=== PATIENT | female | born 1945 | race Hispanic/Latino ===

== ENCOUNTER 2021-11-11 07:27 | Inpatient (IN) | payer MEDICARE ==
[2021-11-11] MEDS ORDERED: SODIUM CHLORIDE 0.9% 1000 ML 1,000 ML IV ONE (07:59)
[2021-11-11] MEDS ORDERED: PANTOPRAZOLE 40 MG INJ IV ONE (07:59)
[2021-11-11] MEDS ORDERED: ONDANSETRON 4 MG/2 ML INJ IV ONE (07:59)
[2021-11-11] MEDS ORDERED: FAMOTIDINE 20 MG/2 ML INJ IV ONE (08:00)
[2021-11-11] MEDS ORDERED: LACTATED RINGERS 1,000 ML IV ONE (08:37)
--- NOTE | 2021-11-11 08:38 | XRay Report ---
XR chest 1V ap INDICATION / CLINICAL INFORMATION: weakness, vomiting. COMPARISON: None available. FINDINGS: SUPPORT DEVICES: None. HEART /PULMONARY VASCULATURE: No significant abnormality. LUNGS / PLEURA: There is patchy airspace consolidation of the right mid and lower lung. Mild patchy o pacities in the left lung base. No sizable pleural effusion. No pneumothorax. ADDITIONAL FINDINGS: No significant additional findings. IMPRESSION: Findings indicative of bibasilar pneumonia, right greater than left. Signer Name: Brian Hanson MD Signed: 11/11/2021 8:34 AM Workstation Name: [id number]
--- NOTE | 2021-11-11 08:44 | Emergency Department Report ---
ED Abdominal Pain HPI - General Chief Complaint: GI Bleed Stated Complaint: GI BLEED Time Seen by Provider: 11/11/21 07:58 Source: EMS Mode of arrival: Stretcher Limitations: Altered Mental Status, Physical Limitation - History of Present Illness Initial Comments: 76-year-old female with unknown past medical history brought in by EMS from personal skilled nursing for vomiting blood. Patient is altered here with respect to her mental status and no family members or close friends are present to provide additional HPI. Report provided to me by the emergency department nurse,Britany. Per EMSs report, patient lives at a personal care facility and has not been visited by a nurse for 2 days. The patient was in her usual state of health last night. She is found by a roommate to be confused and covered in coffee- ground emesis. No further information provided Patient denies any pain at this time but states "I feel confused." She cannot tell this provider when she started vomiting coffee-ground emesis. She denies any chest pain shortness of breath or difficulty breathing. She cannot provide information concerning what medications she currently takes MD Complaint: other (unknown exact time of onset of symptoms) -: unknown Location: diffuse Radiation: none Migration to: no migration Severity: Unable to Determine Severity scale (0 -10): 6 Quality: other (Patient unable to determine at this time) Improves With: other (Patient unable to determine at this time) Worsens With: other (Patient unable to determine at this time) Context: other (Patient unable to determine at this time) Associated Symptoms: nausea, vomiting, other Treatments Prior to Arrival: other (Patient unable to determine at this time) - Related Data LMP (females 10-50): other (Not applicable) Allergies Allergy/AdvReac Type Severity Reaction Status Date / Time tetracycline Allergy Unknown Verified 11/11/21 07:36 ED Review of Systems ROS: Stated complaint: GI BLEED Other details as noted in HPI Comment: Unobtainable due to pts medical conditions ED Past Medical Hx - Past Medical History Previous Medical History?: Yes Hx Hypertension: Yes Hx GERD: Yes Hx Asthma: Yes Hx COPD: Yes - Surgical History Additional Surgical History: unknown; pt unable to provide information - Family History Family history: no significant - Social History Smoking Status: Former Smoker ED Physical Exam - General Limitations: No Limitations, Physical Limitation General appearance: lethargic, other (pale, ashen appearing) - Head Head exam: Present: atraumatic, normocephalic - Eye Eye exam: Present: normal appearance, PERRL, EOMI, other (conjunctival pallor) - ENT ENT exam: Present: normal exam, mucous membranes dry, other (dry coffee ground emesis on pt's tongue; no visualized foreign bodies on the patient's oropharynx) - Neck Neck exam: Present: normal inspection, full ROM. Absent: tenderness, meningismus, lymphadenopathy, thyromegaly, other - Respiratory Respiratory exam: Present: normal lung sounds bilaterally, respiratory distress. Absent: wheezes, rales, rhonchi, chest wall tenderness, accessory muscle use, decreased breath sounds - Cardiovascular Cardiovascular Exam: Present: regular rate, normal rhythm, normal heart sounds. Absent: bradycardia, tachycardia, irregular rhythm, systolic murmur, diastolic murmur, rubs, gallop, clicks, JVD, S3, S4, other - GI/Abdominal GI/Abdominal exam: Present: soft, diminished bowel sounds. Absent: tenderness, guarding, rebound, rigid, normal bowel sounds, hyperactive bowel sounds, hypoactive bowel sounds, organomegaly, mass, bruit, pulsatile mass - Rectal Rectal exam: Present: black stool - External exam: Present: normal external exam - Extremities Exam Extremities exam: Present: normal inspection, full ROM, normal capillary refill. Absent: tenderness, joint swelling, calf tenderness, other - Back Exam Back exam: Present: normal inspection, full ROM. Absent: CVA tenderness (R), CVA tenderness (L), muscle spasm, paraspinal tenderness, vertebral tenderness - Neurological Exam Neurological exam: Present: altered, CN II-XII intact, motor sensory deficit, reflexes normal, other (unable to test gait secondary to pt's mental status ) - Psychiatric Psychiatric exam: Present: normal affect, normal mood - Skin Skin exam: Present: warm, dry, intact, pallor. Absent: normal color, rash, cyanosis, diaphoretic, erythema, urticaria, vesicles, abrasion, ecchymosis ED Course Vital Signs 11/11/21 11/11/21 07:30 08:14 Temperature 97.9 F 98.1 F Pulse Rate 92 H 95 H Respiratory 16 14 Rate Blood Pressure 104/53 Blood Pressure 132/76 104/53 [Left] O2 Sat by Pulse 97 97 Oximetry - Reevaluation(s) Reevaluation #1: 06/24/22 10:50 Patient has stable vitals. She remains ill-appearing although her pallor has improved. Her speech is clear. She denies any pain. ED Medical Decision Making - Lab Data Result diagrams: 11/11/21 08:18 11/11/21 08:18 - EKG Data -: EKG Interpreted by Me EKG shows normal: sinus rhythm Rate: normal - EKG Data When compared to previous EKG there are: previous EKG unavailable Interpretation: no acute changes 11/11/21 11:50 Sinus rhythm. Ventricular rate 96 bpm. P waves are present and proceed every QRS complex. Intervals normal. No ST segment depressions or elevations. No T wave flattening or inversions. No ectopy. No arrhythmia. Normal axis. Sinus rhythm. - Radiology Data Radiology results: report reviewed - Medical Decision Making 76-year-old female with multiple medical comorbidities brought in by EMS for weakness and coffee-ground emesis, weakness, altered mental status., With timing of onset of symptoms unknown. Patient found to have multiple electrolyte derangements on work-up and significant leukocytosis. Chest x-ray reviewed. CT head and abdomen pelvis results reviewed. Patient given multiple liters of normal saline, Zofran, Pepcid, she was started on a Protonix drip, she was given ceftriaxone and azithromycin for broad-spectrum antibiotic coverage. Case reviewed with admitting hospitalist, Dr. Villasenor. I believe the pt will require admission to the MICU. Pt's care transferred to him for the pt's inpatient admission. Critical Care Time: Yes Critical care time in (mins) excluding proc time.: 30 Critical care attestation.: If time is entered above; I have spent that time in minutes in the direct care of this critically ill patient, excluding procedure time. ED Disposition Clinical Impression: Upper GI bleed, Sepsis, Community acquired pneumonia Disposition: ADMITTED INPATIENT Is pt being admited?: Yes Does the pt Need Aspirin: No Condition: Serious Instructions: Bacterial Pneumonia (ED) Forms: Accompanied Note
[2021-11-11] MEDS ORDERED: cefTRIAXone/NS 1 GM/50 ML 1 GM/50 ML BAG IV ONE (09:12)
[2021-11-11] MEDS ORDERED: AZITHROMYCIN/NS 500 MG/250 ML 500 MG/250 ML BAG IV ONE (09:13)
[2021-11-11 09:15] LABS: Hematocrit 35.7 % (30.3-42.9); Hemoglobin 11.1 gm/dl (10.1-14.3); Mean Corpuscular HGB Conc 31 % (30-34); Mean Corpuscular Volume 89 fl (79-97); Platelet Count 314 K/mm3 (140-440); Red Blood Count 4.01 M/mm3 (3.65-5.03); Red Cell Distribution Width 17.3 % (13.2-15.2)
[2021-11-11 09:39] LABS: INR 1.13 (0.87-1.13)
[2021-11-11 09:42] LABS: Partial Thromboplastin Time 32.4 Sec. (24.2-36.6)
--- NOTE | 2021-11-11 09:47 | Cat Scan Report ---
CT BRAIN: 11/11/2021 INDICATION / CLINICAL INFORMATION: altered mental status. COMPARISON: None available. FINDINGS: BRAIN/INTRACRANIAL STRUCTURES: Unenhanced CT images of the brain demonstrate no evidence of acute abn ormality. Ventricles and sulci are prominent in size, consistent with diffuse cerebral atrophy. Chronic white matter hypoattenuation is present throughout the cerebral hemispheric white matter, con sistent with chronic small vessel ischemic change. There is no CT evidence of acute ischemic injury, hemorrhage, or mass. There are no abnormal extra-ax ial fluid collections. EXTRACRANIAL STRUCTURES: Unremarkable. IMPRESSION: No acute abnormality. All CT scans at this location are performed using dose reduction to ALARA by means of automated expos ure control. Signer Name: Leland Elliott MD Signed: 11/11/2021 9:43 AM Workstation Name: [id number] [id number]
--- NOTE | 2021-11-11 09:58 | Cat Scan Report ---
CT ABDOMEN AND PELVIS WITHOUT CONTRAST INDICATION / CLINICAL INFORMATION: altered mental status, coffee ground emesis, hypot. TECHNIQUE: Axial CT images were obtained through the abdomen and pelvis without IV contrast. All CT scans at [facility] location are performed using CT dose reduction for ALARA by means of automated exposure control. COMPARISON: None available. FINDINGS: LOWER CHEST: Probable multifocal pneumonia is seen throughout the included portions of the right lung . Mild atelectasis is seen along the left lung base. There is severe calcification of the mitral valv e with moderate coronary atherosclerosis. No other significant abnormality. LIVER: No significant abnormality. GALLBLADDER: Surgically absent. BILE DUCTS: No significant abnormality. PANCREAS: No significant abnormality. SPLEEN: No significant abnormality. ADRENALS: No significant abnormality. RIGHT KIDNEY/URETER: No significant abnormality. LEFT KIDNEY/URETER: No significant abnormality. STOMACH/SMALL BOWEL: No significant abnormality. COLON: No significant abnormality. APPENDIX: No significant abnormality. PERITONEUM: No free fluid. No free air. No fluid collection. LYMPH NODES: No significant adenopathy. VASCULATURE: There is mild atherosclerosis. No other significant abnormality. URINARY BLADDER: Drained by a Stanford catheter. REPRODUCTIVE ORGANS: Prior hysterectomy. No significant abnormality. ADDITIONAL FINDINGS: None. BONES: No acute findings. There is moderate spondylosis with mild lumbar dextroscoliosis. IMPRESSION: 1. Suspected multifocal right pneumonia. 2. No acute findings in the abdomen or pelvis by noncontrast imaging to account for the patient's cof fee ground emesis. 3. Additional findings as above. Signer Name: Srinivasa Bell MD Signed: 11/11/2021 9:54 AM Workstation Name: [employer]
[2021-11-11 10:33] LABS: Band Neutrophils # (Manual) 1.1 K/mm3; Basophils % (Manual) 0 % (0.0-1.8); Eosinophils % (Manual) 0 % (0.0-4.3); Total Cells Counted 200
[2021-11-11 10:37] LABS: Large Platelets Rare; Ovalocytes Rare; Platelet Estimate Consistent w Auto; Poikilocytosis Few
[2021-11-11 10:45] LABS: Albumin 3.5 g/dL (3.9-5); Calcium 8.5 mg/dL (8.4-10.2)
[2021-11-11 11:13] LABS: Bilirubin,Urine Negative (Negative); Blood,Urine Negative (Negative); Color,Urine Yellow (Yellow); Hyaline Casts,Urine 2 /LPF; Mucus,Urine FEW /HPF; Urobilinogen,Urine < 2.0 mg/dL (<2.0)
--- NOTE | 2021-11-11 11:14 | History and Physical Report ---
History of Present Illness Chief complaint: She is confused and was coughing up blood History of present illness: 76 YO Female Personal Long-Term Resident with Vascular Dementia, Cerebral Atherosclerosis, HTN, GERD, Obesity, COPD, Asthma presents ED for evaluation. Patient is confused and lethargic with diminished cognition at the time my evaluation and is unable to provide history. Patient history provided by EMS staff, ED staff, as well as personal halfway staff. As per staff the patient was in her usual state of health overnight and was found by a roommate today to be confused and coughing up blood. EMS was notified and upon arrival the patient was found to be in distress and subsequently transported to [facility] for further care and evaluation of the aforementioned symptoms. The patient was seen and evaluated in the emergency department. All lab and imaging studies reviewed. Patient found to have pneumonia complicated by sepsis, toxic metabolic encephalopathy, lactic acidosis, hyponatremia, acute kidney injury, as well as elevated liver function test. Patient also found to have evidence of upper GI bleed. GI team consulted in ED. Patient admitted to IMCU due to risk of worsening symptoms and for medical stabilization. Patient initiated on sepsis protocol as well as pneumonia protocol. No prior admission for review. No medication listed at time of admission for reconciliation. Advanced care planning conducted in ED. Patient remains confused and lethargic but has a positive gag reflex and is able to protect her airway without difficulty at this time. Past History Past Medical History: COPD, GERD, hypertension, other (See HPI) Past Surgical History: Other (Unable to obtain) Social history: . denies: smoking, alcohol abuse, prescription drug abuse Family history: hypertension Medications and Allergies Allergies Allergy/AdvReac Type Severity Reaction Status Date / Time tetracycline Allergy Unknown Verified 11/11/21 07:36 Active Meds: Active Medications Pantoprazole Sodium 80 mg/ (Sodium Chloride) 100 mls @ 10 mls/hr IV DIRECT LORNE Review of Systems ROS unobtainable: due to mental status Exam - Constitutional Vitals: Temp Pulse Resp BP Pulse Ox 98.1 F 95 H 14 104/53 97 11/11/21 08:14 11/11/21 08:14 11/11/21 08:14 11/11/21 08:14 11/11/21 08:14 General appearance: Present: mild distress, obese - EENT Eyes: Present: PERRL ENT: hearing intact, clear oral mucosa, other (Dried blood on the patient's lips and in the oropharynx) - Neck Neck: Present: supple - Respiratory Respiratory effort: labored Respiratory: bilateral: diminished - Cardiovascular Rhythm: regular - Extremities Extremities: pulses symmetrical, No edema Peripheral Pulses: abnormal (Capillary refill greater than 3.5 seconds) - Abdominal General gastrointestinal: Present: soft, non-tender, non-distended - Integumentary Integumentary: Present: dry, clammy, decreased turgor - Musculoskeletal Musculoskeletal: generalized weakness - Psychiatric Psychiatric: no appropriate mood/affect, no intact judgment & insight, no memory intact Results - Labs CBC & Chem 7: 11/11/21 08:18 11/11/21 08:18 Labs: Abnormal lab results 11/11/21 11/11/21 11/11/21 Range/Units 08:18 08:18 08:18 WBC 31.8 H (4.5-11.0) K/mm3 RDW 17.3 H (13.2-15.2) % Seg Neuts % (Manual) 91.0 H (40.0-70.0) % Lymphocytes % (Manual) 3.5 L (13.4-35.0) % Seg Neutrophils # Man 28.9 H (1.8-7.7) K/mm3 Lymphocytes # (Manual) 1.1 L (1.2-5.4) K/mm3 PT 15.8 H (12.2-14.9) Sec. Sodium 131 L (137-145) mmol/L Chloride 93.2 L (98-107) mmol/L Carbon Dioxide 18 L (22-30) mmol/L BUN 27 H (7-17) mg/dL Creatinine 2.4 H (0.6-1.2) mg/dL Glucose 136 H (65-100) mg/dL Lactic Acid (0.7-2.0) mmol/L AST 182 H (5-40) units/L ALT 101 H (7-56) units/L Albumin 3.5 L (3.9-5) g/dL 11/11/21 11/11/21 Range/Units 08:18 09:50 WBC (4.5-11.0) K/mm3 RDW (13.2-15.2) % Seg Neuts % (Manual) (40.0-70.0) % Lymphocytes % (Manual) (13.4-35.0) % Seg Neutrophils # Man (1.8-7.7) K/mm3 Lymphocytes # (Manual) (1.2-5.4) K/mm3 PT (12.2-14.9) Sec. Sodium (137-145) mmol/L Chloride (98-107) mmol/L Carbon Dioxide (22-30) mmol/L BUN (7-17) mg/dL Creatinine (0.6-1.2) mg/dL Glucose (65-100) mg/dL Lactic Acid 5.70 H* 6.10 H* (0.7-2.0) mmol/L AST (5-40) units/L ALT (7-56) units/L Albumin (3.9-5) g/dL Assessment and Plan - Patient Problems (1) Sepsis Status: Acute Qualifiers: Acute renal failure type: with acute tubular necrosis Plan to address problem: Sepsis protocol: Chest x-ray, CBC, BMP, urinalysis, IV fluid resuscitation therapy, IV antibiotic therapy, maintain mean arterial pressure greater than equal to 65, blood culture, monitor fluid balance, monitor urine output every shift (2) Gastrointestinal hemorrhage Status: Acute Plan to address problem: CT scan abdomen pelvis, stool for occult blood, GI team consulted. Patient hemoglobin stable at this time. Will consider packed red blood cell transfusion if patient drops hemoglobin greater than 2 g during 24-hour period. (3) Pneumonia Status: Acute Plan to address problem: Pneumonia protocol: Chest x-ray, CBC, CMP, IV antibiotic therapy, supplemental oxygen, pulse oximetry. (4) AUNG (acute kidney injury) Status: Acute Plan to address problem: IV fluid resuscitation therapy, BMP, repeat BMP in a.m. to monitor serum creatinine as well as GFR, monitor fluid balance, (5) Obesity Status: Acute Plan to address problem: Balanced diet, increase physical activity discharge. Outpatient pulmonary follow-up for sleep study. (6) Toxic metabolic encephalopathy Status: Acute Plan to address problem: CT scan head, neuro check, seizure precautions, aspiration precautions, fall precautions, treat sepsis. (7) Hyponatremia syndrome Status: Acute Plan to address problem: BMP, IV fluid resuscitation therapy, repeat BMP in a.m. to monitor serum sodium. (8) DVT prophylaxis Status: Acute Plan to address problem: SCD to bilateral lower extremities while in bed, prophylactic anticoagulation (9) Advance care planning Status: Acute Plan to address problem: Disease education data, care plan discussed, diagnoses discussed, prognosis discussed, patient is full code, +30 minutes. (10) Preventative health care Status: Acute Plan to address problem: Staff counseled regarding home safety precautions, outpatient follow-up with primary care physician for all age and risk factor appropriate screening test. +30 minutes.
[2021-11-11] MEDS ORDERED: LORazepam 2 MG/ML VIAL ONE (11:34)
[2021-11-11] MEDS ORDERED: ONDANSETRON 4 MG/2 ML INJ IV PRN (12:07)
[2021-11-11] MEDS ORDERED: oxyCODONE /ACETAMINOPHEN 5-325MG TAB PO PRN (12:07)
[2021-11-11] MEDS ORDERED: SODIUM CHLORIDE 0.9% 1000 ML IV SOLN IV ONE (12:07)
[2021-11-11] MEDS ORDERED: ACETAMINOPHEN 650 MG RECT SUPP PR PRN (12:07)
[2021-11-11] MEDS ORDERED: HYDROmorphone 0.5 MG/0.5 ML INJ IV PRN ×2 (12:07)
--- NOTE | 2021-11-11 12:19 | Procedure Note ---
Date of procedure: 11/11/21 Pre-op diagnosis: Sepsis Post-op diagnosis: same Procedure: Right femoral vein central line catheter placement under ultrasound guidance The patient was prepped and draped in the usual sterile fashion. A timeout was taken with the patient's nurse at bedside to verify the correct patient, the correct procedure, and the correct operative site. Local anesthesia obtained with 1% lidocaine. Ultrasound was utilized to localize the right femoral vein without difficulty. The Seldinger technique was utilized with a seeker needle to access the right femoral vein under ultrasound guidance without difficulty. A guidewire was then advanced via the seeker needle into the right femoral vein and the seeker needle subsequently removed over the guidewire. A scalpel was used to incise the skin at the insertion site. A dilator was then passed over the guidewire into the right femoral vein without difficulty and subsequently removed. A preflush triple-lumen catheter was then advanced into the right femoral vein and the guidewire subsequently removed. All 3 ports flush and drawl with ease. 3-0 silk suture was utilized to suture the line in place. A Biopatch was placed at the insertion site. A sterile dressing was utilized to cover the right femoral vein central line catheter. Estimated blood loss minimal. Specimens none complications none. Anesthesia: local Surgeon: MARK MALIK Estimated blood loss: minimal Pathology: none Condition: other ([facility])
--- NOTE | 2021-11-11 13:54 | Electrocardiograph Report ---
[facility] Test Date: 2021-11-11 Test Time: 11:22:19 Pat Name: SHIVA DENG Department: Room: [facility] Gender: F Blade Aligner: CALLIE : 1945 Requested By: CANDY GUILLEN Order Number: [id number] Reading MD: Hanane Bustos Measurements Intervals [place] Rate: 96 P: 22 UT: 144 QRS: -2 QRSD: 96 T: 79 QT: 353 QTc: 445 Interpretive Statements Sinus rhythm No previous ECG available for comparison Electronically Signed On 11-11-2021 13:54:13 EDT by Hanane Bustos
[2021-11-11] MEDS ORDERED: SODIUM CHLORIDE 0.9% 1000 ML 1,000 ML ONE (14:21)
[2021-11-11] MEDS: HEPARIN 5,000 UNIT/1 ML VIAL SUB-Q SCH ×2 (16:21→21:52)
[2021-11-11] MEDS: cefTRIAXone/NS 2 GM/100 ML 2 GM/100 ML BAG IV SCH (18:16)
[2021-11-11] MEDS: AZITHROMYCIN/NS 500 MG/250 ML 500 MG/250 ML BAG IV SCH (18:18)
[2021-11-11] MEDS ORDERED: PANTOPRAZOLE 40 MG INJ IV SCH (22:00)
--- NOTE | 2021-11-12 00:34 | Consultation ---
DATE OF CONSULTATION: 11/11/2021 REFERRING PHYSICIAN: Dr. Tomi Eugene. INDICATION: GI bleed. HISTORY OF PRESENT ILLNESS: The patient is a 76-year-old female with history of dementia, hypertension, reflux, obesity, COPD and asthma. The patient was found confused and lethargic and was brought to the Emergency Room. There is report of patient may have some coffee emesis. The patient subsequently was diagnosed with sepsis and pneumonia and admitted. The patient without any noted melena or hematemesis since coming to the Emergency Room. No other specific complaints. The patient remains confused and lethargic. All the history per chart. No other specific complaints. PAST MEDICAL HISTORY: 1. Reflux. 2. Hypertension. 3. Chronic obstructive pulmonary disease. MEDICATIONS: Reviewed, updated in chart. ALLERGIES: TETRACYCLINE. SOCIAL HISTORY: No alcohol, tobacco or drug abuse. FAMILY HISTORY: Colon cancer. REVIEW OF SYSTEMS: GENERAL: Some weakness. HEENT: No visual complaints or tinnitus. PULMONARY: No shortness of breath, chest pain. GASTROINTESTINAL: Reports hematemesis. All points of 13-point review of system otherwise negative. PHYSICAL EXAMINATION: VITAL SIGNS: Temperature 98.8, pulse 97, respirations 20, blood pressure 100/50. GENERAL: Obese female, in no acute distress. HEENT: Pupils round and reactive. PULMONARY: Rhonchi. CARDIOVASCULAR: Regular rate and rhythm. Normal S1, S2. ABDOMEN: Positive bowel sounds, soft. SKIN: No obvious rashes. LABORATORY DATA: Pertinent for white count 32, hemoglobin and hematocrit 11.1 and 35.7, platelet count of 314. Coags within normal limits. Chem-7: Sodium of 131, potassium 4.8, chloride 93, CO2 of 18, BUN and creatinine of 27 and 2.4. ASSESSMENT: A 76-year-old male with multiple medical problems as above, being seen now for altered mental status with reported some coffee emesis. The patient now diagnosed with pneumonia and sepsis. The patient is showing no further signs of bleeding since being admitted. His hemoglobin and hematocrit are stable. Management as noted below. PLAN: 1. Follow hematocrit and transfuse as needed. 2. PPI IV b.i.d. 3. Pneumonia and other issues per primary team. 4. No plans for EGD or other GI intervention at this time. 5. We will follow further recommendation based on progress. TID: [id number] RECEIPT: [id number] CAB/GOLDIE
[2021-11-12] MEDS: PANTOPRAZOLE 80 MG in SODIUM CHLORIDE 0.9% 100 ML IV SCH ×2 (02:19→13:48)
[2021-11-12 05:10] LABS: Hematocrit 26.9 % (30.3-42.9); Hemoglobin 8.4 gm/dl (10.1-14.3); Mean Corpuscular HGB Conc 31 % (30-34); Mean Corpuscular Volume 89 fl (79-97); Platelet Count 221 K/mm3 (140-440); Red Blood Count 3.03 M/mm3 (3.65-5.03); Red Cell Distribution Width 17.3 % (13.2-15.2)
[2021-11-12 05:35] LABS: Albumin 3.5 g/dL (3.9-5); Calcium 7.6 mg/dL (8.4-10.2)
[2021-11-12 06:30] LABS: Basophils % (Manual) 0 % (0.0-1.8); Eosinophils % (Manual) 0 % (0.0-4.3); Monocytes % (Manual) 0 % (0.0-7.3); Total Cells Counted 100
[2021-11-12 06:31] LABS: Ovalocytes Few
[2021-11-12 06:32] LABS: Platelet Estimate Consistent w Auto
--- NOTE | 2021-11-12 11:20 | Progress Note ---
Assessment and Plan Assessment and plan: 76 YO Female Personal Nursing Home Resident with Vascular Dementia, Cerebral Atherosclerosis, HTN, GERD, Obesity, COPD, Asthma presents ED for evaluation. Patient is confused and lethargic with diminished cognition at the time my evaluation and is unable to provide history. Patient history provided by EMS staff, ED staff, as well as personal longterm staff. As per staff the patient was in her usual state of health overnight and was found by a roommate today to be confused and coughing up blood. EMS was notified and upon arrival the patient was found to be in distress and subsequently transported to [facility] for further care and evaluation of the aforementioned symptoms. The patient was seen and evaluated in the emergency department. All lab and imaging studies reviewed. Patient found to have pneumonia complicated by sepsis, toxic metabolic encephalopathy, lactic acidosis, hyponatremia, acute kidney injury, as well as elevated liver function test. Patient also found to have evidence of upper GI bleed. GI team consulted in ED. Patient admitted to IMCU due to risk of worsening symptoms and for medical stabilization. Patient initiated on sepsis protocol as well as pneumonia protocol. No prior admission for review. No medication listed at time of admission for reconciliation. Advanced care planning conducted in ED. Patient remains confused and lethargic but has a positive gag reflex and is able to protect her airway without difficulty at this time. 11/12: Patient seen and evaluated. No abdominal pain noted no further hematemesis appreciated. CT abdomen pelvis concerning for suspected multifocal right pneumonia. Considering sepsis picture initially on admission will also rule out COVID. ID consulted. I will repeat H&H this generalized decrease and CBC numbers noted this could be due to dilution from fluid administered. Unfortunately I do not know what her baseline is. She does have what appears to be elevated liver enzymes. We will obtain an ultrasound of the abdomen when able probably in AM. Will await GI evaluation I will also check hepatitis profile. I have requested records from the facility where she came from and plan discussed with the patient and also with nursing staff. CT abdomen and pelvis (1) Sepsis Status: Acute Qualifiers: Acute renal failure type: with acute tubular necrosis Plan to address problem: Sepsis protocol: Chest x-ray, CBC, BMP, urinalysis, IV fluid resuscitation therapy, IV antibiotic therapy, maintain mean arterial pressure greater than equal to 65, blood culture, monitor fluid balance, monitor urine output every shift (2) Gastrointestinal hemorrhage Status: Acute Plan to address problem: CT scan abdomen pelvis, stool for occult blood, GI team consulted. Patient hemoglobin stable at this time. Will consider packed red blood cell transfusion if patient drops hemoglobin greater than 2 g during 24-hour period. (3) Pneumonia Status: Acute Plan to address problem: Pneumonia protocol: Chest x-ray, CBC, CMP, IV antibiotic therapy, supplemental oxygen, pulse oximetry. (4) AUNG (acute kidney injury) with vasomotor nephropathy Status: Acute Plan to address problem: IV fluid resuscitation therapy, BMP, repeat BMP in a.m. to monitor serum creatinine as well as GFR, monitor fluid balance, (5) Obesity Status: Acute Plan to address problem: Balanced diet, increase physical activity discharge. Outpatient pulmonary follow-up for sleep study. (6) Toxic metabolic encephalopathy Status: Acute Plan to address problem: CT scan head, neuro check, seizure precautions, aspiration precautions, fall precautions, treat sepsis. (7) Hyponatremia syndrome Status: Acute Plan to address problem: BMP, IV fluid resuscitation therapy, repeat BMP in a.m. to monitor serum sodium. (8) elevated liver enzymes possible hepatitis (9) DVT prophylaxis Status: Acute Plan to address problem: SCD to bilateral lower extremities while in bed, prophylactic anticoagulation (10) Advance care planning Status: Acute Plan to address problem: Disease education data, care plan discussed, diagnoses discussed, prognosis discussed, patient is full code, +30 minutes. (11) Preventative health care Status: Acute Plan to address problem: Staff counseled regarding home safety precautions, outpatient follow-up with primary care physician for all age and risk factor appropriate screening test. +30 minutes. History Interval history: Patient seen and examined no further vomiting noted no abdominal pain or elevated blood pressure. She is angry and upset and wants to eat. Hospitalist Physical - Physical exam Narrative exam: VITAL SIGNS: Reviewed. GENERAL: The patient appears normally developed, obese vital signs as documented. HEAD: No signs of head trauma. EYES: Pupils are equal. Extraocular motions intact. EARS: Hearing grossly intact. MOUTH: Oropharynx is normal. NECK: No adenopathy, no JVD. CHEST: Chest with clear breath sounds bilaterally. No wheezes, rales, or rhonchi. CARDIAC: Regular rate and rhythm. S1 and S2, without murmurs, gallops, or rubs. VASCULAR: No Edema. Peripheral pulses normal and equal in all extremities. ABDOMEN: Soft, non tender and non distended. No rebound or guarding, and no masses palpated. Bowel Sounds normal. MUSCULOSKELETAL: Good range of motion of all major joints. Extremities without clubbing, cyanosis or edema. NEUROLOGIC EXAM: Alert and oriented x 3 No focal sensory or strength deficits. Speech normal. Follows commands. PSYCHIATRIC: Mood normal. SKIN: detail exam as documented in skin assessment - Constitutional Vitals: Temp Pulse Resp BP Pulse Ox 98.9 F 103 H 25 H 124/86 89 11/12/21 04:00 11/12/21 06:01 11/12/21 06:01 11/12/21 06:01 11/12/21 05:31 General appearance: Present: mild distress, obese Results - Labs CBC & Chem 7: 11/12/21 04:54 11/12/21 04:54 Labs: Laboratory Last Values WBC 20.7 K/mm3 (4.5-11.0) H 11/12/21 04:54 RBC 3.03 M/mm3 (3.65-5.03) L 11/12/21 04:54 Hgb 8.4 gm/dl (10.1-14.3) L 11/12/21 04:54 Hct 26.9 % (30.3-42.9) L D 11/12/21 04:54 MCV 89 fl (79-97) 11/12/21 04:54 MCH 28 pg (28-32) 11/12/21 04:54 MCHC 31 % (30-34) 11/12/21 04:54 RDW 17.3 % (13.2-15.2) H 11/12/21 04:54 Plt Count 221 K/mm3 (140-440) 11/12/21 04:54 Add Manual Diff Complete 11/12/21 04:54 Total Counted 100 11/12/21 04:54 Seg Neutrophils % Catering Manager 11/12/21 04:54 Seg Neuts % (Manual) 93.0 % (40.0-70.0) H 11/12/21 04:54 Band Neutrophils % 0 % 11/12/21 04:54 Lymphocytes % (Manual) 7.0 % (13.4-35.0) L 11/12/21 04:54 Reactive Lymphs % (Man) 0 % 11/12/21 04:54 Monocytes % (Manual) 0 % (0.0-7.3) 11/12/21 04:54 Eosinophils % (Manual) 0 % (0.0-4.3) 11/12/21 04:54 Basophils % (Manual) 0 % (0.0-1.8) 11/12/21 04:54 Metamyelocytes % 0 % 11/12/21 04:54 Myelocytes % 0 % 11/12/21 04:54 Promyelocytes % 0 % 11/12/21 04:54 Blast Cells % 0 % 11/12/21 04:54 Nucleated RBC % Not Reportable 11/12/21 04:54 Seg Neutrophils # Man 19.3 K/mm3 (1.8-7.7) H 11/12/21 04:54 Band Neutrophils # 0.0 K/mm3 11/12/21 04:54 Lymphocytes # (Manual) 1.4 K/mm3 (1.2-5.4) 11/12/21 04:54 Abs React Lymphs (Man) 0.0 K/mm3 11/12/21 04:54 Monocytes # (Manual) 0.0 K/mm3 (0.0-0.8) 11/12/21 04:54 Eosinophils # (Manual) 0.0 K/mm3 (0.0-0.4) 11/12/21 04:54 Basophils # (Manual) 0.0 K/mm3 (0.0-0.1) 11/12/21 04:54 Metamyelocytes # 0.0 K/mm3 11/12/21 04:54 Myelocytes # 0.0 K/mm3 11/12/21 04:54 Promyelocytes # 0.0 K/mm3 11/12/21 04:54 Blast Cells # 0.0 K/mm3 11/12/21 04:54 WBC Morphology Not Reportable 11/12/21 04:54 Hypersegmented Neuts Not Reportable 11/12/21 04:54 Hyposegmented Neuts 1+ 11/12/21 04:54 Hypogranular Neuts Not Reportable 11/12/21 04:54 Smudge Cells Not Reportable 11/12/21 04:54 Toxic Granulation Not Reportable 11/12/21 04:54 Toxic Vacuolation Not Reportable 11/12/21 04:54 Dohle Bodies Not Reportable 11/12/21 04:54 Pelger-Huet Anomaly Not Reportable 11/12/21 04:54 Nela Rods Not Reportable 11/12/21 04:54 Platelet Estimate Consistent w auto 11/12/21 04:54 Clumped Platelets Not Reportable 11/12/21 04:54 Plt Clumps, EDTA Not Reportable 11/12/21 04:54 Large Platelets Not Reportable 11/12/21 04:54 Giant Platelets Not Reportable 11/12/21 04:54 Platelet Satelliting Not Reportable 11/12/21 04:54 Plt Morphology Comment Not Reportable 11/12/21 04:54 RBC Morphology Not Reportable 11/12/21 04:54 Dimorphic RBCs Not Reportable 11/12/21 04:54 Polychromasia Not Reportable 11/12/21 04:54 Hypochromasia Not Reportable 11/12/21 04:54 Poikilocytosis Not Reportable 11/12/21 04:54 Anisocytosis Not Reportable 11/12/21 04:54 Microcytosis Not Reportable 11/12/21 04:54 Macrocytosis Not Reportable 11/12/21 04:54 Spherocytes Not Reportable 11/12/21 04:54 Pappenheimer Bodies Not Reportable 11/12/21 04:54 Sickle Cells Not Reportable 11/12/21 04:54 Target Cells Not Reportable 11/12/21 04:54 Tear Drop Cells Not Reportable 11/12/21 04:54 Ovalocytes Few 11/12/21 04:54 Helmet Cells Not Reportable 11/12/21 04:54 Meyer-[place] Bodies Not Reportable 11/12/21 04:54 [place] Rings Not Reportable 11/12/21 04:54 Suni Cells Not Reportable 11/12/21 04:54 Bite Cells Not Reportable 11/12/21 04:54 Crenated Cell Not Reportable 11/12/21 04:54 Elliptocytes Few 11/12/21 04:54 Acanthocytes (Spur) Not Reportable 11/12/21 04:54 Rouleaux Not Reportable 11/12/21 04:54 Hemoglobin C Crystals Not Reportable 11/12/21 04:54 Schistocytes Not Reportable 11/12/21 04:54 Malaria parasites Not Reportable 11/12/21 04:54 Al Bodies Not Reportable 11/12/21 04:54 Hem Pathologist Commnt No 11/12/21 04:54 PT 15.8 Sec. (12.2-14.9) H 11/11/21 08:18 INR 1.13 (0.87-1.13) 11/11/21 08:18 APTT 32.4 Sec. (24.2-36.6) 11/11/21 08:18 Sodium 136 mmol/L (137-145) L 11/12/21 04:54 Potassium 4.7 mmol/L (3.6-5.0) 11/12/21 04:54 Chloride 101.2 mmol/L (98-107) 11/12/21 04:54 Carbon Dioxide 24 mmol/L (22-30) 11/12/21 04:54 Anion Gap 16 mmol/L 11/12/21 04:54 BUN 35 mg/dL (7-17) H 11/12/21 04:54 Creatinine 1.5 mg/dL (0.6-1.2) H 11/12/21 04:54 Estimated GFR 34 ml/min 11/12/21 04:54 BUN/Creatinine Ratio 23 % 11/12/21 04:54 Glucose 85 mg/dL (65-100) 11/12/21 04:54 Lactic Acid 0.70 mmol/L (0.7-2.0) 11/12/21 00:12 Calcium 7.6 mg/dL (8.4-10.2) L 11/12/21 04:54 Total Bilirubin 0.30 mg/dL (0.1-1.2) 11/12/21 04:54 AST 291 units/L (5-40) H 11/12/21 04:54 ALT 161 units/L (7-56) H 11/12/21 04:54 Alkaline Phosphatase 71 units/L (35-129) 11/12/21 04:54 Total Protein 5.5 g/dL (6.3-8.2) L D 11/12/21 04:54 Albumin 3.5 g/dL (3.9-5) L 11/12/21 04:54 Albumin/Globulin Ratio 1.8 % 11/12/21 04:54 Urine Color Yellow (Yellow) 11/11/21 Unknown Urine Turbidity Clear (Clear) 11/11/21 Unknown Urine pH 5.0 (5.0-7.0) 11/11/21 Unknown Ur Specific [place] 1.020 (1.003-1.030) 11/11/21 Unknown Urine Protein 30 mg/dl mg/dL (Negative) 11/11/21 Unknown Urine Glucose (UA) Negative mg/dL (Negative) 11/11/21 Unknown Urine Ketones Negative mg/dL (Negative) 11/11/21 Unknown Urine Blood Negative (Negative) 11/11/21 Unknown Urine Nitrite Negative (Negative) 11/11/21 Unknown Ur Reducing Substances Not Reportable 11/11/21 Unknown Urine Bilirubin Negative (Negative) 11/11/21 Unknown Urine Ictotest Not Reportable 11/11/21 Unknown Urine Urobilinogen < 2.0 mg/dL (<2.0) 11/11/21 Unknown Ur Leukocyte Esterase Negative (Negative) 11/11/21 Unknown Urine WBC (Auto) 1.0 /HPF (0.0-6.0) 11/11/21 Unknown Urine RBC (Auto) 2.0 /HPF (0.0-6.0) 11/11/21 Unknown U Epithel Cells (Auto) 3.0 /HPF (0-13.0) 11/11/21 Unknown Hyaline Casts 2 /LPF 11/11/21 Unknown Urine Mucus Few /HPF 11/11/21 Unknown SARS-CoV-2 (PCR) Negative (Negative) 11/11/21 11:02 Blood Type O POSITIVE 11/11/21 12:18 Antibody Screen TNR 11/11/21 12:18 NIKI Antibody Screen Negative 11/11/21 12:18 Microbiology: Microbiology 11/11/21 09:50 Peripheral/Venous Blood Culture - Preliminary NO GROWTH AFTER 24 HOURS [place]/IV: Voiding Method Urinal Active Medications - Current Medications Current Medications: Generic Name Dose Route Start Last Admin Trade Name Freq PRN Reason Stop Dose Admin Acetaminophen 650 mg 11/11/21 12:07 Acetaminophen 325 Mg Tab PO Q6H PRN Pain, Mild (1-3) Acetaminophen 650 mg 11/11/21 12:07 Acetaminophen 650 Mg Rect Supp DE Q6H PRN Pain MILD(1-3)/Fever >100.5/MAYA Albuterol 2.5 mg 11/11/21 12:07 Albuterol 2.5 Mg/3 Ml Nebu IH Q3HRT PRN Shortness Of Breath Heparin Sodium (Porcine) 5,000 unit 11/13/21 14:00 Heparin 5,000 Unit/1 Ml Vial SUB-Q Q12HR LORNE Hydromorphone HCl 0.25 mg 11/11/21 12:07 Hydromorphone 0.5 Mg/0.5 Ml Inj IV Q4H PRN Pain, Moderate (4-6) Hydromorphone HCl 0.5 mg 11/11/21 12:07 11/11/21 21:47 Hydromorphone 0.5 Mg/0.5 Ml Inj IV 0.5 mg Q23H PRN Administration Pain , Severe (7-10) Pantoprazole Sodium 80 mg/ 100 mls @ 10 mls/hr 11/11/21 10:00 11/12/21 02:19 Sodium Chloride IV 8 mg/hr DIRECT LORNE 10 mls/hr Administration 8 MG/HR Ceftriaxone Sodium 2 gm in 100 mls @ 200 mls/hr 11/11/21 13:00 11/11/21 18:16 Rocephin/Ns 2 Gm/100 Ml IV Not Given Q24H [facility] Protocol Azithromycin 500 mg in 250 mls @ 250 mls/hr 11/11/21 13:00 11/11/21 18:18 Zithromax/Ns IV Not Given Q24H [facility] Protocol Ondansetron HCl 4 mg 11/11/21 12:07 Ondansetron 4 Mg/2 Ml Inj IV Q8H PRN Nausea And Vomiting Oxycodone/Acetaminophen 1 tab 11/11/21 12:07 Oxycodone /Acetaminophen 5-325mg Tab PO Q16H PRN Pain, Moderate (4-6) Pantoprazole Sodium 40 mg 11/11/21 22:00 Pantoprazole 40 Mg Inj IV BID LORNE Sodium Chloride 10 ml 11/11/21 22:00 11/11/21 21:53 Sodium Chloride 0.9% 10 Ml Flush Syringe IV 10 ml BID LORNE Administration Sodium Chloride 10 ml 11/11/21 12:07 Sodium Chloride 0.9% 10 Ml Flush Syringe IV PRN PRN LINE FLUSH
[2021-11-12] MEDS: cefTRIAXone/NS 2 GM/100 ML 2 GM/100 ML BAG IV SCH (13:48)
[2021-11-12] MEDS: AZITHROMYCIN/NS 500 MG/250 ML 500 MG/250 ML BAG IV SCH (13:49)
[2021-11-12 16:11] LABS: Hematocrit 25.4 % (30.3-42.9); Hemoglobin 8.1 gm/dl (10.1-14.3)
--- NOTE | 2021-11-12 17:02 | Progress Note ---
Assessment and Plan 1. Anemiapatient did drop hemoglobin from 11.1 yesterday to 8.4 today with IV hydration. However, there is no evidence of vianey GI bleeding as rectal exam today showed light brown stool. Baseline hemoglobin is unknown. -May stop IV PPI drip and keep on daily PPI Monitor hemoglobin and transfuse as needed We will try and find what baseline labs are. Patient was apparently at [facility] a week ago, though the details of that admission are unknown to me. Subjective Date of service: 11/12/21 Interval history: Please see consult note and report section from yesterday. Patient confused, and rambling. No specific complaints. No vianey GI bleeding. Objective - Constitutional Vitals: Vital Signs - 12hr 11/12/21 11/12/21 11/12/21 05:31 06:01 06:31 Temperature Pulse Rate 101 H 103 H 103 H Respiratory 17 25 H 21 Rate Blood Pressure 124/86 124/86 132/66 O2 Sat by Pulse 89 94 Oximetry 11/12/21 11/12/21 11/12/21 07:00 07:31 08:00 Temperature 99.6 F Pulse Rate 106 H 104 H 105 H Respiratory 17 Rate Blood Pressure 154/74 154/74 154/74 O2 Sat by Pulse 72 L 75 L 95 Oximetry 11/12/21 11/12/21 11/12/21 08:31 09:00 09:31 Temperature Pulse Rate 107 H 111 H 115 H Respiratory 29 H 30 H 29 H Rate Blood Pressure 154/74 154/74 153/113 O2 Sat by Pulse 82 L 86 Oximetry 11/12/21 11/12/21 11/12/21 10:00 10:01 10:31 Temperature Pulse Rate 85 103 H 104 H Respiratory 23 24 Rate Blood Pressure 152/69 152/69 O2 Sat by Pulse 93 93 Oximetry 11/12/21 11/12/21 11/12/21 11:01 11:31 12:01 Temperature Pulse Rate 102 H 103 H 106 H Respiratory 26 H 14 15 Rate Blood Pressure 154/73 154/73 154/73 O2 Sat by Pulse 94 92 81 L Oximetry 11/12/21 11/12/21 11/12/21 12:31 13:01 13:03 Temperature 99.0 F Pulse Rate 102 H 101 H Respiratory 24 28 H Rate Blood Pressure 154/73 154/73 O2 Sat by Pulse 94 92 Oximetry 11/12/21 11/12/21 11/12/21 13:31 14:00 14:31 Temperature Pulse Rate 103 H 98 H 97 H Respiratory 26 H 22 22 Rate Blood Pressure 154/73 121/51 121/51 O2 Sat by Pulse 95 94 Oximetry 11/12/21 15:01 Temperature Pulse Rate 107 H Respiratory 16 Rate Blood Pressure 121/51 O2 Sat by Pulse Oximetry General appearance: Present: no acute distress - EENT Eyes: PERRL, EOM intact ENT: hearing intact - Respiratory Respiratory effort: normal - Gastrointestinal General gastrointestinal: Present: soft, non-tender Rectal Exam: stool brown - Labs CBC & Chem 7: 11/12/21 15:42 11/12/21 04:54 Labs: Abnormal lab results 11/12/21 11/12/21 11/12/21 Range/Units 04:54 04:54 15:42 WBC 20.7 H (4.5-11.0) K/mm3 RBC 3.03 L (3.65-5.03) M/mm3 Hgb 8.4 L 8.1 L (10.1-14.3) gm/dl Hct 26.9 L D 25.4 L (30.3-42.9) % RDW 17.3 H (13.2-15.2) % Seg Neuts % (Manual) 93.0 H (40.0-70.0) % Lymphocytes % (Manual) 7.0 L (13.4-35.0) % Seg Neutrophils # Man 19.3 H (1.8-7.7) K/mm3 Sodium 136 L (137-145) mmol/L BUN 35 H (7-17) mg/dL Creatinine 1.5 H (0.6-1.2) mg/dL Calcium 7.6 L (8.4-10.2) mg/dL AST 291 H (5-40) units/L ALT 161 H (7-56) units/L Total Protein 5.5 L D (6.3-8.2) g/dL Albumin 3.5 L (3.9-5) g/dL Medications & Allergies - Medications Allergies/Adverse Reactions: Allergies tetracycline Allergy (Verified 11/11/21 07:36) Unknown Active Medications: Generic Name Dose Route Start Last Admin Trade Name Freq PRN Reason Stop Dose Admin Acetaminophen 650 mg 11/11/21 12:07 Acetaminophen 325 Mg Tab PO Q6H PRN Pain, Mild (1-3) Acetaminophen 650 mg 11/11/21 12:07 Acetaminophen 650 Mg Rect Supp AL Q6H PRN Pain MILD(1-3)/Fever >100.5/MAYA Albuterol 2.5 mg 11/11/21 12:07 Albuterol 2.5 Mg/3 Ml Nebu IH Q3HRT PRN Shortness Of Breath Heparin Sodium (Porcine) 5,000 unit 11/13/21 14:00 Heparin 5,000 Unit/1 Ml Vial SUB-Q Q12HR [facility] Hydromorphone HCl 0.25 mg 11/11/21 12:07 Hydromorphone 0.5 Mg/0.5 Ml Inj IV Q4H PRN Pain, Moderate (4-6) Hydromorphone HCl 0.5 mg 11/11/21 12:07 11/11/21 21:47 Hydromorphone 0.5 Mg/0.5 Ml Inj IV 0.5 mg Q23H PRN Administration Pain , Severe (7-10) Pantoprazole Sodium 80 mg/ 100 mls @ 10 mls/hr 11/11/21 10:00 11/12/21 13:48 Sodium Chloride IV 8 mg/hr DIRECT LORNE 10 mls/hr Administration 8 MG/HR Ceftriaxone Sodium 2 gm in 100 mls @ 200 mls/hr 11/11/21 13:00 11/12/21 13:48 Rocephin/Ns 2 Gm/100 Ml IV 200 mls/hr Q24H [facility] Administration Protocol Azithromycin 500 mg in 250 mls @ 250 mls/hr 11/11/21 13:00 11/12/21 13:49 Zithromax/Ns IV 250 mls/hr Q24H [facility] Administration Protocol Ondansetron HCl 4 mg 11/11/21 12:07 Ondansetron 4 Mg/2 Ml Inj IV Q8H PRN Nausea And Vomiting Oxycodone/Acetaminophen 1 tab 11/11/21 12:07 Oxycodone /Acetaminophen 5-325mg Tab PO Q16H PRN Pain, Moderate (4-6) Pantoprazole Sodium 40 mg 11/11/21 22:00 Pantoprazole 40 Mg Inj IV BID LORNE Sodium Chloride 10 ml 11/11/21 22:00 11/12/21 10:25 Sodium Chloride 0.9% 10 Ml Flush Syringe IV 10 ml BID LORNE Administration Sodium Chloride 10 ml 11/11/21 12:07 Sodium Chloride 0.9% 10 Ml Flush Syringe IV PRN PRN LINE FLUSH
[2021-11-12 17:25] LABS: Hepatitis B Surface Antigen Non-Reactive (Negative); Hepatitis C Virus Antibody Non-Reactive (NonReactive)
[2021-11-12] MEDS: ACETAMINOPHEN 325 MG TAB PO PRN (18:07)
[2021-11-12] MEDS ORDERED: ONDANSETRON 4 MG ODT TAB PO PRN (20:08)
[2021-11-12] MEDS ORDERED: DICYCLOMINE 20 MG TAB PO PRN (20:08)
[2021-11-12] MEDS: rOPINIRole 0.25 MG TAB PO SCH (21:40)
[2021-11-12] MEDS: QUEtiapine 100 MG TAB PO SCH (21:40)
[2021-11-13 05:00] LABS: Hematocrit 25.2 % (30.3-42.9); Mean Corpuscular HGB Conc 32 % (30-34); Mean Corpuscular Volume 87 fl (79-97); Platelet Count 188 K/mm3 (140-440); Red Blood Count 2.89 M/mm3 (3.65-5.03); Red Cell Distribution Width 17.1 % (13.2-15.2)
[2021-11-13 05:22] LABS: Alanine Aminotransferase 105 units/L (7-56); BUN/Creatinine Ratio 20; Blood Urea Nitrogen 16 mg/dL (7-17); Calcium 8.5 mg/dL (8.4-10.2); Hemolysis Index 3
--- NOTE | 2021-11-13 09:10 | Consultation ---
History of Present Illness Consult date: 11/13/21 Requesting physician: PAVAN QURESHI Consult reason: arrhythmia History of present illness: Pt is a 76-year-old female with a past medical hx of COPD (uses 2L O2 nightly), HFpEF, moderate mitral stenosis, esophagitis, PUD, diverticulosis, and Parkinson's disease who presented via EMS. Pt resides in a personal prison and was brought in after her roommate found her confused and coughing up blood. She is currently admitted with sepsis and PNA, as well as anemia in the setting of hematemesis vs hemoptysis. She denies any GI complaints today. Cardiology has been consulted for ?AF/arrhythmia. Tele reveals SR/ST 110s with PACs, no evidence of AF. Pt denies any prior hx of arrhythmias. She does admit to feeling her heart race but states "it's because they can't get my breathing under control." She appears fairly comfortable on 2L O2 via NC. Pt is typically followed by [facility]. Past History Past Medical History: anemia, COPD, GERD, heart failure, hypertension, renal failure Past Surgical History: denies: valve replacement, CABG, PTCA Social history: other (homelessness). denies: smoking, alcohol abuse Family history: CAD Medications and Allergies Allergies Allergy/AdvReac Type Severity Reaction Status Date / Time tetracycline Allergy Unknown Verified 11/11/21 07:36 Home Medications Medication Instructions Recorded Confirmed Last Taken Type ALPRAZolam [Xanax TAB] 1 mg PO TID PRN 11/12/21 11/12/21 Unknown History Cyclobenzaprine HCl [Flexeril 5 MG 5 mg PO TID PRN 11/12/21 11/12/21 Unknown History TAB] Dicyclomine [Bentyl] 20 mg PO TID PRN 11/12/21 11/12/21 Unknown History Fluticasone [Flonase] 1 spray NS QDAY 11/12/21 11/12/21 Unknown History Furosemide [Lasix] 40 mg PO QDAY 11/12/21 11/12/21 Unknown History Gabapentin [Neurontin] 600 mg PO QDAY 11/12/21 11/12/21 Unknown History HYDROcodone/APAP 7.5-325 [Martha 7.5 - 325 mg PO TID PRN 11/12/21 11/12/21 Unknown History 7.5-325 mg TAB] Ondansetron [Zofran Odt] 4 mg PO QDAY PRN 11/12/21 11/12/21 Unknown History PARoxetine [Paxil] 20 mg PO QDAY 11/12/21 11/12/21 Unknown History Pantoprazole [Protonix] 40 mg PO QDAY 11/12/21 11/12/21 Unknown History QUEtiapine [SEROquel] 100 mg PO QHS 11/12/21 11/12/21 Unknown History amLODIPine [Norvasc] 5 mg PO DAILY 11/12/21 11/12/21 Unknown History rOPINIRole (NF) [Requip (Nf)] 0.5 mg PO QHS 11/12/21 11/12/21 Unknown History Active Meds: Active Medications Acetaminophen (Acetaminophen 325 Mg Tab) 650 mg PO Q6H PRN PRN Reason: Pain, Mild (1-3) Last Admin: 11/12/21 18:07 Dose: 650 mg Acetaminophen (Acetaminophen 650 Mg Rect Supp) 650 mg MD Q6H PRN PRN Reason: Pain MILD(1-3)/Fever >100.5/MAYA Albuterol (Albuterol 2.5 Mg/3 Ml Nebu) 2.5 mg IH Q3HRT PRN PRN Reason: Shortness Of Breath Amlodipine Besylate (Amlodipine 5 Mg Tab) 5 mg PO DAILY OLRNE Dicyclomine HCl (Dicyclomine 20 Mg Tab) 20 mg PO TID PRN PRN Reason: BOWEL Fluticasone Propionate (Fluticasone Propionate Nasal [place] 16 Gm) 50 mcg NS QDAY LORNE Gabapentin (Gabapentin 300 Mg Cap) 600 mg PO QDAY LORNE Heparin Sodium (Porcine) (Heparin 5,000 Unit/1 Ml Vial) 5,000 unit SUB-Q Q12HR LORNE Hydromorphone HCl (Hydromorphone 0.5 Mg/0.5 Ml Inj) 0.25 mg IV Q4H PRN PRN Reason: Pain, Moderate (4-6) Hydromorphone HCl (Hydromorphone 0.5 Mg/0.5 Ml Inj) 0.5 mg IV Q23H PRN PRN Reason: Pain , Severe (7-10) Last Admin: 11/11/21 21:47 Dose: 0.5 mg Ceftriaxone Sodium (Rocephin/Ns 2 Gm/100 Ml) 2 gm in 100 mls @ 200 mls/hr IV Q24H [facility]; Protocol Last Admin: 11/12/21 13:48 Dose: 200 mls/hr Azithromycin (Zithromax/Ns) 500 mg in 250 mls @ 250 mls/hr IV Q24H [facility]; Protocol Last Admin: 11/12/21 13:49 Dose: 250 mls/hr Ondansetron HCl (Ondansetron 4 Mg/2 Ml Inj) 4 mg IV Q8H PRN PRN Reason: Nausea And Vomiting Ondansetron HCl (Ondansetron 4 Mg Odt Tab) 4 mg PO QDAY PRN PRN Reason: Nausea And Vomiting Oxycodone/Acetaminophen (Oxycodone /Acetaminophen 5-325mg Tab) 1 tab PO Q16H PRN PRN Reason: Pain, Moderate (4-6) Pantoprazole Sodium (Pantoprazole 40 Mg Inj) 40 mg IV QDAY [facility] Paroxetine HCl (Paroxetine 20 Mg Tab) 20 mg PO QDAY [facility] Quetiapine Fumarate (Quetiapine 100 Mg Tab) 100 mg PO QHS [facility] Last Admin: 11/12/21 21:40 Dose: 100 mg Ropinirole HCl (Ropinirole 0.25 Mg Tab) 0.5 mg PO QHS [facility] Last Admin: 11/12/21 21:40 Dose: 0.5 mg Sodium Chloride (Sodium Chloride 0.9% 10 Ml Flush Syringe) 10 ml IV BID [facility] Last Admin: 11/12/21 21:40 Dose: 10 ml Sodium Chloride (Sodium Chloride 0.9% 10 Ml Flush Syringe) 10 ml IV PRN PRN PRN Reason: LINE FLUSH Review of Systems Constitutional: weakness, no chills Ears, nose, mouth and throat: no nasal congestion, no sore throat Cardiovascular: orthopnea, rapid/irregular heart beat, shortness of breath, no chest pain, no palpitations, no lightheadedness Respiratory: shortness of breath, no cough Gastrointestinal: no abdominal pain, no nausea Genitourinary Female: no dysuria Musculoskeletal: no myalgias Integumentary: no rash, no wounds Neurological: no numbness, no tingling, no seizures, no syncope, no headaches Endocrine: no polydipsia, no polyuria Hematologic/Lymphatic: no easy bruising, no easy bleeding Allergic/Immunologic: no anaphylaxis Physical Examination Vital Signs Temp Pulse Resp BP Pulse Ox 97.9 F 92 H 16 132/76 97 11/11/21 07:30 11/11/21 07:30 11/11/21 07:30 11/11/21 07:30 11/11/21 07:30 General appearance: no acute distress HEENT: Positive: EOMI, Normocephaly Neck: Negative: JVD/HJR Cardiac: Positive: Regular Rhythm, Diastolic Murmur (2/6), Tachycardia Lungs: Positive: Decreased Breath Sounds Neuro: Positive: Grossly Intact Abdomen: Positive: Soft Skin: Negative: Rash Musculoskeletal: No Pain Extremities: Present: edema (trace), warm Results 11/13/21 04:45 11/13/21 04:45 Cardiac Enzymes 11/13/21 Range/Units 04:45 AST 113 H (5-40) units/L CBC 11/12/21 11/13/21 Range/Units 15:42 04:45 WBC 12.1 H (4.5-11.0) K/mm3 RBC 2.89 L (3.65-5.03) M/mm3 Hgb 8.1 L 8.0 L (10.1-14.3) gm/dl Hct 25.4 L 25.2 L (30.3-42.9) % Plt Count 188 (140-440) K/mm3 Comprehensive Metabolic Panel 11/13/21 Range/Units 04:45 Sodium 137 (137-145) mmol/L Potassium 4.1 (3.6-5.0) mmol/L Chloride 100.3 (98-107) mmol/L Carbon Dioxide 29 (22-30) mmol/L BUN 16 (7-17) mg/dL Creatinine 0.8 (0.6-1.2) mg/dL Glucose 98 (65-100) mg/dL Calcium 8.5 (8.4-10.2) mg/dL AST 113 H (5-40) units/L ALT 105 H (7-56) units/L Alkaline Phosphatase 78 (35-129) units/L Total Protein 5.9 L (6.3-8.2) g/dL Albumin 3.0 L (3.9-5) g/dL - Imaging and Cardiology Echo: report reviewed EKG: report reviewed, image reviewed EKG interpretations - Telemetry EKG Rhythm: Sinus Tachycardia - EKG Sinus rhythms and dysrhythmias: sinus tachycardia Assessment and Plan Assessment: Sepsis PNA AUNG (resolved) Elevated LFTs Acute on Chronic Anemia Hematemasis vs Hemoptysis (?coughing up blood per chart review) Esophagitis H/o PUD H/o Diverticulosis Chronic HFpEF Non-Rheumatic Mitral Stenosis COPD (uses 2L O2 at night) Obesity / ?TORITO HTN Parkinson's Disease Echo 04/2021 The left ventricular systolic function is normal with an ejection fraction of 56-60%. Unable to assess left ventricular diastolic function due to inadequate tissue doppler or atrial arrhythmia. The left ventricular cavity, indexed to body surface area and gender is normal. There is moderate concentric left ventricular hypertrophy present. The right ventricular systolic function is normal. The right ventricular cavity size is normal. There is [id number] mitral valvestenosis. The inferior vena cava demonstrates an intermediate elevated central venous pressure, 8mmHg, (<2.1 cm and <50% decrease). Plan: ST 110s with PACs on tele. No evidence of AF or other arrhythmias. Suspect physiologic tachycardia in the setting of sepsis and anemia. Outpatient cardiac regimen: Lasix 20mg daily, Amlodipine 5mg daily. Currently stable cardiac status. Pt is followed by Cardiology Dr. Us @ [facility] for HFpEF and mitral stenosis. No hx of AF or other arrhythmias; however, compliance is an issue due to social constraints. [facility] records reviewed. Pt was hospitalized 10/30/21 - 11/04/21 for sepsis thought to be secondary to bilateral PNA visualized on CXR 10/30. She was treated with IV Vanc & Zosyn. MRSA positive via PCR during that admission. CT abd/pelvis 10/30 revealed no acute findings. Colonic diverticulosis and small hiatal hernia noted. Patchy groundglass opacities seen in bibasilar lungs on those films, likely PNA or aspiration. Last EGD on file 08/09/21: LA grade B esophagitis, large hiatal hernia, otherwise normal stomach and examined part of duodenum. Pt seen in conjunction with Dr. Jara, who agrees with the assessment and plan of care. - Patient Problems (1) Sepsis Current Visit: Yes Status: Acute (2) Pneumonia Current Visit: Yes Status: Acute (3) Acute on chronic anemia Current Visit: Yes Status: Acute (4) Esophagitis Current Visit: Yes Status: Chronic (5) (HFpEF) heart failure with preserved ejection fraction Current Visit: Yes Status: Chronic (6) Mitral stenosis Current Visit: Yes Status: Chronic Qualifiers: Cardiac valve disease etiology: nonrheumatic Qualified Code(s): I34.2 - Nonrheumatic mitral (valve) stenosis (7) COPD (chronic obstructive pulmonary disease) Current Visit: Yes Status: Chronic (8) Parkinson's disease Current Visit: Yes Status: Chronic
[2021-11-13] MEDS: FLUTICASONE PROPIONATE NASAL SPRAY 16 GM NS SCH (09:40)
[2021-11-13] MEDS: amLODIPine 5 MG TAB PO SCH (09:41)
[2021-11-13] MEDS: GABAPENTIN 300 MG CAP PO SCH (09:41)
[2021-11-13] MEDS: PARoxetine 20 MG TAB PO SCH (09:41)
[2021-11-13] MEDS: PANTOPRAZOLE 40 MG INJ IV SCH (09:41)
[2021-11-13] MEDS ORDERED: FUROSEMIDE 40 MG TAB PO SCH (10:00)
--- NOTE | 2021-11-13 11:31 | Progress Note ---
Assessment and Plan Assessment and plan: 76 YO Female Personal [facility] Resident with Vascular Dementia, Cerebral Atherosclerosis, HTN, GERD, Obesity, COPD, Asthma presents ED for evaluation. Patient is confused and lethargic with diminished cognition at the time my evaluation and is unable to provide history. Patient history provided by EMS staff, ED staff, as well as personal m[facility] staff. As per staff the patient was in her usual state of health overnight and was found by a roommate today to be confused and coughing up blood. EMS was notified and upon arrival the patient was found to be in distress and subsequently transported to [facility] for further care and evaluation of the aforementioned symptoms. The patient was seen and evaluated in the emergency department. All lab and imaging studies reviewed. Patient found to have pneumonia complicated by sepsis, toxic metabolic encephalopathy, lactic acidosis, hyponatremia, acute kidney injury, as well as elevated liver function test. Patient also found to have evidence of upper GI bleed. GI team consulted in ED. Patient admitted to IMCU due to risk of worsening symptoms and for medical stabilization. Patient initiated on sepsis protocol as well as pneumonia protocol. No prior admission for review. No medication listed at time of admission for reconciliation. Advanced care planning conducted in ED. Patient remains confused and lethargic but has a positive gag reflex and is able to protect her airway without difficulty at this time. 11/12: Patient seen and evaluated. No abdominal pain noted no further hematemesis appreciated. CT abdomen pelvis concerning for suspected multifocal right pneumonia. Considering sepsis picture initially on admission will also rule out COVID. ID consulted. I will repeat H&H this generalized decrease and CBC numbers noted this could be due to dilution from fluid administered. Unfortunately I do not know what her baseline is. She does have what appears to be elevated liver enzymes. We will obtain an ultrasound of the abdomen when able probably in AM. Will await GI evaluation I will also check hepatitis profile. I have requested records from the facility where she came from and plan discussed with the patient and also with nursing staff. 11/13: Patient seen and examined, no fever, no distress, breathing is improved, discussed with roll finisher no clear evidence of GI bleeding hemoglobin has remained stable review of records from outside facility showed a hemoglobin of 9.1. Patient does not verbalize any further nausea or vomiting it appears that she has had this same episode while at the other facility. This morning her heart rate is in the low 100s cardiology consulted consider to be PACs. Wh ite count and renal function is improved. We will transfer to telemetry. We will discontinue IV fluid hydration as patient still has mild wheezing. And if continue to improve will anticipate discharge in a.m. (1) Sepsis Status: Acute Qualifiers: Acute renal failure type: with acute tubular necrosis Plan to address problem: Sepsis protocol: Chest x-ray, CBC, BMP, urinalysis, IV fluid resuscitation therapy, IV antibiotic therapy, maintain mean arterial pressure greater than equal to 65, blood culture, monitor fluid balance, monitor urine output every shift (2) Gastrointestinal hemorrhage Status: Acute Plan to address problem: CT scan abdomen pelvis, stool for occult blood, GI team consulted. Patient hemoglobin stable at this time. Will consider packed red blood cell transfusion if patient drops hemoglobin greater than 2 g during 24-hour period. (3) Pneumonia Status: Acute Plan to address problem: Pneumonia protocol: Chest x-ray, CBC, CMP, IV antibiotic therapy, supplemental oxygen, pulse oximetry. (4) AUNG (acute kidney injury) with vasomotor nephropathy Status: Acute Plan to address problem: IV fluid resuscitation therapy, BMP, repeat BMP in a.m. to monitor serum creatinine as well as GFR, monitor fluid balance, (5) Obesity Status: Acute Plan to address problem: Balanced diet, increase physical activity discharge. Outpatient pulmonary follow-up for sleep study. (6) Toxic metabolic encephalopathy Status: Acute Plan to address problem: CT scan head, neuro check, seizure precautions, aspiration precautions, fall pre cautions, treat sepsis. (7) Hyponatremia syndrome Status: Acute Plan to address problem: BMP, IV fluid resuscitation therapy, repeat BMP in a.m. to monitor serum sodium. (8) elevated liver enzymes possible hepatitis (9) DVT prophylaxis Status: Acute Plan to address problem: SCD to bilateral lower extremities while in bed, prophylactic anticoagulation (10) Advance care planning Status: Acute Plan to address problem: Disease education data, care plan discussed, diagnoses discussed, prognosis discussed, patient is full code, +30 minutes. (11) Preventative health care Status: Acute Plan to address problem: Staff counseled regarding home safety precautions, outpatient follow-up with primary care physician for all age and risk factor appropriate screening test. +30 minutes. Hospitalist Physical - Constitutional Vitals: Temp Pulse Resp BP Pulse Ox 99.0 F 110 H 25 H 124/62 96 11/12/21 13:03 11/13/21 09:41 11/13/21 06:31 11/13/21 09:41 11/13/21 06:31 General appearance: Present: no acute distress Results - Labs CBC & Chem 7: 11/13/21 04:45 11/13/21 04:45 Labs: Laboratory Last Values WBC 12.1 K/mm3 (4.5-11.0) H 11/13/21 04:45 RBC 2.89 M/mm3 (3.65-5.03) L 11/13/21 04:45 Hgb 8.0 gm/dl (10.1-14.3) L 11/13/21 04:45 Hct 25.2 % (30.3-42.9) L 11/13/21 04:45 MCV 87 fl (79-97) 11/13/21 04:45 MCH 28 pg (28-32) 11/13/21 04:45 MCHC 32 % (30-34) 11/13/21 04:45 RDW 17.1 % (13.2-15.2) H 11/13/21 04:45 Plt Count 188 K/mm3 (140-440) 11/13/21 04:45 Add Manual Diff Complete 11/12/21 04:54 Total Counted 100 11/12/21 04:54 Seg Neutrophils % Chrome Plater Helper 11/12/21 04:54 Seg Neuts % (Manual) 93.0 % (40.0-70.0) H 11/12/21 04:54 Band Neutrophils % 0 % 11/12/21 04:54 Lymphocytes % (Manual) 7.0 % (13.4-35.0) L 11/12/21 04:54 Reactive Lymphs % (Man) 0 % 11/12/21 04:54 Monocytes % (Manual) 0 % (0.0-7.3) 11/12/21 04:54 Eosinophils % (Manual) 0 % (0.0-4.3) 11/12/21 04:54 Basophils % (Manual) 0 % (0.0-1.8) 11/12/21 04:54 Metamyelocytes % 0 % 11/12/21 04:54 Myelocytes % 0 % 11/12/21 04:54 Promyelocytes % 0 % 11/12/21 04:54 Blast Cells % 0 % 11/12/21 04:54 Nucleated RBC % Not Reportable 11/12/21 04:54 Seg Neutrophils # Man 19.3 K/mm3 (1.8-7.7) H 11/12/21 04:54 Band Neutrophils # 0.0 K/mm3 11/12/21 04:54 Lymphocytes # (Manual) 1.4 K/mm3 (1.2-5.4) 11/12/21 04:54 Abs React Lymphs (Man) 0.0 K/mm3 11/12/21 04:54 Monocytes # (Manual) 0.0 K/mm3 (0.0-0.8) 11/12/21 04:54 Eosinophils # (Manual) 0.0 K/mm3 (0.0-0.4) 11/12/21 04:54 Basophils # (Manual) 0.0 K/mm3 (0.0-0.1) 11/12/21 04:54 Metamyelocytes # 0.0 K/mm3 11/12/21 04:54 Myelocytes # 0.0 K/mm3 11/12/21 04:54 Promyelocytes # 0.0 K/mm3 11/12/21 04:54 Blast Cells # 0.0 K/mm3 11/12/21 04:54 WBC Morphology Not Reportable 11/12/21 04:54 Hypersegmented Neuts Not Reportable 11/12/21 04:54 Hyposegmented Neuts 1+ 11/12/21 04:54 Hypogranular Neuts Not Reportable 11/12/21 04:54 Smudge Cells Not Reportable 11/12/21 04:54 Toxic Granulation Not Reportable 11/12/21 04:54 Toxic Vacuolation Not Reportable 11/12/21 04:54 Dohle Bodies Not Reportable 11/12/21 04:54 Pelger-Huet Anomaly Not Reportable 11/12/21 04:54 Nela Rods Not Reportable 11/12/21 04:54 Platelet Estimate Consistent w auto 11/12/21 04:54 Clumped Platelets Not Reportable 11/12/21 04:54 Plt Clumps, EDTA Not Reportable 11/12/21 04:54 Large Platelets Not Reportable 11/12/21 04:54 Giant Platelets Not Reportable 11/12/21 04:54 Platelet Satelliting Not Reportable 11/12/21 04:54 Plt Morphology Comment Not Reportable 11/12/21 04:54 RBC Morphology Not Reportable 11/12/21 04:54 Dimorphic RBCs Not Reportable 11/12/21 04:54 Polychromasia Not Reportable 11/12/21 04:54 Hypochromasia Not Reportable 11/12/21 04:54 Poikilocytosis Not Reportable 11/12/21 04:54 Anisocytosis Not Reportable 11/12/21 04:54 Microcytosis Not Reportable 11/12/21 04:54 Macrocytosis Not Reportable 11/12/21 04:54 Spherocytes Not Reportable 11/12/21 04:54 Pappenheimer Bodies Not Reportable 11/12/21 04:54 Sickle Cells Not Reportable 11/12/21 04:54 Target Cells Not Reportable 11/12/21 04:54 Tear Drop Cells Not Reportable 11/12/21 04:54 Ovalocytes Few 11/12/21 04:54 Helmet Cells Not Reportable 11/12/21 04:54 Meyer-Beatty Bodies Not Reportable 11/12/21 04:54 [place] Rings Not Reportable 11/12/21 04:54 Suni Cells Not Reportable 11/12/21 04:54 Bite Cells Not Reportable 11/12/21 04:54 Crenated Cell Not Reportable 11/12/21 04:54 Elliptocytes Few 11/12/21 04:54 Acanthocytes (Spur) Not Reportable 11/12/21 04:54 Rouleaux Not Reportable 11/12/21 04:54 Hemoglobin C Crystals Not Reportable 11/12/21 04:54 Schistocytes Not Reportable 11/12/21 04:54 Malaria parasites Not Reportable 11/12/21 04:54 Al Bodies Not Reportable 11/12/21 04:54 Hem Pathologist Commnt No 11/12/21 04:54 PT 15.8 Sec. (12.2-14.9) H 11/11/21 08:18 INR 1.13 (0.87-1.13) 11/11/21 08:18 APTT 32.4 Sec. (24.2-36.6) 11/11/21 08:18 Sodium 137 mmol/L (137-145) 11/13/21 04:45 Potassium 4.1 mmol/L (3.6-5.0) 11/13/21 04:45 Chloride 100.3 mmol/L (98-107) 11/13/21 04:45 Carbon Dioxide 29 mmol/L (22-30) 11/13/21 04:45 Anion Gap 12 mmol/L 11/13/21 04:45 BUN 16 mg/dL (7-17) 11/13/21 04:45 Creatinine 0.8 mg/dL (0.6-1.2) 11/13/21 04:45 Estimated GFR > 60 ml/min 11/13/21 04:45 BUN/Creatinine Ratio 20 % 11/13/21 04:45 Glucose 98 mg/dL (65-100) 11/13/21 04:45 Lactic Acid 0.70 mmol/L (0.7-2.0) 11/12/21 00:12 Calcium 8.5 mg/dL (8.4-10.2) 11/13/21 04:45 Total Bilirubin 0.40 mg/dL (0.1-1.2) 11/13/21 04:45 AST 113 units/L (5-40) H 11/13/21 04:45 ALT 105 units/L (7-56) H 11/13/21 04:45 Alkaline Phosphatase 78 units/L (35-129) 11/13/21 04:45 Total Protein 5.9 g/dL (6.3-8.2) L 11/13/21 04:45 Albumin 3.0 g/dL (3.9-5) L 11/13/21 04:45 Albumin/Globulin Ratio 1.0 % 11/13/21 04:45 Urine Color Yellow (Yellow) 11/11/21 Unknown Urine Turbidity Clear (Clear) 11/11/21 Unknown Urine pH 5.0 (5.0-7.0) 11/11/21 Unknown Ur Specific [place] 1.020 (1.003-1.030) 11/11/21 Unknown Urine Protein 30 mg/dl mg/dL (Negative) 11/11/21 Unknown Urine Glucose (UA) Negative mg/dL (Negative) 11/11/21 Unknown Urine Ketones Negative mg/dL (Negative) 11/11/21 Unknown Urine Blood Negative (Negative) 11/11/21 Unknown Urine Nitrite Negative (Negative) 11/11/21 Unknown Ur Reducing Substances Not Reportable 11/11/21 Unknown Urine Bilirubin Negative (Negative) 11/11/21 Unknown Urine Ictotest Not Reportable 11/11/21 Unknown Urine Urobilinogen < 2.0 mg/dL (<2.0) 11/11/21 Unknown Ur Leukocyte Esterase Negative (Negative) 11/11/21 Unknown Urine WBC (Auto) 1.0 /HPF (0.0-6.0) 11/11/21 Unknown Urine RBC (Auto) 2.0 /HPF (0.0-6.0) 11/11/21 Unknown U Epithel Cells (Auto) 3.0 /HPF (0-13.0) 11/11/21 Unknown Hyaline Casts 2 /LPF 11/11/21 Unknown Urine Mucus Few /HPF 11/11/21 Unknown SARS-CoV-2 (PCR) Negative (Negative) 11/11/21 11:02 Hepatitis A IgM Ab Non-reactive (NonReactive) 11/12/21 15:42 Hep Bs Antigen Non-reactive (Negative) 11/12/21 15:42 Hep B Core IgM Ab Non-reactive (NonReactive) 11/12/21 15:42 Hepatitis C Antibody Non-reactive (NonReactive) 11/12/21 15:42 Blood Type O POSITIVE 11/11/21 12:18 Antibody Screen TNR 11/11/21 12:18 NIKI Antibody Screen Negative 11/11/21 12:18 Microbiology: Microbiology 11/11/21 09:50 Peripheral/Venous Blood Culture - Preliminary NO GROWTH AFTER 48 HOURS [place]/IV: Voiding Method Urinal Active Medications - Current Medications Current Medications: Generic Name Dose Route Start Last Admin Trade Name Freq PRN Reason Stop Dose Admin Acetaminophen 650 mg 11/11/21 12:07 11/12/21 18:07 Acetaminophen 325 Mg Tab PO 650 mg Q6H PRN Administration Pain, Mild (1-3) Acetaminophen 650 mg 11/11/21 12:07 Acetaminophen 650 Mg Rect Supp ID Q6H PRN Pain MILD(1-3)/Fever >100.5/MAYA Albuterol 2.5 mg 11/11/21 12:07 Albuterol 2.5 Mg/3 Ml Nebu IH Q3HRT PRN Shortness Of Breath Amlodipine Besylate 5 mg 11/13/21 10:00 06/26/22 09:41 Amlodipine 5 Mg Tab PO 5 mg DAILY LORNE Administration Dicyclomine HCl 20 mg 11/12/21 20:08 11/13/21 09:41 Dicyclomine 20 Mg Tab PO 20 mg TID PRN Administration BOWEL Fluticasone Propionate 50 mcg 11/13/21 10:00 11/13/21 09:40 Fluticasone Propionate Nasal [place] 16 Gm NS 50 mcg QDAY LORNE Administration Gabapentin 600 mg 11/13/21 10:00 11/13/21 09:41 Gabapentin 300 Mg Cap PO 600 mg QDAY LORNE Administration Heparin Sodium (Porcine) 5,000 unit 11/13/21 14:00 Heparin 5,000 Unit/1 Ml Vial SUB-Q Q12HR [facility] Hydromorphone HCl 0.25 mg 11/11/21 12:07 Hydromorphone 0.5 Mg/0.5 Ml Inj IV Q4H PRN Pain, Moderate (4-6) Hydromorphone HCl 0.5 mg 11/11/21 12:07 11/11/21 21:47 Hydromorphone 0.5 Mg/0.5 Ml Inj IV 0.5 mg Q23H PRN Administration Pain , Severe (7-10) Ceftriaxone Sodium 2 gm in 100 mls @ 200 mls/hr 11/11/21 13:00 11/12/21 13:48 Rocephin/Ns 2 Gm/100 Ml IV 200 mls/hr Q24H [facility] Administration Protocol Azithromycin 500 mg in 250 mls @ 250 mls/hr 11/11/21 13:00 11/12/21 13:49 Zithromax/Ns IV 250 mls/hr Q24H [facility] Administration Protocol Ondansetron HCl 4 mg 11/11/21 12:07 Ondansetron 4 Mg/2 Ml Inj IV Q8H PRN Nausea And Vomiting Ondansetron HCl 4 mg 11/12/21 20:08 Ondansetron 4 Mg Odt Tab PO QDAY PRN Nausea And Vomiting Oxycodone/Acetaminophen 1 tab 11/11/21 12:07 Oxycodone /Acetaminophen 5-325mg Tab PO Q16H PRN Pain, Moderate (4-6) Pantoprazole Sodium 40 mg 11/13/21 10:00 11/13/21 09:41 Pantoprazole 40 Mg Inj IV 40 mg QDAY LORNE Administration Paroxetine HCl 20 mg 11/13/21 10:00 11/13/21 09:41 Paroxetine 20 Mg Tab PO 20 mg QDAY LORNE Administration Quetiapine Fumarate 100 mg 11/12/21 22:00 11/12/21 21:40 Quetiapine 100 Mg Tab PO 100 mg QHS LORNE Administration Ropinirole HCl 0.5 mg 11/12/21 22:00 11/12/21 21:40 Ropinirole 0.25 Mg Tab PO 0.5 mg QHS LORNE Administration Sodium Chloride 10 ml 11/11/21 22:00 11/13/21 09:42 Sodium Chloride 0.9% 10 Ml Flush Syringe IV 10 ml BID LORNE Administration Sodium Chloride 10 ml 11/11/21 12:07 Sodium Chloride 0.9% 10 Ml Flush Syringe IV PRN PRN LINE FLUSH
--- NOTE | 2021-11-13 13:22 | Progress Note ---
Assessment and Plan 1. Anemiapatient did drop hemoglobin from 11.1 on admission, but is now stable at approximately 8.1 after IV hydration. However, there is no evidence of vianey GI bleeding as rectal exam today showed light brown stool. Baseline hemoglobin was approximately 9 on November 03. Monitor hemoglobin and transfuse as needed -Empiric daily PPI No further plans for inpatient GI evaluation. She should follow-up as an outpatient and we will consider endoscopic evaluation at that point in time. We will sign off. Please call as needed. Subjective Date of service: 11/13/21 Interval history: Patient denies GI complaints. Is tangential and readily distracted. Objective - Constitutional Vitals: Vital Signs - 12hr 11/13/21 11/13/21 11/13/21 01:31 02:00 02:31 Pulse Rate 79 81 83 Pulse Rate [ From Monitor] Respiratory 17 16 16 Rate Blood Pressure 104/46 111/46 111/46 O2 Sat by Pulse 100 98 100 Oximetry 11/13/21 11/13/21 11/13/21 03:01 03:31 04:00 Pulse Rate 89 90 96 H Pulse Rate [ 96 H From Monitor] Respiratory 18 20 22 Rate Blood Pressure 117/52 117/52 128/58 O2 Sat by Pulse 97 99 Oximetry 11/13/21 11/13/21 11/13/21 04:31 05:01 05:31 Pulse Rate 98 H 103 H 103 H Pulse Rate [ From Monitor] Respiratory 20 23 15 Rate Blood Pressure 128/58 120/52 120/52 O2 Sat by Pulse 99 96 96 Oximetry 11/13/21 11/13/21 11/13/21 06:01 06:31 07:00 Pulse Rate 104 H 103 H 108 H Pulse Rate [ From Monitor] Respiratory 26 H 25 H 26 H Rate Blood Pressure 119/54 119/54 132/61 O2 Sat by Pulse 96 96 94 Oximetry 11/13/21 11/13/21 11/13/21 07:31 08:00 08:31 Pulse Rate 105 H 112 H 111 H Pulse Rate [ 85 From Monitor] Respiratory 22 18 20 Rate Blood Pressure 132/61 117/52 132/61 O2 Sat by Pulse 97 97 97 Oximetry 11/13/21 11/13/21 11/13/21 09:01 09:31 09:41 Pulse Rate 111 H 118 H 110 H Pulse Rate [ From Monitor] Respiratory 15 20 Rate Blood Pressure 132/61 132/61 124/62 O2 Sat by Pulse 97 97 Oximetry 11/13/21 11/13/21 11/13/21 10:00 10:30 11:00 Pulse Rate 110 H 121 H 109 H Pulse Rate [ From Monitor] Respiratory 30 H 23 29 H Rate Blood Pressure 131/57 131/57 O2 Sat by Pulse 96 98 96 Oximetry 11/13/21 11/13/21 12:00 12:03 Pulse Rate Pulse Rate [ 90 From Monitor] Respiratory 22 Rate Blood Pressure 106/40 O2 Sat by Pulse 98 Oximetry General appearance: Present: no acute distress - EENT Eyes: PERRL, EOM intact ENT: hearing intact - Respiratory Respiratory effort: labored - Gastrointestinal General gastrointestinal: Present: soft, non-tender - Labs CBC & Chem 7: 11/13/21 04:45 11/13/21 04:45 Labs: Abnormal lab results 11/12/21 11/13/21 11/13/21 Range/Units 15:42 04:45 04:45 WBC 12.1 H (4.5-11.0) K/mm3 RBC 2.89 L (3.65-5.03) M/mm3 Hgb 8.1 L 8.0 L (10.1-14.3) gm/dl Hct 25.4 L 25.2 L (30.3-42.9) % RDW 17.1 H (13.2-15.2) % AST 113 H (5-40) units/L ALT 105 H (7-56) units/L Total Protein 5.9 L (6.3-8.2) g/dL Albumin 3.0 L (3.9-5) g/dL Medications & Allergies - Medications Allergies/Adverse Reactions: Allergies tetracycline Allergy (Verified 11/11/21 07:36) Unknown Home Medications: Home Medications Medication Instructions Recorded Confirmed Last Taken Type ALPRAZolam [Xanax TAB] 1 mg PO TID PRN 11/12/21 11/12/21 Unknown History Cyclobenzaprine HCl [Flexeril 5 MG 5 mg PO TID PRN 11/12/21 11/12/21 Unknown Hi story TAB] Dicyclomine [Bentyl] 20 mg PO TID PRN 11/12/21 11/12/21 Unknown History Fluticasone [Flonase] 1 spray NS QDAY 11/12/21 11/12/21 Unknown History Furosemide [Lasix] 40 mg PO QDAY 11/12/21 11/12/21 Unknown History Gabapentin [Neurontin] 600 mg PO QDAY 11/12/21 11/12/21 Unknown History HYDROcodone/APAP 7.5-325 [[place] 7.5 - 325 mg PO TID PRN 11/12/21 11/12/21 Unknown History 7.5-325 mg TAB] Ondansetron [Zofran Odt] 4 mg PO QDAY PRN 11/12/21 11/12/21 Unknown History PARoxetine [Paxil] 20 mg PO QDAY 11/12/21 11/12/21 Unknown History Pantoprazole [Protonix] 40 mg PO QDAY 11/12/21 11/12/21 Unknown History QUEtiapine [SEROquel] 100 mg PO QHS 11/12/21 11/12/21 Unknown History amLODIPine [Norvasc] 5 mg PO DAILY 11/12/21 11/12/21 Unknown History rOPINIRole (NF) [Requip (Nf)] 0.5 mg PO QHS 11/12/21 11/12/21 Unknown History Active Medications: Generic Name Dose Route Start Last Admin Trade Name Freq PRN Reason Stop Dose Admin Acetaminophen 650 mg 11/11/21 12:07 11/12/21 18:07 Acetaminophen 325 Mg Tab PO 650 mg Q6H PRN Administration Pain, Mild (1-3) Acetaminophen 650 mg 11/11/21 12:07 Acetaminophen 650 Mg Rect Supp [place] Q6H PRN Pain MILD(1-3)/Fever >100.5/MAYA Albuterol 2.5 mg 11/11/21 12:07 Albuterol 2.5 Mg/3 Ml Nebu IH Q3HRT PRN Shortness Of Breath Amlodipine Besylate 5 mg 11/13/21 10:00 11/13/21 09:41 Amlodipine 5 Mg Tab PO 5 mg DAILY LORNE Administration Dicyclomine HCl 20 mg 11/12/21 20:08 11/13/21 09:41 Dicyclomine 20 Mg Tab PO 20 mg TID PRN Administration BOWEL Fluticasone Propionate 50 mcg 11/13/21 10:00 11/13/21 09:40 Fluticasone Propionate Nasal [place] 16 Gm NS 50 mcg QDAY LORNE Administration Gabapentin 600 mg 11/13/21 10:00 11/13/21 09:41 Gabapentin 300 Mg Cap PO 600 mg QDAY LORNE Administration Heparin Sodium (Porcine) 5,000 unit 11/13/21 14:00 Heparin 5,000 Unit/1 Ml Vial SUB-Q Q12HR LORNE Hydromorphone HCl 0.25 mg 11/11/21 12:07 Hydromorphone 0.5 Mg/0.5 Ml Inj IV Q4H PRN Pain, Moderate (4-6) Hydromorphone HCl 0.5 mg 11/11/21 12:07 11/11/21 21:47 Hydromorphone 0.5 Mg/0.5 Ml Inj IV 0.5 mg Q23H PRN Administration Pain , Severe (7-10) Ceftriaxone Sodium 2 gm in 100 mls @ 200 mls/hr 11/11/21 13:00 11/12/21 13:48 Rocephin/Ns 2 Gm/100 Ml IV 200 mls/hr Q24H LORNE Administration Protocol Azithromycin 500 mg in 250 mls @ 250 mls/hr 11/11/21 13:00 11/12/21 13:49 Zithromax/Ns IV 250 mls/hr Q24H LORNE Administration Protocol Ondansetron HCl 4 mg 11/11/21 12:07 Ondansetron 4 Mg/2 Ml Inj IV Q8H PRN Nausea And Vomiting Ondansetron HCl 4 mg 11/12/21 20:08 Ondansetron 4 Mg Odt Tab PO QDAY PRN Nausea And Vomiting Oxycodone/Acetaminophen 1 tab 11/11/21 12:07 Oxycodone /Acetaminophen 5-325mg Tab PO Q16H PRN Pain, Moderate (4-6) Pantoprazole Sodium 40 mg 11/13/21 10:00 11/13/21 09:41 Pantoprazole 40 Mg Inj IV 40 mg QDAY [facility]NE Administration Paroxetine HCl 20 mg 11/13/21 10:00 11/13/21 09:41 Paroxetine 20 Mg Tab PO 20 mg QDAY L[facility]NE Administration Quetiapine Fumarate 100 mg 11/12/21 22:00 11/12/21 21:40 Quetiapine 100 Mg Tab PO 100 mg QHS LORNE Administration Ropinirole HCl 0.5 mg 11/12/21 22:00 11/12/21 21:40 Ropinirole 0.25 Mg Tab PO 0.5 mg QHS L[facility]NE Administration Sodium Chloride 10 ml 11/11/21 22:00 11/13/21 09:42 Sodium Chloride 0.9% 10 Ml Flush Syringe IV 10 ml BID [facility]ORNE Administration Sodium Chloride 10 ml 11/11/21 12:07 Sodium Chloride 0.9% 10 Ml Flush Syringe IV PRN PRN LINE FLUSH
[2021-11-13] MEDS: AZITHROMYCIN/NS 500 MG/250 ML 500 MG/250 ML BAG IV SCH (16:05)
[2021-11-13] MEDS: cefTRIAXone/NS 2 GM/100 ML 2 GM/100 ML BAG IV SCH (16:05)
[2021-11-13] MEDS: HEPARIN 5,000 UNIT/1 ML VIAL SUB-Q SCH ×2 (16:05→23:53)
[2021-11-13] MEDS: ACETAMINOPHEN 325 MG TAB PO PRN (20:19)
[2021-11-13] MEDS: ALBUTEROL 2.5 MG/3 ML NEBU IH PRN (21:17)
[2021-11-13] MEDS: rOPINIRole 0.25 MG TAB PO SCH (23:30)
[2021-11-13] MEDS: QUEtiapine 100 MG TAB PO SCH (23:30)
[2021-11-14 05:06] LABS: Hemoglobin 8.6 gm/dl (10.1-14.3); Mean Corpuscular HGB Conc 32 % (30-34); Mean Corpuscular Volume 87 fl (79-97); Platelet Count 213 K/mm3 (140-440); Red Blood Count 3.12 M/mm3 (3.65-5.03); Red Cell Distribution Width 16.6 % (13.2-15.2)
[2021-11-14 05:25] LABS: Alanine Aminotransferase 79 units/L (7-56); Blood Urea Nitrogen 8 mg/dL (7-17); Calcium 8.5 mg/dL (8.4-10.2); Hemolysis Index 4
[2021-11-14 05:26] LABS: BUN/Creatinine Ratio 13
[2021-11-14] MEDS: HEPARIN 5,000 UNIT/1 ML VIAL SUB-Q SCH ×2 (05:35→18:26)
--- NOTE | 2021-11-14 08:21 | Discharge Summary ---
Providers - Providers Date of Admission: 11/11/21 12:07 Attending physician: PAVAN QURESHI MD 11/11/21 12:25 Consult to Physician [CONS] Routine Comment: Consulting Provider: IRENE POPE Physician Instructions: Reason For Exam: upper gi bleed 11/12/21 09:09 Consult to Physician [CONS] Routine Comment: Consulting Provider: MARIANO CELAYA Physician Instructions: Reason For Exam: sepsis 11/12/21 09:59 Consult to Mental Health [CONS] Routine Reason For Exam: psychosis 11/13/21 08:45 Consult to Physician [CONS] Routine Comment: Consulting Provider: ARIAS SUMMERS Physician Instructions: Reason For Exam: arrythemia Primary care physician: BLANK DRILLER Hospitalization Reason for admission: Hematemesis Condition: Serious Hospital course: 76 YO Female Personal Senior Living Resident with Vascular Dementia, Cerebral Atherosclerosis, HTN, GERD, Obesity, COPD, Asthma presents ED for evaluation. Patient is confused and lethargic with diminished cognition at the time my evaluation and is unable to provide history. Patient history provided by EMS staff, ED staff, as well as personal group home staff. As per staff the patient was in her usual state of health overnight and was found by a roommate today to be confused and coughing up blood. EMS was notified and upon arrival the patient was found to be in distress and subsequently transported to [facility] for further care and evaluation of the aforementioned symptoms. The patient was seen and evaluated in the emergency department. All lab and imaging studies reviewed. Patient found to have pneumonia complicated by sepsis, toxic metabolic encephalopathy, lactic acidosis, hyponatremia, acute kidney injury, as well as elevated liver function test. Patient also found to have evidence of upper GI bleed. GI team consulted in ED. Patient admitted to [facility] due to risk of worsening symptoms and for medical stabilization. Patient initiated on sepsis protocol as well as pneumonia protocol. No prior admission for review. No medication listed at time of admission for reconciliation. Advanced care planning conducted in ED. Patient remains confused and lethargic but has a positive gag reflex and is able to protect her airway without difficulty at this time. 11/12: Patient seen and evaluated. No abdominal pain noted no further hematemesis appreciated. CT abdomen pelvis concerning for suspected multifocal right pneumonia. Considering sepsis picture initially on admission will also rule out COVID. ID consulted. I will repeat H&H this generalized decrease and CBC numbers noted this could be due to dilution from fluid administered. Unfortunately I do not know what her baseline is. She does have what appears to be elevated liver enzymes. We will obtain an ultrasound of the abdomen when able probably in AM. Will await GI evaluation I will also check hepatitis profile. I have requested records from the facility where she came from and plan discussed with the patient and also with nursing staff. 11/13: Patient seen and examined, no fever, no distress, breathing is improved, discussed with low pressure boiler operator no clear evidence of GI bleeding hemoglobin has remained stable review of records from outside facility showed a hemoglobin of 9.1. Patient does not verbalize any further nausea or vomiting it appears that she has had this same episode while at the other facility. This morning her heart rate is in the low 100s cardiology consulted consider to be PACs. White count and renal function is improved. We will transfer to telemetry. We will discontinue IV fluid hydration as patient still has mild wheezing. And if continue to improve will anticipate discharge in a.m. 11/14: Patient seen and examined today clinically stable no new complaints. Patient did have some tachycardia which is believed to have been due to underlying dehydration but has been improving. Elevated liver enzymes has also improved as well as hyponatremia. Evaluation done by the GI physician did not reveal any evidence of GI bleed at this time. The noted hematemesis may have been short-lived and continuous monitoring outpatient and strongly recommended. She does have chronic hypoxia for which she is on home O2 at 2 L. She states that this is secondary to underlying history of COPD Throughout the stay patient was advised of findings and carried along with the treatment protocol. Unfortunately I do not have any family contact information to update. (1) Sepsis secondary to presumed gram negative bacteria (2) Gastrointestinal hemorrhage- self resolved (3) Pneumonia (4) AUNG (acute kidney injury) with vasomotor nephropathy-resolved (5) Obesity (6) Toxic metabolic encephalopathy- resolved (7) Hyponatremia syndrome (8) stable COPD without exacerbation with chronic hypoxemic on home O2 2 L (9)Transamitiis Disposition: 01 HOME / SELF CARE / HOMELESS Final Discharge Diagnosis (Prints w/discharge instructions): (1) Sepsis secondary to presumed gram negative bacteria. (2) Gastrointestinal hemorrhage- self resolved. (3) Pneumonia. (4) AUNG (acute kidney injury) with vasomotor nephropathy-resolved. (5) Obesity. (6) Toxic metabolic encephalopathy- resolved. (7) Hyponatremia syndrome. (8) Transamitiis Core Measure Documentation - Palliative Care Palliative Care/ Comfort Measures: Not Applicable - Core Measures Any of the following diagnoses?: none Exam - Physical Exam Narrative exam: VITAL SIGNS: Reviewed. GENERAL: The patient appears normally developed, obese vital signs as documented. HEAD: No signs of head trauma. EYES: Pupils are equal. Extraocular motions intact. EARS: Hearing grossly intact. MOUTH: Oropharynx is normal. NECK: No adenopathy, no JVD. CHEST: Chest with clear breath sounds bilaterally. No wheezes, rales, or rhonchi. CARDIAC: Regular rate and rhythm. S1 and S2, without murmurs, gallops, or rubs. VASCULAR: No Edema. Peripheral pulses normal and equal in all extremities. ABDOMEN: Soft, non tender and non distended. No rebound or guarding, and no masses palpated. Bowel Sounds normal. MUSCULOSKELETAL: Good range of motion of all major joints. Extremities without clubbing, cyanosis or edema. NEUROLOGIC EXAM: Alert and oriented x 3 No focal sensory or strength deficits. Speech normal. Follows commands. PSYCHIATRIC: Mood normal. SKIN: detail exam as documented in skin assessment - Constitutional Vitals: Temp Pulse Resp BP Pulse Ox 98.4 F 98 H 20 155/74 100 11/14/21 04:12 11/14/21 04:12 11/14/21 04:12 11/14/21 04:12 11/14/21 04:12 Plan Activity: advance as tolerated, fall precautions Diet: low fat Special Instructions: record daily weights, record daily BP diary, record blood sugar diary Care Plan Goals: Please follow-up with primary vice president network development to reevaluate need for continued Lasix. Outpatient follow-up with GI to evaluate for age-appropriate screening test Follow up with: MARVIN ERNANDEZ MD [Primary Care Provider] - 7 Days MAREK MURGUIA MD [Referring] - 7 Days GIO CRANDALL MD [Staff Physician] - 7 Days Forms: Accompanied Note Prescriptions: Furosemide [Lasix] 20 mg PO QDAY #10 tablet levoFLOXacin [Levaquin TAB] 500 mg PO QDAY #5 tablet HYDROcodone/APAP 7.5-325 [[place] 7.5-325 mg TAB] 7.5 - 325 mg PO TID PRN #12 tab PRN Reason: Pain , Severe (7-10) Pantoprazole [Protonix TAB] 40 mg PO QDAY #30 tab Ondansetron [Zofran ODT TAB] 4 mg PO QDAY PRN #30 tab PRN Reason: Nausea And Vomiting
[2021-11-14] MEDS: ALBUTEROL 2.5 MG/3 ML NEBU IH PRN (08:39)
[2021-11-14] MEDS: amLODIPine 5 MG TAB PO SCH (09:51)
[2021-11-14] MEDS: PANTOPRAZOLE 40 MG INJ IV SCH (09:51)
[2021-11-14] MEDS: GABAPENTIN 300 MG CAP PO SCH (09:51)
[2021-11-14] MEDS: FLUTICASONE PROPIONATE NASAL SPRAY 16 GM NS SCH (09:52)
[2021-11-14] MEDS: PARoxetine 20 MG TAB PO SCH (09:57)
--- NOTE | 2021-11-14 10:45 | Electrocardiograph Report ---
[facility] Test Date: 2021-11-13 Test Time: 08:01:33 Pat Name: SHIVA DENG Department: Room: A454 Gender: F Eyeglass Fitter: SHAVON : 1945 Requested By: PAVAN QURESHI Order Number: [id number] Reading MD: Hanane Bustos Measurements Intervals [place] Rate: 125 P: 46 IA: 143 QRS: -7 QRSD: 93 T: 71 QT: 312 QTc: 423 Interpretive Statements Multifocal atrial tachycardia Compared to ECG 11/11/2021 11:22:19 Multifocal atrial tachycardia has replaced sinus rhythm Electronically Signed On 11-14-2021 10:45:03 EDT by Hanane Bustos
[2021-11-14] MEDS: cefTRIAXone/NS 2 GM/100 ML 2 GM/100 ML BAG IV SCH (12:11)
[2021-11-14] MEDS: AZITHROMYCIN/NS 500 MG/250 ML 500 MG/250 ML BAG IV SCH (12:11)
[2021-11-14] MEDS: ACETAMINOPHEN 325 MG TAB PO PRN (14:18)
--- NOTE | 2021-11-14 18:14 | Consultation ---
History of Present Illness - Reason for Consult Consult date: 11/14/21 - History of Present Illness 76-year-old female past medical history of vascular dementia, HTN, GERD, COPD, asthma presented to hospital and altered mental status. She was found to have pneumonia on admission. Afebrile, T-max 100 degrees, white count 20.7 on admission, now 9.9. COVID- negative. eGFR decreased on admission, now normal. Blood cultures no growth so far. Currently on ceftriaxone and azithromycin. Imaging personally reviewed: CT abdomen pelvis: Multifocal right pneumonia Review of Systems: Bold if positive, otherwise negative General: fevers, chills, rigors HEENT: visual disturbance, diplopia, eye pain Respiratory: cough, sputum, hemoptysis, shortness of breath Cardiovascular: chest pain, syncope Gastrointestinal: nausea, vomiting, diarrhea, abdominal pain Genitourinary: dysuria, hematuria, flank pain Musculoskeletal: neck pain, back pain, joint pain, edema Neurologic: headaches, seizures Hematologic: easy bruising or bleeding Endocrine: night sweats, acute weight loss Skin: rash, jaundice, redness Psychiatric: suicidal, homicidal ideation Past History Past Medical History: anemia, COPD, GERD, heart failure, hypertension, renal failure Past Surgical History: denies: valve replacement, CABG, PTCA Social history: other (homelessness). denies: smoking, alcohol abuse Family history: CAD Medications and Allergies Allergies Allergy/AdvReac Type Severity Reaction Status Date / Time tetracycline Allergy Unknown Verified 11/11/21 07:36 Home Medications Medication Instructions Recorded Confirmed Last Taken Type Dicyclomine [Bentyl] 20 mg PO TID PRN 11/12/21 11/12/21 Unknown History Fluticasone [Flonase] 1 spray NS QDAY 11/12/21 11/12/21 Unknown History Gabapentin [Neurontin] 600 mg PO QDAY 11/12/21 11/12/21 Unknown History PARoxetine [Paxil] 20 mg PO QDAY 11/12/21 11/12/21 Unknown History QUEtiapine [SEROquel] 100 mg PO QHS 11/12/21 11/12/21 Unknown History amLODIPine 5 mg PO DAILY 11/12/21 11/12/21 Unknown History rOPINIRole (NF) [Requip (Nf)] 0.5 mg PO QHS 11/12/21 11/12/21 Unknown History Furosemide [Lasix] 20 mg PO QDAY #10 tablet 11/14/21 Unknown Rx HYDROcodone/APAP 7.5-325 [[place] 7.5 - 325 mg PO TID PRN #12 tab 11/14/21 Unknown Rx 7.5-325 mg TAB] Ondansetron [Zofran ODT TAB] 4 mg PO QDAY PRN #30 tab 11/14/21 Unknown Rx Pantoprazole [Protonix TAB] 40 mg PO QDAY #30 tab 11/14/21 Unknown Rx levoFLOXacin [Levaquin TAB] 500 mg PO QDAY #5 tablet 11/14/21 Unknown Rx Active Meds: Active Medications Acetaminophen (Acetaminophen 325 Mg Tab) 650 mg PO Q6H PRN PRN Reason: Pain, Mild (1-3) Last Admin: 11/14/21 14:18 Dose: 650 mg Acetaminophen (Acetaminophen 650 Mg Rect Supp) 650 mg PA Q6H PRN PRN Reason: Pain MILD(1-3)/Fever >100.5/MAYA Last Admin: 11/14/21 05:36 Dose: 650 mg Albuterol (Albuterol 2.5 Mg/3 Ml Nebu) 2.5 mg IH Q3HRT PRN PRN Reason: Shortness Of Breath Last Admin: 11/14/21 08:39 Dose: 2.5 mg Amlodipine Besylate (Amlodipine 5 Mg Tab) 5 mg PO DAILY [facility] Last Admin: 11/14/21 09:51 Dose: 5 mg Dicyclomine HCl (Dicyclomine 20 Mg Tab) 20 mg PO TID PRN PRN Reason: BOWEL Last Admin: 11/13/21 09:41 Dose: 20 mg Fluticasone Propionate (Fluticasone Propionate Nasal [place] 16 Gm) 50 mcg NS QDAY [facility] Last Admin: 11/14/21 09:52 Dose: 50 mcg Gabapentin (Gabapentin 300 Mg Cap) 600 mg PO QDAY [facility] Last Admin: 11/14/21 09:51 Dose: 600 mg Heparin Sodium (Porcine) (Heparin 5,000 Unit/1 Ml Vial) 5,000 unit SUB-Q Q12H [facility] Last Admin: 11/14/21 05:35 Dose: 5,000 unit Hydromorphone HCl (Hydromorphone 0.5 Mg/0.5 Ml Inj) 0.25 mg IV Q4H PRN PRN Reason: Pain, Moderate (4-6) Hydromorphone HCl (Hydromorphone 0.5 Mg/0.5 Ml Inj) 0.5 mg IV Q23H PRN PRN Reason: Pain , Severe (7-10) Last Admin: 11/11/21 21:47 Dose: 0.5 mg Ceftriaxone Sodium (Rocephin/Ns 2 Gm/100 Ml) 2 gm in 100 mls @ 200 mls/hr IV Q24H [facility]; Protocol Stop: 11/15/21 13:29 Last Admin: 11/14/21 12:11 Dose: 200 mls/hr Azithromycin (Zithromax/Ns) 500 mg in 250 mls @ 250 mls/hr IV Q24H [facility]; Pro tocol Stop: 11/15/21 13:59 Last Admin: 11/14/21 12:11 Dose: 250 mls/hr Ondansetron HCl (Ondansetron 4 Mg/2 Ml Inj) 4 mg IV Q8H PRN PRN Reason: Nausea And Vomiting Last Admin: 11/14/21 12:13 Dose: 4 mg Oxycodone/Acetaminophen (Oxycodone /Acetaminophen 5-325mg Tab) 1 tab PO Q16H PRN PRN Reason: Pain, Moderate (4-6) Pantoprazole Sodium (Pantoprazole 40 Mg Inj) 40 mg IV QDAY [facility] Last Admin: 11/14/21 09:51 Dose: 40 mg Paroxetine HCl (Paroxetine 20 Mg Tab) 20 mg PO QDAY [facility] Last Admin: 11/14/21 09:57 Dose: 20 mg Quetiapine Fumarate (Quetiapine 100 Mg Tab) 100 mg PO QHS [facility] Last Admin: 11/13/21 23:30 Dose: 100 mg Ropinirole HCl (Ropinirole 0.25 Mg Tab) 0.5 mg PO QHS [facility] Last Admin: 11/13/21 23:30 Dose: 0.5 mg Sodium Chloride (Sodium Chloride 0.9% 10 Ml Flush Syringe) 10 ml IV BID [facility] Last Admin: 11/14/21 09:52 Dose: 10 ml Sodium Chloride (Sodium Chloride 0.9% 10 Ml Flush Syringe) 10 ml IV PRN PRN PRN Reason: LINE FLUSH Physical Examination - Physical Exam Narrative exam: Physical Exam: Constitutional: Alert, cooperative. No acute distress Head, Ears, Nose: Normocephalic, atraumatic. External ears, nose normal Eyes: Conjunctivae/corneas clear. No icterus. No ptosis. Neck: Supple, no meningeal signs Oral: dentition fair, no thrush Cardiovascular: S1, S2 normal. Respiratory: Good air entry, clear to auscultation bilaterally GI: Soft, non-tender; bowel sounds normal. No peritoneal signs. Musculoskeletal: No pedal edema, no cyanosis. Skin: No rash or abscess Hem/Lymphatic: No palpable cervical or supraclavicular nodes. No lymphangitis Psych: Mood ok. Affect normal Neurological: Awake, alert, oriented. No gross abnormality - Constitutional Vitals: Vital Signs Temp Pulse Resp BP Pulse Ox 98.8 F 100 H 22 146/70 94 11/14/21 11:54 11/14/21 11:54 11/14/21 16:00 11/14/21 11:54 11/14/21 16:00 Temperature -Last 24 Hours Temperature 98.8 F Temperature 98.3 F Temperature 98.4 F Temperature 100.0 F Temperature 100.0 F Results - Labs CBC & Chem 7: 11/14/21 04:52 11/14/21 04:52 Labs: Abnormal lab results 11/14/21 11/14/21 Range/Units 04:52 04:52 RBC 3.12 L (3.65-5.03) M/mm3 Hgb 8.6 L (10.1-14.3) gm/dl Hct 27.0 L (30.3-42.9) % RDW 16.6 H (13.2-15.2) % Sodium 132 L (137-145) mmol/L Chloride 93.6 L (98-107) mmol/L Carbon Dioxide 31 H (22-30) mmol/L Glucose 116 H (65-100) mg/dL AST 57 H (5-40) units/L ALT 79 H (7-56) units/L Total Protein 6.1 L (6.3-8.2) g/dL Albumin 3.0 L (3.9-5) g/dL Assessment and Plan Cultures: Blood culture no growth so far A/P: 76-year-old female past medical history of vascular dementia, HTN, GERD, COPD, asthma #Acute sepsis: Present with cytosis, tachycardia, tachypnea. Secondary to multifocal pneumonia #Acute hypoxic respiratory failure: Secondary to pneumonia, currently on 2 L nasal cannula. #Multifocal pneumonia: Likely bacterial. #AUNG: Renally dose medications. Resolved. Recs: -Continue ceftriaxone, azithromycin while inpatient -Okay to discharge on Omnicef 3 mg every 12 hours to complete 7 antibiotics Thank you for the consult, we will continue to follow. Deyanira Villela MD [facility] O: [phone] F: [phone]
[2021-11-14 21:23] VITALS: BP 149/76
[2021-11-14] MEDS: rOPINIRole 0.25 MG TAB PO SCH (21:33)
[2021-11-14] MEDS: QUEtiapine 100 MG TAB PO SCH (21:34)
== END 2021-11-14 21:50 | disposition home or self-care (01) | DRG 871 ==
LOC: ED 07:27 → IMCU 12:07 → 4A 11-13 18:03
PROVIDERS: ADMIT Internal Medicine; ATTEND Internal Medicine
PROC: 06HY33Z Insertion of Infusion Device into Lower Vein, Percutaneous Approach (ICD-10-PCS; principal; 2021-11-11)
PROC: B54BZZA Ultrasonography of Right Lower Extremity Veins, Guidance (ICD-10-PCS; 2021-11-11)
DX: A41.50 Gram-negative sepsis, unspecified (principal); N17.0 Acute kidney failure with tubular necrosis; J18.9 Pneumonia, unspecified organism; G92.8 Other toxic encephalopathy; K21.01 Gastro-esophageal reflux disease with esophagitis, with bleeding; E87.1 Hypo-osmolality and hyponatremia; I50.32 Chronic diastolic (congestive) heart failure; Z20.822 Contact with and (suspected) exposure to COVID-19; E66.9 Obesity, unspecified; Z68.31 Body mass index [BMI] 31.0-31.9, adult; Z88.8 Allergy status to other drugs, medicaments and biological substances; F03.90 Unspecified dementia, unspecified severity, without behavioral disturbance, psychotic disturbance, mood disturbance, and anxiety; J44.9 Chronic obstructive pulmonary disease, unspecified; I11.0 Hypertensive heart disease with heart failure; I67.2 Cerebral atherosclerosis; D64.9 Anemia, unspecified; G20 Parkinson's disease; K21.00 Gastro-esophageal reflux disease with esophagitis, without bleeding; I05.0 Rheumatic mitral stenosis; Z80.0 Family history of malignant neoplasm of digestive organs; Z87.891 Personal history of nicotine dependence
CPT/HCPCS: 36415; 70450; 71045; 74176; 80053; 80074; 81001; 82140; 85007; 85014; 85018; 85025; 85027; 85610; 85730; 86850; 86900; 86901; 87040; 93005; 94640; 94760; G0378; J3490; C9113; J0456; J0696; J1170; J1644; J2060; J2405; J7030; J7120; U0003

== ENCOUNTER 2022-01-31 18:04 | Emergency (ER) | payer MEDICARE ==
[2022-02-01 05:57] LABS: Color,Urine Colorless (Yellow)
[2022-02-01 06:03] LABS: RBC,Urine < 1.0 /HPF (0.0-6.0)
--- NOTE | 2022-02-01 06:27 | Emergency Department Report ---
HPI - General Chief Complaint: Pain General Time Seen by Provider: 02/01/22 06:11 - HPI HPI: Room 5 The patient is a 76-year-old female presenting with a chief complaint of headache and back pain. The patient was reportedly kicked out of her hotel and found by EMS sitting under a tree. The patient states she has low back pain that increases with movement for the past 3 to 4 days and also a headache that began yesterday. Patient admits to episodes of nausea vomiting for 3 to 4 days and feeling depressed for the past 2 to 3 days. Patient denies suicidal or homicidal ideation. Patient denies auditory visual hallucinations. Patient denies any preceding trauma. Patient denies history of dysuria or hematuria. Patient denies history of fever ED Past Medical Hx - Past Medical History Hx Hypertension: Yes Hx GERD: Yes Hx Asthma: Yes Hx COPD: Yes - Surgical History Hx Cholecystectomy: Yes Additional Surgical History: Right ankle fracture repair - Social History Smoking Status: Never Smoker Substance Use Type: None - Medications Home Medications: Home Medications Medication Instructions Recorded Confirmed Last Taken Type Dicyclomine [Bentyl] 20 mg PO TID PRN 11/12/21 11/12/21 Unknown History Fluticasone [Flonase] 1 spray NS QDAY 11/12/21 11/12/21 Unknown History Gabapentin [Neurontin] 600 mg PO QDAY 11/12/21 11/12/21 Unknown History PARoxetine [Paxil] 20 mg PO QDAY 11/12/21 11/12/21 Unknown History QUEtiapine [SEROquel] 100 mg PO QHS 11/12/21 11/12/21 Unknown History amLODIPine 5 mg PO DAILY 11/12/21 11/12/21 Unknown History rOPINIRole (NF) [Requip (Nf)] 0.5 mg PO QHS 11/12/21 11/12/21 Unknown History Furosemide [Lasix] 20 mg PO QDAY #10 tablet 11/14/21 Unknown Rx HYDROcodone/APAP 7.5-325 [[place] 7.5 - 325 mg PO TID PRN #12 tab 11/14/21 Unknown Rx 7.5-325 mg TAB] Ondansetron [Zofran ODT TAB] 4 mg PO QDAY PRN #30 tab 11/14/21 Unknown Rx Pantoprazole [Protonix TAB] 40 mg PO QDAY #30 tab 11/14/21 Unknown Rx levoFLOXacin [Levaquin TAB] 500 mg PO QDAY #5 tablet 11/14/21 Unknown Rx traMADoL [Ultram] 50 mg PO Q6HR PRN #7 tablet 02/02/22 Unknown Rx ED Review of Systems ROS: Stated complaint: PAIN ALL OVER BODY Other details as noted in HPI Constitutional: denies: fever Eyes: denies: eye pain ENT: denies: throat pain Respiratory: no symptoms reported Cardiovascular: denies: chest pain Endocrine: no symptoms reported Gastrointestinal: nausea, vomiting. denies: abdominal pain Genitourinary: denies: dysuria, hematuria Musculoskeletal: back pain Neurological: headache Physical Exam - Physical Exam Vital Signs: Vital Signs 01/31/22 01/31/22 02/01/22 18:07 22:36 06:19 Temperature 97.9 F 98.6 F 97.9 F Pulse Rate 100 H 101 H 105 H Respiratory 16 18 19 Rate Blood Pressure 156/78 Blood Pressure 158/99 174/86 [Left] O2 Sat by Pulse 97 97 98 Oximetry 02/01/22 02/01/22 06:20 06:21 Temperature 97.9 F Pulse Rate 105 H Respiratory 19 Rate Blood Pressure 174/86 Blood Pressure [Left] O2 Sat by Pulse 98 Oximetry Physical Exam: GENERAL: The patient is well-developed well-nourished female lying on stretcher not appearing to be in acute distress. [] HEENT: Normocephalic. Atraumatic. Extraocular motions are intact. Patient has moist mucous membranes. NECK: Supple. No meningitic signs are noted. Trachea midline CHEST/LUNGS: Clear to auscultation. There is no respiratory distress noted. HEART/CARDIOVASCULAR: Regular. There is no tachycardia. There is no gallop rub or murmur. ABDOMEN: Abdomen is soft, nontender. Patient has normal bowel sounds. There is no abdominal distention. SKIN: There is no rash. There is no edema. There is no diaphoresis. NEURO: The patient is awake, alert, and oriented. The patient is cooperative. The patient has no focal neurologic deficits. The patient has normal speech. GCS 15 MUSCULOSKELETAL: There is no evidence of acute injury. ED Course Vital Signs 01/31/22 01/31/22 02/01/22 18:07 22:36 06:19 Temperature 97.9 F 98.6 F 97.9 F Pulse Rate 100 H 101 H 105 H Respiratory 16 18 19 Rate Blood Pressure 156/78 Blood Pressure 158/99 174/86 [Left] O2 Sat by Pulse 97 97 98 Oximetry 02/01/22 02/01/22 06:20 06:21 Temperature 97.9 F Pulse Rate 105 H Respiratory 19 Rate Blood Pressure 174/86 Blood Pressure [Left] O2 Sat by Pulse 98 Oximetry ED Medical Decision Making - Lab Data Result diagrams: 02/01/22 07:04 02/01/22 07:04 Laboratory Tests 02/01/22 02/01/22 02/01/22 07:04 07:04 07:04 WBC 7.0 RBC 4.25 Hgb 11.0 Hct 34.9 MCV 82 MCH 26 L MCHC 32 RDW 19.2 H Plt Count 366 Lymph % (Auto) 41.8 H Bryan % (Auto) 9.0 H Eos % (Auto) 1.7 Baso % (Auto) 0.8 Lymph # (Auto) 2.9 Bryan # (Auto) 0.6 Eos # (Auto) 0.1 Baso # (Auto) 0.1 Seg Neutrophils % 46.7 Seg Neutrophils # 3.2 Sodium 127 L Potassium 3.8 Chloride 88.1 L Carbon Dioxide 23 Anion Gap 20 BUN 10 Creatinine 1.2 Estimated GFR 44 BUN/Creatinine Ratio 8 Glucose 117 H Calcium 9.3 Total Creatine Kinase 86 Urine Color Urine Turbidity Specific [place] (Man) Ur Protein (Man) Ur Ketones (Man) Ur Nitrite (Man) Urine Bilirubin (Man) Leukocyte Esterase (Man) Urine WBC (Auto) Urine RBC (Auto) U Epithel Cells (Auto) Urine RBC (Manual) Salicylates < 0.3 L Acetaminophen Plasma/Serum Alcohol 02/01/22 02/01/22 02/01/22 07:04 07:04 13:22 WBC RBC Hgb Hct MCV MCH MCHC RDW Plt Count Lymph % (Auto) Bryan % (Auto) Eos % (Auto) Baso % (Auto) Lymph # (Auto) Bryan # (Auto) Eos # (Auto) Baso # (Auto) Seg Neutrophils % Seg Neutrophils # Sodium Potassium Chloride Carbon Dioxide Anion Gap BUN Creatinine Estimated GFR BUN/Creatinine Ratio Glucose Calcium Total Creatine Kinase Urine Color Urine Turbidity Specific [place] (Man) Ur Protein (Man) Ur Ketones (Man) Ur Nitrite (Man) Urine Bilirubin (Man) Leukocyte Esterase (Man) Urine WBC (Auto) Urine RBC (Auto) 1.0 U Epithel Cells (Auto) 1.0 Urine RBC (Manual) Salicylates Acetaminophen 5.0 L Plasma/Serum Alcohol < 0.01 02/01/22 Unknown WBC RBC Hgb Hct MCV MCH MCHC RDW Plt Count Lymph % (Auto) Bryan % (Auto) Eos % (Auto) Baso % (Auto) Lymph # (Auto) Bryan # (Auto) Eos # (Auto) Baso # (Auto) Seg Neutrophils % Seg Neutrophils # Sodium Potassium Chloride Carbon Dioxide Anion Gap BUN Creatinine Estimated GFR BUN/Creatinine Ratio Glucose Calcium Total Creatine Kinase Urine Color Colorless Urine Turbidity Clear Specific [place] (Man) 1.000 L Ur Protein (Man) Negative Ur Ketones (Man) Negative Ur Nitrite (Man) Negative Urine Bilirubin (Man) Negative Leukocyte Esterase (Man) Negative Urine WBC (Auto) 1.0 Urine RBC (Auto) < 1.0 U Epithel Cells (Auto) 2.0 Urine RBC (Manual) Negative Salicylates Acetaminophen Plasma/Serum Alcohol - Radiology Data Radiology results: report reviewed (CT head), image reviewed (CT head) [place] [address] Cat Scan Report Signed Patient: SHIVA DENG MR#: [id number] 97 : 1945 Acct:[id number] Age/Sex: 76 / F ADM Date: 01/31/22 Loc: ED Attending Dr: Ordering Physician: DONA REAGAN MD Date of Service: 02/01/22 Procedure(s): CT head/brain wo con Accession Number(s): [id number] cc: DONA REAGAN MD CT head without contrast HISTORY: Headache nausea vomiting. TECHNIQUE: Axial imaging performed from the skull apex through the skull base without the use of contrast. All CT scans at this location are performed using CT dose reduction for ALARA by means of automated exposure control. COMPARISON: CT head from 11/11/2021 FINDINGS: Parenchyma: No acute intracranial hemorrhage or parenchymal abnormality. Ventricles: There is mild diffuse brain atrophy with commensurate ventricular enlargement which is likely age appropriate. Soft tissues: Soft tissues including the orbits appear normal. Bones: No acute osseous abnormality. Sinuses: Sinuses and mastoid air cells are clear. IMPRESSION: No acute abnormality. Signer Name: Farrukh Choe MD Signed: 02/01/2022 7:44 AM Workstation Name: [id number] Transcribed By: JW Dictated By: Farrukh Choe MD Electronically Authenticated By: Farrukh Choe MD Signed Date/Time: 02/01/22743 DD/ 1 TD/TT: - Medical Decision Making Psych and case management notes appreciated. - Differential Diagnosis Headache, ICH, arthritis, UTI, homelessness Critical care attestation.: If time is entered above; I have spent that time in minutes in the direct care of this critically ill patient, excluding procedure time. ED Disposition Clinical Impression: Headache, Homelessness Disposition: 01 HOME / SELF CARE / HOMELESS Is pt being admited?: No Does the pt Need Aspirin: No Condition: Stable Additional Instructions: Professional and Agency Contacts To help Resolve Crises(11/12) [place] Crisis Line: Suicide Prevention Line: Crisis Text Line: Text START to [phone] Emergency: 911 Outpatient COMMUNITY Behavioral Health Resources: [place]: [facility] [address] [place], [place] [address] [address] [facility] - [address] [place] [address] Sunday thru Sunday - 8am - 5pm [facility] Address: [address] [place] [address] [place]: [facility] Address: [address] [place] [address] Sunday thru Sunday- 7am-2pm [facility] Address: [address] [place] [address] Sunday thru Sunday: 8:30AM-5PM Prescriptions: traMADoL [Ultram] 50 mg PO Q6HR PRN #7 tablet PRN Reason: Pain Referrals: CARBUCCIA,MARGARET, MD [Primary Care Provider] - 3-5 Days Time of Disposition: 11:49
[2022-02-01 07:12] LABS: Basophils # (Auto) 0.1 K/mm3 (0.0-0.1); Basophils % (Auto) 0.8 % (0.0-1.8); Eosinophils # (Auto) 0.1 K/mm3 (0.0-0.4); Eosinophils % (Auto) 1.7 % (0.0-4.3); Hematocrit 34.9 % (30.3-42.9); Lymphocytes # (Auto) 2.9 K/mm3 (1.2-5.4); Lymphocytes % (Auto) 41.8 % (13.4-35.0); Mean Corpuscular HGB Conc 32 % (30-34); Mean Corpuscular Volume 82 fl (79-97); Monocytes # (Auto) 0.6 K/mm3 (0.0-0.8); Platelet Count 366 K/mm3 (140-440); Red Blood Count 4.25 M/mm3 (3.65-5.03); Red Cell Distribution Width 19.2 % (13.2-15.2)
[2022-02-01 07:32] LABS: Calcium 9.3 mg/dL (8.4-10.2)
[2022-02-01] MEDS ORDERED: SODIUM CHLORIDE 0.9% 1000 ML 1,000 ML IV ONE (07:44)
--- NOTE | 2022-02-01 07:48 | Cat Scan Report ---
CT head without contrast HISTORY: Headache nausea vomiting. TECHNIQUE: Axial imaging performed from the skull apex through the skull base without the use of con trast. All CT scans at this location are performed using CT dose reduction for ALARA by means of aut omated exposure control. COMPARISON: CT head from 11/11/2021 FINDINGS: Parenchyma: No acute intracranial hemorrhage or parenchymal abnormality. Ventricles: There is mild diffuse brain atrophy with commensurate ventricular enlargement which is l ikely age appropriate. Soft tissues: Soft tissues including the orbits appear normal. Bones: No acute osseous abnormality. Sinuses: Sinuses and mastoid air cells are clear. IMPRESSION: No acute abnormality. Signer Name: Farrukh Choe MD Signed: 02/01/2022 7:44 AM Workstation Name: [id number]
[2022-02-01] MEDS ORDERED: SODIUM CHLORIDE 0.9% 1000 ML 1,000 ML ONE (10:45)
--- NOTE | 2022-02-01 13:16 | Consultation ---
History of Present Illness - Reason for Consult Consult date: 02/01/22 Reason for consult: homelessness - History of Present Psychiatric Illness The patient was seen today. She is a/o x 3. The patient says she has a backache and hurting all over. The patient says she was brought to the hospital by the police because she was sleeping outside. She says she is staying at a hotel. The patient says she doesn't have any money to pay for it. The patient says she has a history of bipolar and schizophrenia. She says she feels okay, but at times depressed. The patient says she buried a daughter in July. She says she takes xanax and seroquel for her mental illness. The patient says she has very limited family. She does says she has two sisters and a niece. The patient denies SI/HI or hallucinations. REVIEW OF SYSTEMS Constitutional: Negative for weight loss ENT: Negative for stridor Respiratory: Negative for cough or hemoptysis All other systems reviewed and are negative MENTAL STATUS EXAMINATION General Appearance and Behavior: Age appropriate, calm, cooperative Cooperation: cooperative Psychomotor Behavior: Psychomotor normal, Mood: okay, sometimes depressed Affect and affective range: congruent with stated mood Thought Process: goal directed Thought Content: None Speech: normal rate and volume Suicidal Ideation: Denies Homicidal Ideation: Denies Hallucinations: Denies Delusions: None elicited Impulse Control: Limited Insight and Judgment: Limited Memory: Normal Attention: Attentive Orientation: Aox4 Assessment and Plan (1) Hx of Bipolar and Schizophrenia Treatment Plan Please make sure Case management speaks with this patient Zoloft 50mg po daily Seroquel 50mg po qhs The patient is to get first dose of meds prior to leaving. Benefits and possible SE were explained to patient. She verbalizes understanding. Risks, benefits and alternatives of medications discussed with the patient, questions answered and consent obtained from patient. PSYCHOTHERAPY: Supportive psychotherapy provided MEDICAL: Per primary team DELIRIUM PRECAUTIONS: Please re-orient patient frequently, keep lights on during the day, and minimize benzodiazepines and opiates as these medications could worsen patient's confusion. AQUATICS DIRECTOR: Defer to primary DISPOSITION: Do not recommend acute inpatient psychiatric hospitalization at this time. [employer] Senior Developer to give the patient all necessary resources including residential, CBT and grief counseling FOLLOW-UP: will sign off Thank you for the consult. Please contact with any questions and/or concerns Case discussed with Dr. Smith who agrees with current disposition Medications and Allergies Allergies Allergy/AdvReac Type Severity Reaction Status Date / Time tetracycline Allergy Unknown Verified 01/31/22 18:09 Home Medications Medication Instructions Recorded Confirmed Last Taken Type Dicyclomine [Bentyl] 20 mg PO TID PRN 11/12/21 11/12/21 Unknown History Fluticasone [Flonase] 1 spray NS QDAY 11/12/21 11/12/21 Unknown History Gabapentin [Neurontin] 600 mg PO QDAY 11/12/21 11/12/21 Unknown History PARoxetine [Paxil] 20 mg PO QDAY 11/12/21 11/12/21 Unknown History QUEtiapine [SEROquel] 100 mg PO QHS 11/12/21 11/12/21 Unknown History amLODIPine 5 mg PO DAILY 11/12/21 11/12/21 Unknown History rOPINIRole (NF) [Requip (Nf)] 0.5 mg PO QHS 11/12/21 11/12/21 Unknown History Furosemide [Lasix] 20 mg PO QDAY #10 tablet 11/14/21 Unknown Rx HYDROcodone/APAP 7.5-325 [[place] 7.5 - 325 mg PO TID PRN #12 tab 11/14/21 Unknown Rx 7.5-325 mg TAB] Ondansetron [Zofran ODT TAB] 4 mg PO QDAY PRN #30 tab 11/14/21 Unknown Rx Pantoprazole [Protonix TAB] 40 mg PO QDAY #30 tab 11/14/21 Unknown Rx levoFLOXacin [Levaquin TAB] 500 mg PO QDAY #5 tablet 11/14/21 Unknown Rx Mental Status Exam - Vital signs Last Vital Signs Temp 97.9 F 02/01/22 06:21 Pulse 96 H 02/01/22 10:18 Resp 14 02/01/22 10:18 BP 107/91 02/01/22 10:18 Pulse Ox 97 02/01/22 10:18 Results Result Diagrams: 02/01/22 07:04 02/01/22 07:04 Abnormal lab results 02/01/22 02/01/22 02/01/22 Range/Units 07:04 07:04 07:04 MCH 26 L (28-32) pg RDW 19.2 H (13.2-15.2) % Lymph % (Auto) 41.8 H (13.4-35.0) % [place] % (Auto) 9.0 H (0.0-7.3) % Sodium 127 L (137-145) mmol/L Chloride 88.1 L (98-107) mmol/L Glucose 117 H (65-100) mg/dL Specific [place] (Man) (1.003-1.030) Salicylates < 0.3 L (2.8-20.0) mg/dL Acetaminophen (10.0-30.0) ug/mL 02/01/22 02/01/22 Range/Units 07:04 Unknown MCH (28-32) pg RDW (13.2-15.2) % Lymph % (Auto) (13.4-35.0) % [place] % (Auto) (0.0-7.3) % Sodium (137-145) mmol/L Chloride (98-107) mmol/L Glucose (65-100) mg/dL Specific [place] (Man) 1.000 L (1.003-1.030) Salicylates (2.8-20.0) mg/dL Acetaminophen 5.0 L (10.0-30.0) ug/mL All other labs normal.
[2022-02-01 13:39] LABS: Granular Casts,Urine 1 /LPF
[2022-02-01] MEDS ORDERED: SERTRALINE 25 MG TAB PO SCH (14:00)
[2022-02-01 14:15] LABS: Color,Urine Straw (Yellow)
[2022-02-01] MEDS ORDERED: QUEtiapine 25 MG TAB PO SCH (22:00)
[2022-02-02 10:24] VITALS: BP 127/62
== END 2022-02-02 12:52 | disposition home or self-care (01) ==
LOC: ED 18:04
DX: R51.9 Headache, unspecified (principal); M54.50 Low back pain, unspecified; I10 Essential (primary) hypertension; K21.9 Gastro-esophageal reflux disease without esophagitis; J45.909 Unspecified asthma, uncomplicated; Z59.00 Homelessness unspecified; Z88.1 Allergy status to other antibiotic agents; Z79.899 Other long term (current) drug therapy
CPT/HCPCS: 36415; 70450; 80048; 81001; 82550; 85025; 96360; 99285; J7030; 80320; G0480

== ENCOUNTER 2022-02-02 20:07 | Emergency (ER) | payer MEDICARE ==
[2022-02-03] MEDS ORDERED: KETOROLAC 60 MG/2 ML INJ IM ONE (03:40)
[2022-02-03 04:37] LABS: Hyaline Casts,Urine 7 /LPF; Mucus,Urine 1+ /HPF
[2022-02-03 04:40] LABS: Color,Urine Yellow (Yellow)
--- NOTE | 2022-02-03 05:15 | Emergency Department Report ---
ED Back Pain/Injury HPI - General Chief Complaint: Back Pain/Injury Stated Complaint: BACK PAIN Time Seen by Provider: 02/03/22 03:33 Source: patient Limitations: No Limitations - History of Present Illness Initial Comments: Patient 76-year-old female who presents for low back pain rated at 4/10 for the past 2 weeks. Patient states history of chronic back pain and arthralgia. Patient seen on last night treated with Ultram. States pain returned there is no fevers no chills no nausea vomiting there is been no loss or decrease in bowel or bladder function. Patient arrived via ambulance patient is amatory with steady gait at this time. Patient denies new fall injury or fall. MD Complaint: back pain - Related Data Home Medications Medication Instructions Recorded Confirmed Last Taken Dicyclomine [Bentyl] 20 mg PO TID PRN 11/12/21 11/12/21 Unknown Fluticasone [Flonase] 1 spray NS QDAY 11/12/21 11/12/21 Unknown Gabapentin [Neurontin] 600 mg PO QDAY 11/12/21 11/12/21 Unknown PARoxetine [Paxil] 20 mg PO QDAY 11/12/21 11/12/21 Unknown QUEtiapine [SEROquel] 100 mg PO QHS 11/12/21 11/12/21 Unknown amLODIPine 5 mg PO DAILY 11/12/21 11/12/21 Unknown rOPINIRole (NF) [Requip (Nf)] 0.5 mg PO QHS 11/12/21 11/12/21 Unknown Previous Rx's Medication Instructions Recorded Last Taken Type Furosemide [Lasix] 20 mg PO QDAY #10 tablet 11/14/21 Unknown Rx HYDROcodone/APAP 7.5-325 [[place] 7.5 - 325 mg PO TID PRN #12 tab 11/14/21 Unknown Rx 7.5-325 mg TAB] Ondansetron [Zofran ODT TAB] 4 mg PO QDAY PRN #30 tab 11/14/21 Unknown Rx Pantoprazole [Protonix TAB] 40 mg PO QDAY #30 tab 11/14/21 Unknown Rx levoFLOXacin [Levaquin TAB] 500 mg PO QDAY #5 tablet 11/14/21 Unknown Rx traMADoL [Ultram] 50 mg PO Q6HR PRN #7 tablet 02/02/22 Unknown Rx Acetaminophen [Tylenol Extra 1,000 mg PO BID PRN #30 1000units 02/03/22 Unknown Rx Strength] Allergies Allergy/AdvReac Type Severity Reaction Status Date / Time tetracycline Allergy Unknown Verified 01/31/22 18:09 ED Review of Systems ROS: Stated complaint: BACK PAIN Other details as noted in HPI Constitutional: denies: chills, fever Eyes: denies: eye pain, eye discharge, vision change ENT: denies: ear pain, throat pain Respiratory: denies: cough, shortness of breath, wheezing Cardiovascular: denies: chest pain, palpitations Endocrine: no symptoms reported Gastrointestinal: denies: abdominal pain, nausea, diarrhea Genitourinary: denies: urgency, dysuria, discharge Musculoskeletal: back pain, arthralgia Skin: denies: rash, lesions Neurological: denies: headache, weakness, numbness, paresthesias, confusion, abnormal gait, vertigo Psychiatric: denies: anxiety, auditory hallucinations Hematological/Lymphatic: denies: easy bleeding, easy bruising ED Past Medical Hx - Past Medical History Previous Medical History?: Yes Hx Hypertension: Yes Hx GERD: Yes Hx Asthma: Yes Hx COPD: Yes - Surgical History Past Surgical History?: Yes Hx Cholecystectomy: Yes Additional Surgical History: Right ankle fracture repair - Social History Smoking Status: Unknown if ever smoked Substance Use Type: None - Medications Home Medications: Home Medications Medication Instructions Recorded Confirmed Last Taken Type Dicyclomine [Bentyl] 20 mg PO TID PRN 11/12/21 11/12/21 Unknown History Fluticasone [Flonase] 1 spray NS QDAY 11/12/21 11/12/21 Unknown History Gabapentin [Neurontin] 600 mg PO QDAY 11/12/21 11/12/21 Unknown History PARoxetine [Paxil] 20 mg PO QDAY 11/12/21 11/12/21 Unknown History QUEtiapine [SEROquel] 100 mg PO QHS 11/12/21 11/12/21 Unknown History amLODIPine 5 mg PO DAILY 11/12/21 11/12/21 Unknown History rOPINIRole (NF) [Requip (Nf)] 0.5 mg PO QHS 11/12/21 11/12/21 Unknown History Furosemide [Lasix] 20 mg PO QDAY #10 tablet 11/14/21 Unknown Rx HYDROcodone/APAP 7.5-325 [[place] 7.5 - 325 mg PO TID PRN #12 tab 11/14/21 Unknown Rx 7.5-325 mg TAB] Ondansetron [Zofran ODT TAB] 4 mg PO QDAY PRN #30 tab 11/14/21 Unknown Rx Pantoprazole [Protonix TAB] 40 mg PO QDAY #30 tab 11/14/21 Unknown Rx levoFLOXacin [Levaquin TAB] 500 mg PO QDAY #5 tablet 11/14/21 Unknown Rx traMADoL [Ultram] 50 mg PO Q6HR PRN #7 tablet 02/02/22 Unknown Rx Acetaminophen [Tylenol Extra 1,000 mg PO BID PRN #30 1000units 02/03/22 Unknown Rx Strength] ED Physical Exam - General Limitations: No Limitations General appearance: alert, in no apparent distress - Head Head exam: Present: normocephalic, normal inspection - Eye Eye exam: Present: EOMI Pupils: Present: normal accommodation - ENT ENT exam: Present: mucous membranes moist - Neck Neck exam: Present: normal inspection, full ROM. Absent: tenderness, lymphadenopathy - Respiratory Respiratory exam: Present: normal lung sounds bilaterally. Absent: respiratory distress, wheezes, stridor - Cardiovascular Cardiovascular Exam: Present: regular rate, normal rhythm, normal heart sounds. Absent: systolic murmur, diastolic murmur, rubs, gallop - GI/Abdominal GI/Abdominal exam: Present: soft, normal bowel sounds. Absent: distended, tenderness, guarding, rebound, rigid, bruit - Rectal Rectal exam: Present: deferred - External exam: Present: other - Extremities Exam Extremities exam: Present: normal inspection (Furred), full ROM, normal capillary refill. Absent: tenderness - Back Exam Back exam: Present: normal inspection, full ROM. Absent: CVA tenderness (R), CVA tenderness (L), paraspinal tenderness, vertebral tenderness - Expanded Back Exam Expanded Back exam: Absent: saddle anesthesia Back exam: Negative Straight Leg Raising: Left, Right - Neurological Exam Neurological exam: Present: alert, oriented X3, CN II-XII intact, normal gait, reflexes normal. Absent: motor sensory deficit ED Course Vital Signs 02/02/22 21:12 Temperature 98.6 F Pulse Rate 103 H Respiratory 18 Rate Blood Pressure 150/79 O2 Sat by Pulse 94 Oximetry ED Medical Decision Making - Medical Decision Making Back pain improved at this time. This is no mucosal back pain flare for this patient. There is no numbness no tingling. Patient is alert oriented x3 patient is ambulatory with steady gait. There is no dysuria frequency or urgency. There is no fevers no chills. Patient appears nontoxic patient appears well-hydrated well-nourished. Plan continue with previous plan, Tylenol as needed pain, follow-up with primary care doctor in 2 to 3 days. Return to emergency department should symptoms worsen. Patient verbalized agreement and understanding with discharge plan. Patient will be DC'd home in stable condition at this time. Critical care attestation.: If time is entered above; I have spent that time in minutes in the direct care of this critically ill patient, excluding procedure time. ED Disposition Clinical Impression: Back pain Qualifiers: Back pain location: low back pain Chronicity: chronic Back pain laterality: left Sciatica presence: without sciatica Qualified Code(s): M54.50 - Low back pain, unspecified; G89.29 - Other chronic pain Disposition: 01 HOME / SELF CARE / HOMELESS Is pt being admited?: No Does the pt Need Aspirin: No Condition: Stable Instructions: Chronic Back Pain, [id number] Additional Instructions: Take medications as prescribed, follow-up with your doctor in 2 to 3 days. Return to emergency department should symptoms worsen. Prescriptions: Acetaminophen [Tylenol Extra Strength] 1,000 mg PO BID PRN #30 1000units PRN Reason: pain Referrals: MARGARET LOPEZ MD [Primary Care Provider] - 3-5 Days Time of Disposition: 05:40
[2022-02-03 05:54] VITALS: BP 120/80
== END 2022-02-03 05:53 | disposition home or self-care (01) ==
LOC: ED 20:07
DX: M54.50 Low back pain, unspecified (principal); I10 Essential (primary) hypertension; Z90.49 Acquired absence of other specified parts of digestive tract; J45.909 Unspecified asthma, uncomplicated; Z88.8 Allergy status to other drugs, medicaments and biological substances
CPT/HCPCS: 81001; 96372; 99283; J1885

== ENCOUNTER 2022-02-03 09:29 | Emergency (ER) | payer MEDICARE ==
[2022-02-03] MEDS ORDERED: traMADol 50 MG TAB PO ONE (13:14)
--- NOTE | 2022-02-03 13:20 | Emergency Department Report ---
ED Fall HPI - General Chief Complaint: Extremity Injury, Lower Stated Complaint: FALL/LT LEG PAIN Time Seen by Provider: 02/03/22 12:57 Source: patient Mode of arrival: Wheelchair - History of Present Illness Initial Comments: Patient is a 76-year-old female who is chronically wheelchair-bound due to degenerative disc disease who presents after falling out of her wheelchair. She states she was going down a hill and fell forward. Her only complaint is pain in her left knee and left hip. She denies any head injury, neck, back pain. Denies any other injury. Injury occurred today. Fall From: wheelchair Place Fall Occurred: street Loss of Consciousness: none Prolonged Down Time?: no Symptoms Prior to Fall: none Location - Extremities: Left: Knee (And hip) Associated Symptoms: unable to walk (Chronically unable to walk due to pain from degenerative disc disease). denies: headache, neck pain, numbness, weakness, chest paint, shortness of breath, abdominal pain, hematuria, lightheaded, vertig o, confusion - Related Data Home Medications Medication Instructions Recorded Confirmed Last Taken Dicyclomine [Bentyl] 20 mg PO TID PRN 11/12/21 11/12/21 Unknown Fluticasone [Flonase] 1 spray NS QDAY 11/12/21 11/12/21 Unknown Gabapentin [Neurontin] 600 mg PO QDAY 11/12/21 11/12/21 Unknown PARoxetine [Paxil] 20 mg PO QDAY 11/12/21 11/12/21 Unknown QUEtiapine [SEROquel] 100 mg PO QHS 11/12/21 11/12/21 Unknown amLODIPine 5 mg PO DAILY 11/12/21 11/12/21 Unknown rOPINIRole (NF) [Requip (Nf)] 0.5 mg PO QHS 11/12/21 11/12/21 Unknown Previous Rx's Medication Instructions Recorded Last Taken Type Furosemide [Lasix] 20 mg PO QDAY #10 tablet 11/14/21 Unknown Rx HYDROcodone/APAP 7.5-325 [[place] 7.5 - 325 mg PO TID PRN #12 tab 11/14/21 Unknown Rx 7.5-325 mg TAB] Ondansetron [Zofran ODT TAB] 4 mg PO QDAY PRN #30 tab 11/14/21 Unknown Rx Pantoprazole [Protonix TAB] 40 mg PO QDAY #30 tab 11/14/21 Unknown Rx levoFLOXacin [Levaquin TAB] 500 mg PO QDAY #5 tablet 11/14/21 Unknown Rx traMADoL [Ultram] 50 mg PO Q6HR PRN #7 tablet 02/02/22 Unknown Rx Acetaminophen [Tylenol Extra 1,000 mg PO BID PRN #30 1000units 02/03/22 Unknown Rx Strength] Allergies Allergy/AdvReac Type Severity Reaction Status Date / Time tetracycline Allergy Unknown Verified 01/31/22 18:09 ED Review of Systems ROS: Stated complaint: FALL/LT LEG PAIN Other details as noted in HPI Comment: All other systems reviewed and negative Constitutional: denies: chills, fever Eyes: denies: vision change ENT: denies: epistaxis Respiratory: no symptoms reported. denies: orthopnea, shortness of breath Cardiovascular: denies: chest pain, edema Endocrine: denies: intolerance to cold, intolerance to heat Gastrointestinal: other (No incontinence of bladder or bowel). denies: abdominal pain, nausea, vomiting Genitourinary: denies: hematuria Musculoskeletal: back pain (No change in chronic back pain) Skin: other (Abrasion left infrapatellar area). denies: rash Neurological: denies: headache, weakness, numbness, paresthesias Psychiatric: denies: anxiety, depression Hematological/Lymphatic: denies: easy bleeding, easy bruising ED Past Medical Hx - Past Medical History Hx Hypertension: Yes Hx GERD: Yes Hx Asthma: Yes Hx COPD: Yes - Surgical History Hx Cholecystectomy: Yes Additional Surgical History: Right ankle fracture repair - Social History Smoking Status: Unknown if ever smoked (But does not smoke now) Substance Use Type: None - Medications Home Medications: Home Medications Medication Instructions Recorded Confirmed Last Taken Type Dicyclomine [Bentyl] 20 mg PO TID PRN 11/12/21 11/12/21 Unknown History Fluticasone [Flonase] 1 spray NS QDAY 11/12/21 11/12/21 Unknown History Gabapentin [Neurontin] 600 mg PO QDAY 11/12/21 11/12/21 Unknown History PARoxetine [Paxil] 20 mg PO QDAY 11/12/21 11/12/21 Unknown History QUEtiapine [SEROquel] 100 mg PO QHS 11/12/21 11/12/21 Unknown History amLODIPine 5 mg PO DAILY 11/12/21 11/12/21 Unknown History rOPINIRole (NF) [Requip (Nf)] 0.5 mg PO QHS 11/12/21 11/12/21 Unknown History Furosemide [Lasix] 20 mg PO QDAY #10 tablet 11/14/21 Unknown Rx HYDROcodone/APAP 7.5-325 [[place] 7.5 - 325 mg PO TID PRN #12 tab 11/14/21 Unknown Rx 7.5-325 mg TAB] Ondansetron [Zofran ODT TAB] 4 mg PO QDAY PRN #30 tab 11/14/21 Unknown Rx Pantoprazole [Protonix TAB] 40 mg PO QDAY #30 tab 11/14/21 Unknown Rx levoFLOXacin [Levaquin TAB] 500 mg PO QDAY #5 tablet 11/14/21 Unknown Rx traMADoL [Ultram] 50 mg PO Q6HR PRN #7 tablet 02/02/22 Unknown Rx Acetaminophen [Tylenol Extra 1,000 mg PO BID PRN #30 1000units 02/03/22 Unknown Rx Strength] ED Physical Exam - General Limitations: No Limitations General appearance: alert, in no apparent distress - Head Head exam: Present: atraumatic, normocephalic - Eye Eye exam: Present: PERRL. Absent: scleral icterus, conjunctival injection - ENT ENT exam: Present: mucous membranes moist - Neck Neck exam: Present: normal inspection. Absent: tenderness - Respiratory Respiratory exam: Present: normal lung sounds bilaterally. Absent: respiratory distress, wheezes, rales, rhonchi - Cardiovascular Cardiovascular Exam: Present: regular rate, normal rhythm, normal heart sounds - GI/Abdominal GI/Abdominal exam: Present: soft. Absent: distended, tenderness - Expanded Lower Extremity Exam Left Hip exam: Present: tenderness (To pelvic squeeze and pelvic rock but no instability.). Absent: swelling, abrasion, deformity, crepidus Upper Leg exam: Present: normal inspection. Absent: tenderness Knee exam: Present: tenderness (Anywhere I palpate along her knee. No swelling or effusion.), abrasion (Left infrapatellar area). Absent: swelling, ecchymosis, deformity, crepidus, dislocation, erythema, effusion, pain w/ pronation/supination, posterior draw sign, pain/laxity with valgus, pain/laxity with varus Lower Leg exam: Present: normal inspection (Including leg ankle and foot), full ROM (And strength). Absent: tenderness, swelling, ecchymosis, erythema Neuro vascular tendon exam: Present: no vascular compromise. Absent: pulse deficit, abnormal cap refill, motor deficit, sensory deficit, tendon deficit, extremity cold to touch, pallor Gait: Positive: not tested/not observed, unable to bear weight (Patient is wheelchair-bound) - Back Exam Back exam: Absent: tenderness, CVA tenderness (R), CVA tenderness (L) - Neurological Exam Neurological exam: Present: alert, oriented X3, CN II-XII intact, reflexes normal. Absent: motor sensory deficit - Psychiatric Psychiatric exam: Present: flat affect - Skin Skin exam: Present: warm, dry, normal color, abrasion (2 cm diameter superficial abrasion left infrapatellar area). Absent: cyanosis ED Course Vital Signs 02/03/22 02/03/22 09:57 14:11 Temperature 98.4 F Pulse Rate 90 89 Respiratory 18 18 Rate Blood Pressure 109/77 109/73 [Left] O2 Sat by Pulse 99 99 Oximetry ED Medical Decision Making - Radiology Data Radiology results: report reviewed, [place] [address] XRay Report Signed Patient: SHIVA DENG MR#: [id number] 97 : 1945 Acct:[id number] Age/Sex: 76 / F ADM Date: 02/03/22 Loc: ED Attending Dr: Ordering Physician: ABIGAIL SCHULTE Date of Service: 02/03/22 Procedure(s): XR hip 2-3V LT Accession Number(s): [id number] cc: ABIGAIL SCHULTE Fluoro Time In Minutes: LEFT KNEE 4 VIEWS INDICATION / CLINICAL INFORMATION: Fall from wheelchair downhill with left knee abrasion and pain COMPARISON: None available. FINDINGS: BONES / JOINT(S): There are moderate degenerative changes, most prominent involving the medial tibiofemoral and patellofemoral joint spaces. There is an old healed fracture of the proximal fibular metadiaphysis.. There is no evidence of acute fracture, subluxation or joint effusion. SOFT TISSUES: No significant abnormality. ADDITIONAL FINDINGS: None. IMPRESSION: No acute findings. LEFT HIP 2 VIEWS INDICATION / CLINICAL INFORMATION: Fall from wheelchair downhill with left hip pain and bruising COMPARISON: None available. FINDINGS: BONES / JOINT(S): There is moderately advanced lower lumbar spondylosis. The hip and SI joint spaces are well-maintained. There is no evidence of fracture or subluxation. SOFT TISSUES: No significant abnormality. ADDITIONAL FINDINGS: None. IMPRESSION: No acute findings. Signer Name: Evaristo Scott MD Signed: 02/03/2022 1:47 PM Workstation Name: [id number] Transcribed By: RT Dictated By: Evaristo Scott MD Electronically Authenticated By: Evaristo Scott MD Signed Date/Time: 02/03/221346 DD/ 44 TD/TT: [facility] [address] [place] [address] XRay Report Signed Patient: SHIVA DENG MR#: [id number] [birth year] : 1945 Acct:[id number] Age/Sex: 76 / F ADM Date: 02/03/22 Loc: ED Attending Dr: Ordering Physician: ABIGAIL SCHULTE Date of Service: 02/03/22 Procedure(s): XR knee 4+V LT Accession Number(s): [id number] cc: ABIGAIL SCHULTE Fluoro Time In Minutes: LEFT KNEE 4 VIEWS INDICATION / CLINICAL INFORMATION: Fall from wheelchair downhill with left knee abrasion and pain COMPARISON: None available. FINDINGS: BONES / JOINT(S): There are moderate degenerative changes, most prominent involving the medial tibiofemoral and patellofemoral joint spaces. There is an old healed fracture of the proximal fibular metadiaphysis.. There is no evidence of acute fracture, subluxation or joint effusion. SOFT TISSUES: No significant abnormality. ADDITIONAL FINDINGS: None. IMPRESSION: No acute findings. LEFT HIP 2 VIEWS INDICATION / CLINICAL INFORMATION: Fall from wheelchair downhill with left hip pain and bruising COMPARISON: None available. FINDINGS: BONES / JOINT(S): There is moderately advanced lower lumbar spondylosis. The hip and SI joint spaces are well-maintained. There is no evidence of fracture or subluxation. SOFT TISSUES: No significant abnormality. ADDITIONAL FINDINGS: None. IMPRESSION: No acute findings. Signer Name: Evaristo Scott MD Signed: 02/03/2022 1:47 PM Workstation Name: [id number] Transcribed By: RT Dictated By: Evaristo Scott MD Electronically Authenticated By: Evaristo Scott MD Signed Date/Time: 02/03/22 134 DD/ 134 TD/TT: - Medical Decision Making 76-year-old female who is wheelchair-bound fell out of her wheelchair forward and complains of pain in her left knee and hip. X-rays negative for acute fracture. Patient seen here yesterday for a different pain complaint and was given tramadol which she has not filled yet. Recommend that she fill this for her knee pain. Will cleanse and dress her wound and give her wound care instructions. Discharge blood pressure 109/73 pulse 89, pulse oximetry 99%, temperature 98.2, respirations 18. - Differential Diagnosis Knee contusion with abrasion. Rule out fracture. Hip strain rule out [facility] Critical care attestation.: If time is entered above; I have spent that time in minutes in the direct care of this critically ill patient, excluding procedure time. ED Disposition Clinical Impression: Knee contusion, Knee abrasion, Hip strain, Fall from wheelchair Disposition: 01 HOME / SELF CARE / HOMELESS Is pt being admited?: No Condition: Stable Instructions: Contusion, Muscle Strain, Abrasion, [id number] Additional Instructions: Fill your tramadol prescription. Wound care: Cleanse and dress twice daily with warm soapy water and replace dressing. Follow-up with your primary care doctor (referral below if you do not have one). Return if worse. Referrals: ZHOU CARRANZA MD [Staff Physician] - 3-5 Days Time of Disposition: 14:19
--- NOTE | 2022-02-03 13:51 | XRay Report ---
LEFT KNEE 4 VIEWS INDICATION / CLINICAL INFORMATION: Fall from wheelchair downhill with left knee abrasion and pain COMPARISON: None available. FINDINGS: BONES / JOINT(S): There are moderate degenerative changes, most prominent involving the medial tibiof emoral and patellofemoral joint spaces. There is an old healed fracture of the proximal fibular metad iaphysis.. There is no evidence of acute fracture, subluxation or joint effusion. SOFT TISSUES: No significant abnormality. ADDITIONAL FINDINGS: None. IMPRESSION: No acute findings. LEFT HIP 2 VIEWS INDICATION / CLINICAL INFORMATION: Fall from wheelchair downhill with left hip pain and bruising COMPARISON: None available. FINDINGS: BONES / JOINT(S): There is moderately advanced lower lumbar spondylosis. The hip and SI joint spaces are well-maintained. There is no evidence of fracture or subluxation. SOFT TISSUES: No significant abnormality. ADDITIONAL FINDINGS: None. IMPRESSION: No acute findings. Signer Name: Evaristo Scott MD Signed: 02/03/2022 1:47 PM Workstation Name: [email or web address]
[2022-02-03 14:13] VITALS: BP 109/73
== END 2022-02-03 15:05 | disposition home or self-care (01) ==
LOC: ED 09:29
DX: S80.02XA Contusion of left knee, initial encounter (principal); S76.012A Strain of muscle, fascia and tendon of left hip, initial encounter; I10 Essential (primary) hypertension; K21.9 Gastro-esophageal reflux disease without esophagitis; J45.909 Unspecified asthma, uncomplicated; Z90.49 Acquired absence of other specified parts of digestive tract; Z91.09 Other allergy status, other than to drugs and biological substances; Z53.21 Procedure and treatment not carried out due to patient leaving prior to being seen by health care provider
CPT/HCPCS: 99283

== ENCOUNTER 2022-02-06 19:52 | Inpatient (IN) | payer MEDICARE ==
[2022-02-06] MEDS ORDERED: ACETAMINOPHEN 325 MG TAB PO ONE (21:34)
[2022-02-06] MEDS ORDERED: SODIUM CHLORIDE 0.9% 1000 ML 1,000 ML IV ONE (21:34)
[2022-02-06 22:06] LABS: Basophils % (Auto) 0.4 % (0.0-1.8); Eosinophils % (Auto) 0.1 % (0.0-4.3); Hematocrit 35.4 % (30.3-42.9); Hemoglobin 10.9 gm/dl (10.1-14.3); Lymphocytes # (Auto) 1.4 K/mm3 (1.2-5.4); Lymphocytes % (Auto) 16.8 % (13.4-35.0); Mean Corpuscular HGB Conc 31 % (30-34); Mean Corpuscular Volume 81 fl (79-97); Monocytes # (Auto) 0.8 K/mm3 (0.0-0.8); Monocytes % (Auto) 8.8 % (0.0-7.3); Platelet Count 233 K/mm3 (140-440); Red Blood Count 4.37 M/mm3 (3.65-5.03); Red Cell Distribution Width 18.6 % (13.2-15.2)
[2022-02-06 22:23] LABS: Alanine Aminotransferase 11 units/L (7-56); Albumin 4.3 g/dL (3.9-5); BUN/Creatinine Ratio 24; Blood Urea Nitrogen 22 mg/dL (7-17); Calcium 9.3 mg/dL (8.4-10.2); Hemolysis Index 30
--- NOTE | 2022-02-06 22:36 | XRay Report ---
CHEST 1 VIEW 02/06/2022 9:40 PM INDICATION / CLINICAL INFORMATION: Weakness. COMPARISON: 11/11/2021 FINDINGS: SUPPORT DEVICES: None. HEART / MEDIASTINUM: No significant abnormality. LUNGS / PLEURA: Mild residual patchy airspace opacities throughout the lungs which may represent mild residual infectious process No pneumothorax. ADDITIONAL FINDINGS: No significant additional findings. IMPRESSION: 1. Mild residual patchy airspace opacities throughout the lungs which may represent residual infectio us process. Signer Name: David Santana DO Signed: 02/06/2022 10:31 PM Workstation Name: [id number]
[2022-02-06] MEDS ORDERED: cefTRIAXone/NS 1 GM/50 ML 1 GM/50 ML BAG IV ONE (23:37)
--- NOTE | 2022-02-07 03:18 | Emergency Department Report ---
ED General Adult HPI - General Chief complaint: Weakness Stated complaint: WEAKNESS PUI?: No Time Seen by Provider: 02/06/22 21:22 Source: patient, EMS Mode of arrival: Stretcher Limitations: No Limitations - History of Present Illness Initial comments: 76 years old with history of pneumonia AUNG and HTN , here today for fever we aknes and malaise , vaccinated against covid but no booster -: Gradual, days(s) Severity scale (0 -10): 0 Associated Symptoms: confusion, chest pain, cough. denies: denies other symptoms, headaches, loss of appetite Treatments Prior to Arrival: none - Related Data Home Medications Medication Instructions Recorded Confirmed Last Taken Dicyclomine [Bentyl] 20 mg PO TID PRN 11/12/21 11/12/21 Unknown Fluticasone [Flonase] 1 spray NS QDAY 11/12/21 11/12/21 Unknown Gabapentin [Neurontin] 600 mg PO QDAY 11/12/21 11/12/21 Unknown PARoxetine [Paxil] 20 mg PO QDAY 11/12/21 11/12/21 Unknown QUEtiapine [SEROquel] 100 mg PO QHS 11/12/21 11/12/21 Unknown amLODIPine 5 mg PO DAILY 11/12/21 11/12/21 Unknown rOPINIRole (NF) [Requip (Nf)] 0.5 mg PO QHS 11/12/21 11/12/21 Unknown Previous Rx's Medication Instructions Recorded Last Taken Type Furosemide [Lasix] 20 mg PO QDAY #10 tablet 11/14/21 Unknown Rx HYDROcodone/APAP 7.5-325 [[place] 7.5 - 325 mg PO TID PRN #12 tab 11/14/21 Unknown Rx 7.5-325 mg TAB] Ondansetron [Zofran ODT TAB] 4 mg PO QDAY PRN #30 tab 11/14/21 Unknown Rx Pantoprazole [Protonix TAB] 40 mg PO QDAY #30 tab 11/14/21 Unknown Rx levoFLOXacin [Levaquin TAB] 500 mg PO QDAY #5 tablet 11/14/21 Unknown Rx traMADoL [Ultram] 50 mg PO Q6HR PRN #7 tablet 02/02/22 Unknown Rx Acetaminophen [Tylenol Extra 1,000 mg PO BID PRN #30 1000units 02/03/22 Unknown Rx Strength] Allergies Allergy/AdvReac Type Severity Reaction Status Date / Time tetracycline Allergy Unknown Verified 01/31/22 18:09 ED Review of Systems ROS: Stated complaint: WEAKNESS Other details as noted in HPI Constitutional: denies: chills, fever Eyes: denies: eye pain, eye discharge, vision change ENT: denies: ear pain, throat pain Respiratory: denies: cough, shortness of breath, wheezing Cardiovascular: denies: chest pain, palpitations Endocrine: no symptoms reported Gastrointestinal: denies: abdominal pain, nausea, diarrhea Genitourinary: denies: urgency, dysuria, discharge Musculoskeletal: denies: back pain, joint swelling, arthralgia Skin: denies: rash, lesions Neurological: denies: headache, weakness, paresthesias Psychiatric: denies: anxiety, depression Hematological/Lymphatic: denies: easy bleeding, easy bruising ED Past Medical Hx - Past Medical History Hx Hypertension: Yes Hx GERD: Yes Hx Asthma: Yes Hx COPD: Yes - Surgical History Hx Cholecystectomy: Yes Additional Surgical History: Right ankle fracture repair - Social History Smoking Status: Unknown if ever smoked (But does not smoke now) Substance Use Type: None - Medications Home Medications: Home Medications Medication Instructions Recorded Confirmed Last Taken Type Dicyclomine [Bentyl] 20 mg PO TID PRN 11/12/21 11/12/21 Unknown History Fluticasone [Flonase] 1 spray NS QDAY 11/12/21 11/12/21 Unknown History Gabapentin [Neurontin] 600 mg PO QDAY 11/12/21 11/12/21 Unknown History PARoxetine [Paxil] 20 mg PO QDAY 11/12/21 11/12/21 Unknown History QUEtiapine [SEROquel] 100 mg PO QHS 11/12/21 11/12/21 Unknown History amLODIPine 5 mg PO DAILY 11/12/21 11/12/21 Unknown History rOPINIRole (NF) [Requip (Nf)] 0.5 mg PO QHS 11/12/21 11/12/21 Unknown History Furosemide [Lasix] 20 mg PO QDAY #10 tablet 11/14/21 Unknown Rx HYDROcodone/APAP 7.5-325 [[place] 7.5 - 325 mg PO TID PRN #12 tab 11/14/21 U nknown Rx 7.5-325 mg TAB] Ondansetron [Zofran ODT TAB] 4 mg PO QDAY PRN #30 tab 11/14/21 Unknown Rx Pantoprazole [Protonix TAB] 40 mg PO QDAY #30 tab 11/14/21 Unknown Rx levoFLOXacin [Levaquin TAB] 500 mg PO QDAY #5 tablet 11/14/21 Unknown Rx traMADoL [Ultram] 50 mg PO Q6HR PRN #7 tablet 02/02/22 Unknown Rx Acetaminophen [Tylenol Extra 1,000 mg PO BID PRN #30 1000units 02/03/22 Unknown Rx Strength] ED Physical Exam - General Limitations: No Limitations General appearance: alert, in no apparent distress - Head Head exam: Present: atraumatic, normocephalic - Eye Eye exam: Present: normal appearance - ENT ENT exam: Present: mucous membranes moist - Neck Neck exam: Present: normal inspection - Respiratory Respiratory exam: Present: normal lung sounds bilaterally. Absent: respiratory distress - Cardiovascular Cardiovascular Exam: Present: regular rate, normal rhythm. Absent: systolic murmur, diastolic murmur, rubs, gallop - GI/Abdominal GI/Abdominal exam: Present: soft, normal bowel sounds - Extremities Exam Extremities exam: Present: normal inspection - Back Exam Back exam: Present: normal inspection - Neurological Exam Neurological exam: Present: alert, oriented X3 - Psychiatric Psychiatric exam: Present: normal affect, normal mood - Skin Skin exam: Present: warm, dry, intact, normal color. Absent: rash ED Course Vital Signs 02/06/22 02/06/22 02/06/22 19:58 20:44 20:45 Temperature 101.5 F H 100.0 F H Pulse Rate 94 H 90 Respiratory 16 20 Rate Blood Pressure 126/82 159/76 [Right] O2 Sat by Pulse 97 99 100 Oximetry ED Medical Decision Making - Lab Data Result diagrams: 02/06/22 21:56 02/06/22 21:56 - Radiology Data Radiology results: report reviewed, image reviewed - Medical Decision Making work up shwoed elevqted bun, x ray showed pneumonia lactic and culture abx given, will admit Critical care attestation.: If time is entered above; I have spent that time in minutes in the direct care of this critically ill patient, excluding procedure time. ED Disposition Clinical Impression: Pneumonia, Fever Disposition: HOME / SELF CARE / HOMELESS Is pt being admited?: Yes Does the pt Need Aspirin: No Condition: Stable Instructions: Bacterial Pneumonia (ED) Referrals: MARGARET LOPEZ MD [Primary Care Provider] - 3-5 Days
[2022-02-07] MEDS ORDERED: MORPHINE 2 MG/1 ML INJ IV PRN (04:07)
[2022-02-07] MEDS ORDERED: ONDANSETRON 4 MG/2 ML INJ IV PRN (04:07)
[2022-02-07] MEDS ORDERED: ALBUTEROL 2.5 MG/3 ML NEBU IH PRN (04:07)
[2022-02-07] MEDS ORDERED: MORPHINE 4 MG/1 ML INJ IV PRN (04:07)
[2022-02-07] MEDS ORDERED: DICYCLOMINE 20 MG TAB PO PRN (04:09)
--- NOTE | 2022-02-07 04:15 | History and Physical Report ---
History of Present Illness Date of examination: 02/07/22 Date of admission: 02/07/22 Chief complaint: Fever Weakness Malaise History of present illness: 76 years old with history of pneumonia ,AUNG and HTN was brought to the emergency room because of fever weaknes and malaise .patient temperature is 1 1.5 F. Vaccinated against covid but no booster. In the emergency room chest x-ray shows mild residual patchy airspace opacities throughout the lungs which may represent residual infectious process. So we are going to admit the patient we will put the patient on IV antibiotic neb treatment we will do the blood cultures sputum culture Past History Past Medical History: hypertension, renal failure Past Surgical History: cholecystectomy, Other (Right ankle fracture repair) Social history: no significant social history Family history: hypertension Medications and Allergies Allergies Allergy/AdvReac Type Severity Reaction Status Date / Time tetracycline Allergy Unknown Verified 01/31/22 18:09 Home Medications Medication Instructions Recorded Confirmed Last Taken Type Dicyclomine [Bentyl] 20 mg PO TID PRN 11/12/21 11/12/21 Unknown History Fluticasone [Flonase] 1 spray NS QDAY 11/12/21 11/12/21 Unknown History Gabapentin [Neurontin] 600 mg PO QDAY 11/12/21 11/12/21 Unknown History PARoxetine [Paxil] 20 mg PO QDAY 11/12/21 11/12/21 Unknown History QUEtiapine [SEROquel] 100 mg PO QHS 11/12/21 11/12/21 Unknown History amLODIPine 5 mg PO DAILY 11/12/21 11/12/21 Unknown History rOPINIRole (NF) [Requip (Nf)] 0.5 mg PO QHS 11/12/21 11/12/21 Unknown History Furosemide [Lasix] 20 mg PO QDAY #10 tablet 11/14/21 Unknown Rx HYDROcodone/APAP 7.5-325 [[place] 7.5 - 325 mg PO TID PRN #12 tab 11/14/21 Unknown Rx 7.5-325 mg TAB] Ondansetron [Zofran ODT TAB] 4 mg PO QDAY PRN #30 tab 11/14/21 Unknown Rx Pantoprazole [Protonix TAB] 40 mg PO QDAY #30 tab 11/14/21 Unknown Rx levoFLOXacin [Levaquin TAB] 500 mg PO QDAY #5 tablet 11/14/21 Unknown Rx traMADoL [Ultram] 50 mg PO Q6HR PRN #7 tablet 02/02/22 Unknown Rx Acetaminophen [Tylenol Extra 1,000 mg PO BID PRN #30 1000units 02/03/22 Unknown Rx Strength] Review of Systems All systems: negative Constitutional: fever, weakness, malaise Exam - Constitutional Vitals: Temp Pulse Resp BP Pulse Ox 100.0 F H 90 20 159/76 100 02/06/22 20:44 02/06/22 20:44 02/06/22 20:44 02/06/22 20:44 02/06/22 20:45 General appearance: Present: no acute distress, well-nourished - EENT Eyes: Present: PERRL ENT: hearing intact, clear oral mucosa - Neck Neck: Present: supple, normal ROM - Respiratory Respiratory effort: normal Respiratory: bilateral: CTA - Cardiovascular Heart Sounds: Present: S1 & S2. Absent: rub, click - Extremities Extremities: pulses symmetrical, No edema Peripheral Pulses: within normal limits - Abdominal General gastrointestinal: Present: soft, non-tender, non-distended, normal bowel sounds Female genitourinary: Present: normal - Integumentary Integumentary: Present: clear, warm, dry - Musculoskeletal Musculoskeletal: gait normal, strength equal bilaterally - Psychiatric Psychiatric: appropriate mood/affect, intact judgment & insight - Neurologic Neurologic: CNII-XII intact, moves all extremities HEART Score - HEART Score Troponin: Troponin T < 0.010 ng/mL (0.00-0.029) 02/06/22 21:56 Results - Labs CBC & Chem 7: 02/06/22 21:56 02/06/22 21:56 Labs: Laboratory Last Values WBC 8.5 K/mm3 (4.5-11.0) 02/06/22 21:56 RBC 4.37 M/mm3 (3.65-5.03) 02/06/22 21:56 Hgb 10.9 gm/dl (10.1-14.3) 02/06/22 21:56 Hct 35.4 % (30.3-42.9) 02/06/22 21:56 MCV 81 fl (79-97) 02/06/22 21:56 MCH 25 pg (28-32) L 02/06/22 21:56 MCHC 31 % (30-34) 02/06/22 21:56 RDW 18.6 % (13.2-15.2) H 02/06/22 21:56 Plt Count 233 K/mm3 (140-440) 02/06/22 21:56 Lymph % (Auto) 16.8 % (13.4-35.0) 02/06/22 21:56 [place] % (Auto) 8.8 % (0.0-7.3) H 02/06/22 21:56 Eos % (Auto) 0.1 % (0.0-4.3) 02/06/22 21:56 Baso % (Auto) 0.4 % (0.0-1.8) 02/06/22 21:56 Lymph # (Auto) 1.4 K/mm3 (1.2-5.4) 02/06/22 21:56 [place] # (Auto) 0.8 K/mm3 (0.0-0.8) 02/06/22 21:56 Eos # (Auto) 0.0 K/mm3 (0.0-0.4) 02/06/22 21:56 Baso # (Auto) 0.0 K/mm3 (0.0-0.1) 02/06/22 21:56 Seg Neutrophils % 73.9 % (40.0-70.0) H 02/06/22 21:56 Seg Neutrophils # 6.3 K/mm3 (1.8-7.7) 02/06/22 21:56 Sodium 132 mmol/L (137-145) L 02/06/22 21:56 Potassium 4.3 mmol/L (3.6-5.0) 02/06/22 21:56 Chloride 91.4 mmol/L (98-107) L 02/06/22 21:56 Carbon Dioxide 27 mmol/L (22-30) 02/06/22 21:56 Anion Gap 18 mmol/L 02/06/22 21:56 BUN 22 mg/dL (7-17) H 02/06/22 21:56 Creatinine 0.9 mg/dL (0.6-1.2) 02/06/22 21:56 Estimated GFR > 60 ml/min 02/06/22 21:56 BUN/Creatinine Ratio 24 % 09/19/22 21:56 Glucose 115 mg/dL (65-100) H 02/06/22 21:56 Lactic Acid 1.30 mmol/L (0.7-2.0) 02/06/22 21:56 Calcium 9.3 mg/dL (8.4-10.2) 02/06/22 21:56 Total Bilirubin 0.30 mg/dL (0.1-1.2) 02/06/22 21:56 AST 25 units/L (5-40) 02/06/22 21:56 ALT 11 units/L (7-56) 02/06/22 21:56 Alkaline Phosphatase 73 units/L (35-129) 02/06/22 21:56 Total Creatine Kinase 42 units/L (30-135) 02/06/22 21:56 Troponin T < 0.010 ng/mL (0.00-0.029) 02/06/22 21:56 Total Protein 7.0 g/dL (6.3-8.2) 02/06/22 21:56 Albumin 4.3 g/dL (3.9-5) 02/06/22 21:56 Albumin/Globulin Ratio 1.6 % 02/06/22 21:56 - Imaging and Cardiology Chest x-ray: report reviewed Assessment and Plan VTE prophylaxis?: Chemical Plan of care discussed with patient/family: Yes - Patient Problems (1) Pneumonia Current Visit: Yes Status: Acute Plan to address problem: Admit the patient to the medical telemetry. Oxygen via nasal cannula 3 to permit. DuoNeb by nebulizer every 4 hours. Albuterol via nebulizer every 4 hours as needed. Rocephin 2 g IV daily. Zithromax 500 mg p.o. daily. We will do the blood cultures sputum culture. Recheck CBC in the morning (2) Fever Current Visit: Yes Status: Acute Plan to address problem: Tylenol 650 mg p.o. every 6 hours as needed. Rocephin 2 g IV daily. Zithromax 500 mg p.o. daily. We will do the blood cultures sputum culture. Recheck CBC in the morning (3) Hypertension Current Visit: Yes Status: Acute Plan to address problem: Hydralazine 10 mg IV every 6 hours as needed. Amlodipine 5 mg p.o. daily. We continue the home medication (4) AUNG (acute kidney injury) Current Visit: No Status: Acute Plan to address problem: Avoid nephrotoxic drug. Renally dose medication. We recheck the BMP in the morning (5) COPD (chronic obstructive pulmonary disease) Current Visit: No Status: Chronic Plan to address problem: Oxygen via nasal cannula 3 to permit. DuoNeb by nebulizer every 4 hours. Albuterol via nebulizer every 4 hours as needed. (6) DVT prophylaxis Current Visit: No Status: Acute Plan to address problem: Heparin 5000 units subcu every 12 hours for DVT prophylaxis. Pepcid 20 mg p.o. twice daily for GI prophylaxis. Patient is a full code
--- NOTE | 2022-02-07 09:34 | Electrocardiograph Report ---
[facility] Test Date: 2022-02-06 Test Time: 23:23:56 Pat Name: SHIVA DENG Department: Room: A483 1 Gender: F Oracle Specialist: FREIDA : 1945 Requested By: SUN FISHER Order Number: [id number] Reading MD: Celso Mott Measurements Intervals [place] Rate: 90 P: 39 IN: 132 QRS: -5 QRSD: 98 T: 63 QT: 415 QTc: 503 Interpretive Statements Sinus rhythm Atrial premature complexes Probable left atrial enlargement Probable left ventricular hypertrophy Compared to ECG 11/13/2021 08:01:33 Atrial premature complex(es) now present t Ectopic atrial tachycardia, multifocal no longer present Electronically Signed On 02-07-2022 9:33:59 EDT by Celso Mott
[2022-02-07] MEDS: IPRATROPIUM/ALBUTEROL SULFATE 3 ML AMPUL.NEB IH SCH ×3 (09:45→22:15)
[2022-02-07] MEDS: cefTRIAXone/NS 2 GM/100 ML 2 GM/100 ML BAG IV SCH (17:05)
[2022-02-07] MEDS: GABAPENTIN 300 MG CAP PO SCH (17:10)
[2022-02-07] MEDS: FAMOTIDINE 20 MG TAB PO SCH ×2 (17:11→22:27)
[2022-02-07] MEDS: PARoxetine 20 MG TAB PO SCH (17:11)
[2022-02-07] MEDS: FUROSEMIDE 20 MG TAB PO SCH (17:11)
[2022-02-07] MEDS: AZITHROMYCIN 250 MG TAB PO SCH (17:12)
[2022-02-07] MEDS: amLODIPine 5 MG TAB PO SCH (17:13)
[2022-02-07] MEDS: HEPARIN 5,000 UNIT/1 ML VIAL SUB-Q SCH ×2 (17:14→22:27)
--- NOTE | 2022-02-07 20:48 | Event Note ---
Date: 02/07/22 Patient was admitted early this morning with the following diagnosis I have seen and examined the patient reviewed the patient's records Agree with the current management Management for the following diagnosis --Pneumonia Admit the patient to the medical telemetry. Oxygen via nasal cannula 3 to permit. DuoNeb by nebulizer every 4 hours. Albuterol via nebulizer every 4 hours as needed. Rocephin 2 g IV daily. Zithromax 500 mg p.o. daily. We will do the blood cultures sputum culture. Recheck CBC in the morning -- Fever Tylenol 650 mg p.o. every 6 hours as needed. Rocephin 2 g IV daily. Zithromax 500 mg p.o. --Hypertension Hydralazine 10 mg IV every 6 hours as needed. Amlodipine 5 mg p.o. daily. We continue the home medication -- AUNG (acute kidney injury) vasomotor nephropathy POA Avoid nephrotoxic drug. Renally dose medication. We recheck the BMP in the morning --History of COPD (chronic obstructive pulmonary disease) Oxygen via nasal cannula 3 to permit. DuoNeb by nebulizer every 4 hours. Albuterol via nebulizer every 4 hours as needed. --DVT prophylaxis: Heparin 5000 units subcu every 12 hours for DVT prophylaxis. Pepcid 20 mg p.o. twice daily for GI prophylaxis. Patient is a full code DC planning: Continue current management Closely monitor the patient and adjust management as needed Plan of care reviewed with patient and her nurse
[2022-02-07] MEDS: QUEtiapine 100 MG TAB PO SCH (22:27)
[2022-02-08 06:28] LABS: Basophils % (Auto) 0.3 % (0.0-1.8); Eosinophils # (Auto) 0.1 K/mm3 (0.0-0.4); Eosinophils % (Auto) 1.3 % (0.0-4.3); Hemoglobin 11.8 gm/dl (10.1-14.3); Lymphocytes # (Auto) 2.2 K/mm3 (1.2-5.4); Lymphocytes % (Auto) 44.6 % (13.4-35.0); Mean Corpuscular HGB Conc 32 % (30-34); Mean Corpuscular Volume 80 fl (79-97); Monocytes # (Auto) 0.6 K/mm3 (0.0-0.8); Monocytes % (Auto) 11.1 % (0.0-7.3); Platelet Count 199 K/mm3 (140-440); Red Blood Count 4.61 M/mm3 (3.65-5.03); Red Cell Distribution Width 18.5 % (13.2-15.2)
[2022-02-08 06:46] LABS: BUN/Creatinine Ratio 20; Blood Urea Nitrogen 16 mg/dL (7-17); Calcium 8.8 mg/dL (8.4-10.2); Hemolysis Index 7
[2022-02-08] MEDS: IPRATROPIUM/ALBUTEROL SULFATE 3 ML AMPUL.NEB IH SCH ×3 (09:41→21:03)
--- NOTE | 2022-02-08 09:53 | Progress Note ---
Assessment and Plan Assessment and plan: Date: 02/07/22 Patient was admitted early this morning with the following diagnosis I have seen and examined the patient reviewed the patient's records Agree with the current management (1) possible gram-negative pneumonia Oxygen via nasal cannula 3 to permit. Rocephin 2 g IV daily. Zithromax 500 mg p.o. daily. Follow blood cultures, titrate O2 sats to more than 90% Supportive care (2) Fever; probably due to pneumonia Tylenol 650 mg p.o. every 6 hours as needed. Rocephin 2 g IV daily. Zithromax 500 mg p.o. daily. We will do the blood cultures sputum culture. Closely monitor (3) Hypertension Hydralazine 10 mg IV every 6 hours as needed. Amlodipine 5 mg p.o. daily. We continue the home medication (4) AUNG (acute kidney injury) present on admission Due to vasomotor nephropathy Follow renal function, gentle hydration, avoid nephrotoxins, AUNG resolved (5) COPD (chronic obstructive pulmonary disease) chronic Oxygen via nasal cannula 3 to permit. DuoNeb by nebulizer every 4 hours. Albuterol via nebulizer every 4 hours as needed. Home oxygen evaluation prior to discharge (6) DVT prophylaxis Heparin 5000 units subcu every 12 hours for DVT prophylaxis. Pepcid 20 mg p.o. twice daily for GI prophylaxis. --full code status Closely monitor the patient and adjust management as needed DC planning per case management; possible SNF placement Follow-up PT OT evaluation recommendations History Interval history: Seen and examined the patient at the bedside Patient's chart and medications reviewed Patient feels slightly better On IV antibiotics for possible gram-negative pneumonia Vital signs noted Hospitalist Physical - Constitutional Vitals: Temp Pulse Resp BP Pulse Ox 97.6 F 64 18 126/64 99 02/08/22 07:48 02/08/22 07:48 02/08/22 07:48 02/08/22 07:48 02/08/22 07:48 General appearance: Present: no acute distress, well-nourished - EENT Eyes: Present: PERRL, EOM intact - Neck Neck: Present: supple, normal ROM - Respiratory Respiratory effort: normal Respiratory: bilateral: diminished, negative: rales, rhonchi, wheezing - Cardiovascular Rhythm: regular Heart Sounds: Present: S1 & S2 - Extremities Extremities: no ischemia, No edema - Abdominal General gastrointestinal: soft, non-tender, non-distended, normal bowel sounds - Integumentary Integumentary: Present: clear, warm - Psychiatric Psychiatric: appropriate mood/affect, cooperative - Neurologic Neurologic: CNII-XII intact, moves all extremities HEART Score - HEART Score Troponin: Troponin T < 0.010 ng/mL (0.00-0.029) 02/06/22 21:56 Results - Labs CBC & Chem 7: 02/08/22 06:04 02/08/22 06:04 Labs: Laboratory Last Values WBC 5.0 K/mm3 (4.5-11.0) 02/08/22 06:04 RBC 4.61 M/mm3 (3.65-5.03) 02/08/22 06:04 Hgb 11.8 gm/dl (10.1-14.3) 02/08/22 06:04 Hct 37.0 % (30.3-42.9) 02/08/22 06:04 MCV 80 fl (79-97) 02/08/22 06:04 MCH 26 pg (28-32) L 02/08/22 06:04 MCHC 32 % (30-34) 02/08/22 06:04 RDW 18.5 % (13.2-15.2) H 02/08/22 06:04 Plt Count 199 K/mm3 (140-440) 02/08/22 06:04 Lymph % (Auto) 44.6 % (13.4-35.0) H 02/08/22 06:04 [place] % (Auto) 11.1 % (0.0-7.3) H 02/08/22 06:04 Eos % (Auto) 1.3 % (0.0-4.3) 02/08/22 06:04 Baso % (Auto) 0.3 % (0.0-1.8) 02/08/22 06:04 Lymph # (Auto) 2.2 K/mm3 (1.2-5.4) 02/08/22 06:04 [place] # (Auto) 0.6 K/mm3 (0.0-0.8) 02/08/22 06:04 Eos # (Auto) 0.1 K/mm3 (0.0-0.4) 02/08/22 06:04 Baso # (Auto) 0.0 K/mm3 (0.0-0.1) 02/08/22 06:04 Seg Neutrophils % 42.7 % (40.0-70.0) 02/08/22 06:04 Seg Neutrophils # 2.1 K/mm3 (1.8-7.7) 02/08/22 06:04 Sodium 133 mmol/L (137-145) L 02/08/22 06:04 Potassium 3.9 mmol/L (3.6-5.0) 02/08/22 06:04 Chloride 93.5 mmol/L (98-107) L 02/08/22 06:04 Carbon Dioxide 28 mmol/L (22-30) 02/08/22 06:04 Anion Gap 15 mmol/L 02/08/22 06:04 BUN 16 mg/dL (7-17) 02/08/22 06:04 Creatinine 0.8 mg/dL (0.6-1.2) 02/08/22 06:04 Estimated GFR > 60 ml/min 02/08/22 06:04 BUN/Creatinine Ratio 20 % 02/08/22 06:04 Glucose 96 mg/dL (65-100) 02/08/22 06:04 POC Glucose 114 mg/dL (70-105) H 02/08/22 07:48 Lactic Acid 1.30 mmol/L (0.7-2.0) 02/06/22 21:56 Calcium 8.8 mg/dL (8.4-10.2) 02/08/22 06:04 Total Bilirubin 0.30 mg/dL (0.1-1.2) 02/06/22 21:56 AST 25 units/L (5-40) 02/06/22 21:56 ALT 11 units/L (7-56) 02/06/22 21:56 Alkaline Phosphatase 73 units/L (35-129) 02/06/22 21:56 Total Creatine Kinase 42 units/L (30-135) 02/06/22 21:56 Troponin T < 0.010 ng/mL (0.00-0.029) 02/06/22 21:56 Total Protein 7.0 g/dL (6.3-8.2) 02/06/22 21:56 Albumin 4.3 g/dL (3.9-5) 02/06/22 21:56 Albumin/Globulin Ratio 1.6 % 02/06/22 21:56 [place]/IV: Voiding Method External Female Catheter Active Medications - Current Medications Current Medications: Generic Name Dose Route Start Last Admin Trade Name Freq PRN Reason Stop Dose Admin Acetaminophen 650 mg 02/07/22 04:07 Acetaminophen 325 Mg Tab PO Q4H PRN Pain MILD(1-3)/Fever >100.5/MAYA Albuterol 2.5 mg 02/07/22 04:07 Albuterol 2.5 Mg/3 Ml Nebu IH Q3HRT PRN Shortness Of Breath Albuterol/Ipratropium 1 ampul 02/08/22 08:00 02/08/22 09:41 Ipratropium/Albuterol Sulfate 3 Ml Ampul.Neb IH Not Given TIDRT LORNE Amlodipine Besylate 5 mg 02/07/22 10:00 02/07/22 17:13 Amlodipine 5 Mg Tab PO 5 mg DAILY LORNE Administration Azithromycin 500 mg 02/07/22 10:00 02/07/22 17:12 Azithromycin 250 Mg Tab PO 500 mg QDAY LORNE Administration Protocol Dicyclomine HCl 20 mg 02/07/22 04:09 Dicyclomine 20 Mg Tab PO TID PRN BOWEL Famotidine 20 mg 02/07/22 10:00 02/07/22 22:27 Famotidine 20 Mg Tab PO 20 mg BID LORNE Administration Fluticasone Propionate 50 mcg 02/07/22 10:00 Fluticasone Propionate Nasal [place] 16 Gm NS QDAY LORNE Furosemide 20 mg 02/07/22 10:00 02/07/22 17:11 Furosemide 20 Mg Tab PO 20 mg QDAY LORNE Administration Gabapentin 600 mg 02/07/22 10:00 02/07/22 17:10 Gabapentin 300 Mg Cap PO 600 mg QDAY LORNE Administration Heparin Sodium (Porcine) 5,000 unit 02/07/22 10:00 02/07/22 22:27 Heparin 5,000 Unit/1 Ml Vial SUB-Q 5,000 unit Q12HR LORNE Administration Ceftriaxone Sodium 2 gm in 100 mls @ 200 mls/hr 02/07/22 10:00 02/07/22 17:05 Rocephin/Ns 2 Gm/100 Ml IV 200 mls/hr Q24HR LORNE Administration Protocol Morphine Sulfate 2 mg 02/07/22 04:07 Morphine 2 Mg/1 Ml Inj IV Q4H PRN Pain, Moderate (4-6) Morphine Sulfate 4 mg 02/07/22 04:07 Morphine 4 Mg/1 Ml Inj IV Q4H PRN Pain , Severe (7-10) Ondansetron HCl 4 mg 02/07/22 04:07 Ondansetron 4 Mg/2 Ml Inj IV Q8H PRN Nausea And Vomiting Paroxetine HCl 20 mg 02/07/22 10:00 02/07/22 17:11 Paroxetine 20 Mg Tab PO 20 mg QDAY [place] Administration Quetiapine Fumarate 100 mg 02/07/22 22:00 02/07/22 22:27 Quetiapine 100 Mg Tab PO 100 mg QHS LORNE Administration Sodium Chloride 10 ml 02/07/22 10:00 02/07/22 22:28 Sodium Chloride 0.9% 10 Ml Flush Syringe IV 10 ml BID LORNE Administration Sodium Chloride 10 ml 02/07/22 04:07 Sodium Chloride 0.9% 10 Ml Flush Syringe IV PRN PRN LINE FLUSH
[2022-02-08] MEDS: PARoxetine 20 MG TAB PO SCH (12:52)
[2022-02-08] MEDS: FLUTICASONE PROPIONATE NASAL SPRAY 16 GM NS SCH (13:00)
[2022-02-08] MEDS: cefTRIAXone/NS 2 GM/100 ML 2 GM/100 ML BAG IV SCH (13:56)
[2022-02-08] MEDS: GABAPENTIN 300 MG CAP PO SCH (14:03)
[2022-02-08] MEDS: AZITHROMYCIN 250 MG TAB PO SCH (14:03)
[2022-02-08] MEDS: amLODIPine 5 MG TAB PO SCH (14:04)
[2022-02-08] MEDS: FUROSEMIDE 20 MG TAB PO SCH (14:04)
[2022-02-08] MEDS: FAMOTIDINE 20 MG TAB PO SCH ×2 (14:05→22:04)
[2022-02-08] MEDS: HEPARIN 5,000 UNIT/1 ML VIAL SUB-Q SCH ×2 (14:06→22:04)
[2022-02-08] MEDS: ACETAMINOPHEN 325 MG TAB PO PRN (19:57)
[2022-02-08] MEDS: QUEtiapine 100 MG TAB PO SCH (22:04)
[2022-02-08] MEDS: ALUM-MAG HYDROXIDE-SIMETHICONE 200-200-20MG/5ML ORAL LIQD 30 ML PO PRN (22:08)
[2022-02-09] MEDS: IPRATROPIUM/ALBUTEROL SULFATE 3 ML AMPUL.NEB IH SCH ×3 (09:15→20:59)
--- NOTE | 2022-02-09 09:44 | Progress Note ---
Assessment and Plan Assessment and plan: Patient was admitted early this morning with the following diagnosis I have seen and examined the patient reviewed the patient's records Agree with the current management -- possible gram-negative pneumonia Oxygen via nasal cannula 3 to permit. Rocephin 2 g IV daily. Zithromax 500 mg p.o. daily. Follow blood cultures, titrate O2 sats to more than 90% Supportive care --Fever; probably due to pneumonia Tylenol 650 mg p.o. every 6 hours as needed. Rocephin 2 g IV daily. Zithromax 500 mg p.o. daily. We will do the blood cultures sputum culture. Closely monitor --Hypertension Hydralazine 10 mg IV every 6 hours as needed. Amlodipine 5 mg p.o. daily. We continue the home medication -- AUNG (acute kidney injury) POA Due to vasomotor nephropathy Follow renal function, gentle hydration, avoid nephrotoxins, AUNG resolved --COPD (chronic obstructive pulmonary disease) chronic Oxygen via nasal cannula 3 to permit. DuoNeb by nebulizer every 4 hours. Albuterol via nebulizer every 4 hours as needed. Home oxygen evaluation prior to discharge -- DVT prophylaxis Heparin 5000 units subcu every 12 hours for DVT prophylaxis. Pepcid 20 mg p.o. twice daily for GI prophylaxis. --full code status Closely monitor the patient and adjust management as needed DC planning per case management; possible SNF placement Follow-up PT OT evaluation recommendations PT evaluation noted and appreciated recommend subacute placement Pending placement History Interval history: I have seen and examined the patient at the bedside Patient's chart and medications reviewed Patient feels slightly better No new complaints Vital signs noted Hospitalist Physical - Constitutional Vitals: Temp Pulse Resp BP Pulse Ox 97.9 F 77 18 134/77 90 02/09/22 08:10 02/09/22 08:10 02/09/22 08:00 02/09/22 08:10 02/09/22 09:16 General appearance: Present: no acute distress, well-nourished - EENT Eyes: Present: PERRL, EOM intact - Neck Neck: Present: supple, normal ROM - Respiratory Respiratory effort: normal Respiratory: bilateral: diminished, negative: rales, rhonchi, wheezing - Cardiovascular Rhythm: regular Heart Sounds: Present: S1 & S2 - Extremities Extremities: no ischemia, No edema - Abdominal General gastrointestinal: soft, non-tender, non-distended, normal bowel sounds - Integumentary Integumentary: Present: clear, warm - Psychiatric Psychiatric: appropriate mood/affect, cooperative - Neurologic Neurologic: CNII-XII intact, moves all extremities HEART Score - HEART Score Troponin: Troponin T < 0.010 ng/mL (0.00-0.029) 02/06/22 21:56 Results - Labs CBC & Chem 7: 02/08/22 06:04 02/08/22 06:04 Labs: Laboratory Last Values WBC 5.0 K/mm3 (4.5-11.0) 02/08/22 06:04 RBC 4.61 M/mm3 (3.65-5.03) 02/08/22 06:04 Hgb 11.8 gm/dl (10.1-14.3) 02/08/22 06:04 Hct 37.0 % (30.3-42.9) 02/08/22 06:04 MCV 80 fl (79-97) 02/08/22 06:04 MCH 26 pg (28-32) L 02/08/22 06:04 MCHC 32 % (30-34) 02/08/22 06:04 RDW 18.5 % (13.2-15.2) H 02/08/22 06:04 Plt Count 199 K/mm3 (140-440) 02/08/22 06:04 Lymph % (Auto) 44.6 % (13.4-35.0) H 02/08/22 06:04 [place] % (Auto) 11.1 % (0.0-7.3) H 02/08/22 06:04 Eos % (Auto) 1.3 % (0.0-4.3) 02/08/22 06:04 Baso % (Auto) 0.3 % (0.0-1.8) 02/08/22 06:04 Lymph # (Auto) 2.2 K/mm3 (1.2-5.4) 02/08/22 06:04 [place] # (Auto) 0.6 K/mm3 (0.0-0.8) 02/08/22 06:04 Eos # (Auto) 0.1 K/mm3 (0.0-0.4) 02/08/22 06:04 Baso # (Auto) 0.0 K/mm3 (0.0-0.1) 02/08/22 06:04 Seg Neutrophils % 42.7 % (40.0-70.0) 02/08/22 06:04 Seg Neutrophils # 2.1 K/mm3 (1.8-7.7) 02/08/22 06:04 Sodium 133 mmol/L (137-145) L 02/08/22 06:04 Potassium 3.9 mmol/L (3.6-5.0) 02/08/22 06:04 Chloride 93.5 mmol/L (98-107) L 02/08/22 06:04 Carbon Dioxide 28 mmol/L (22-30) 02/08/22 06:04 Anion Gap 15 mmol/L 02/08/22 06:04 BUN 16 mg/dL (7-17) 02/08/22 06:04 Creatinine 0.8 mg/dL (0.6-1.2) 02/08/22 06:04 Estimated GFR > 60 ml/min 02/08/22 06:04 BUN/Creatinine Ratio 20 % 02/08/22 06:04 Glucose 96 mg/dL (65-100) 02/08/22 06:04 POC Glucose 115 mg/dL (70-105) H 02/08/22 20:30 Lactic Acid 1.30 mmol/L (0.7-2.0) 02/06/22 21:56 Calcium 8.8 mg/dL (8.4-10.2) 02/08/22 06:04 Total Bilirubin 0.30 mg/dL (0.1-1.2) 02/06/22 21:56 AST 25 units/L (5-40) 02/06/22 21:56 ALT 11 units/L (7-56) 02/06/22 21:56 Alkaline Phosphatase 73 units/L (35-129) 02/06/22 21:56 Total Creatine Kinase 42 units/L (30-135) 02/06/22 21:56 Troponin T < 0.010 ng/mL (0.00-0.029) 02/06/22 21:56 Total Protein 7.0 g/dL (6.3-8.2) 02/06/22 21:56 Albumin 4.3 g/dL (3.9-5) 02/06/22 21:56 Albumin/Globulin Ratio 1.6 % 02/06/22 21:56 Microbiology: Microbiology 02/08/22 14:19 Peripheral/Venous Blood Culture - Preliminary Culture in Progress 02/08/22 14:19 Peripheral/Venous Blood Culture - Preliminary Culture in Progress [place]/IV: Voiding Method External Female Catheter Active Medications - Current Medications Current Medications: Generic Name Dose Route Start Last Admin Trade Name Freq PRN Reason Stop Dose Admin Acetaminophen 650 mg 02/07/22 04:07 02/08/22 19:57 Acetaminophen 325 Mg Tab PO 650 mg Q4H PRN Administration Pain MILD(1-3)/Fever >100.5/MAYA Al Hydrox/Mg Hydrox/Simethicone 30 ml 02/08/22 21:53 02/08/22 22:08 Alum-Mag Hydroxide-Simethicone [phone]/[phone] Oral Liqd 30 Ml PO 30 ml Q6HR PRN Administration Indigestion Albuterol 2.5 mg 02/07/22 04:07 Albuterol 2.5 Mg/3 Ml Nebu IH Q3HRT PRN Shortness Of Breath Albuterol/Ipratropium 1 ampul 02/08/22 08:00 02/09/22 09:15 Ipratropium/Albuterol Sulfate 3 Ml Ampul.Neb IH 1 ampul TIDRT LORNE Administration Amlodipine Besylate 5 mg 02/07/22 10:00 02/08/22 14:04 Amlodipine 5 Mg Tab PO 5 mg DAILY LORNE Administration Azithromycin 500 mg 02/07/22 10:00 02/08/22 14:03 Azithromycin 250 Mg Tab PO 500 mg QDAY L[place]NE Administration Protocol Dicyclomine HCl 20 mg 02/07/22 04:09 Dicyclomine 20 Mg Tab PO TID PRN BOWEL Famotidine 20 mg 02/07/22 10:00 02/08/22 22:04 Famotidine 20 Mg Tab PO 20 mg BID LORNE Administration Fluticasone Propionate 50 mcg 02/07/22 10:00 02/08/22 13:00 Fluticasone Propionate Nasal [place] 16 Gm NS Not Given QDAY LORNE Furosemide 20 mg 02/07/22 10:00 02/08/22 14:04 Furosemide 20 Mg Tab PO 20 mg QDAY LORNE Administration Gabapentin 600 mg 02/07/22 10:00 02/08/22 14:03 Gabapentin 300 Mg Cap PO 600 mg QDAY LRONE Administration Heparin Sodium (Porcine) 5,000 unit 02/07/22 10:00 02/08/22 22:04 Heparin 5,000 Unit/1 Ml Vial SUB-Q 5,000 unit Q12HR LORNE Administration Ceftriaxone Sodium 2 gm in 100 mls @ 200 mls/hr 02/07/22 10:00 02/08/22 13:56 Rocephin/Ns 2 Gm/100 Ml IV 200 mls/hr Q24HR LORNE Administration Protocol Morphine Sulfate 2 mg 02/07/22 04:07 Morphine 2 Mg/1 Ml Inj IV Q4H PRN Pain, Moderate (4-6) Morphine Sulfate 4 mg 02/07/22 04:07 Morphine 4 Mg/1 Ml Inj IV Q4H PRN Pain , Severe (7-10) Ondansetron HCl 4 mg 02/07/22 04:07 Ondansetron 4 Mg/2 Ml Inj IV Q8H PRN Nausea And Vomiting Paroxetine HCl 20 mg 02/07/22 10:00 02/08/22 12:52 Paroxetine 20 Mg Tab PO 20 mg QDAY L[place] Administration Quetiapine Fumarate 100 mg 02/07/22 22:00 02/08/22 22:04 Quetiapine 100 Mg Tab PO 100 mg QHS LORNE Administration Sodium Chloride 10 ml 02/07/22 10:00 02/08/22 22:04 Sodium Chloride 0.9% 10 Ml Flush Syringe IV 10 ml BID LORNE Administration Sodium Chloride 10 ml 02/07/22 04:07 Sodium Chloride 0.9% 10 Ml Flush Syringe IV PRN PRN LINE FLUSH
[2022-02-09] MEDS: GABAPENTIN 300 MG CAP PO SCH (11:04)
[2022-02-09] MEDS: FUROSEMIDE 20 MG TAB PO SCH (11:04)
[2022-02-09] MEDS: PARoxetine 20 MG TAB PO SCH (11:04)
[2022-02-09] MEDS: FAMOTIDINE 20 MG TAB PO SCH ×2 (11:04→21:18)
[2022-02-09] MEDS: AZITHROMYCIN 250 MG TAB PO SCH (11:04)
[2022-02-09] MEDS: amLODIPine 5 MG TAB PO SCH (11:05)
[2022-02-09] MEDS: cefTRIAXone/NS 2 GM/100 ML 2 GM/100 ML BAG IV SCH (11:05)
[2022-02-09] MEDS: HEPARIN 5,000 UNIT/1 ML VIAL SUB-Q SCH ×2 (11:05→21:18)
[2022-02-09] MEDS: ACETAMINOPHEN 325 MG TAB PO PRN (18:50)
[2022-02-09] MEDS: QUEtiapine 100 MG TAB PO SCH (21:18)
--- NOTE | 2022-02-10 09:32 | Progress Note ---
Assessment and Plan Assessment and plan: Assessment and plan: rae was admitted early this morning with the following diagnosis I have seen and examined the patient reviewed the patient's records Agree with the current management --possible gram-negative pneumonia Oxygen via nasal cannula 3 to permit. Rocephin 2 g IV daily. Zithromax 500 mg p.o. daily. Follow blood cultures, titrate O2 sats to more than 90% Supportive care --Fever; probably due to pneumonia Tylenol 650 mg p.o. every 6 hours as needed. Rocephin 2 g IV daily. Zithromax 500 mg p.o. daily. We will do the blood cultures sputum culture. Closely monitor --Hypertension Hydralazine 10 mg IV every 6 hours as needed. Amlodipine 5 mg p.o. daily. We continue the home medication -- AUNG (acute kidney injury) present on admission Due to vasomotor nephropathy Follow renal function, gentle hydration, avoid nephrotoxins, AUNG resolved --COPD (chronic obstructive pulmonary disease) chronic Oxygen via nasal cannula 3 to permit. DuoNeb by nebulizer every 4 hours. Albuterol via nebulizer every 4 hours as needed. Home oxygen evaluation prior to discharge --DVT prophylaxis Heparin 5000 units subcu every 12 hours for DVT prophylaxis. Pepcid 20 mg p.o. twice daily for GI prophylaxis. --full code status Closely monitor the patient and adjust management as needed DC planning per case management; possible SNF placement Follow-up PT OT evaluation recommendations PT evaluation noted and appreciated recommend subacute placement 02/09; pending placement History Interval history: Have seen and examined the patient at the bedside Patient's chart and medications reviewed patient is clinically feeling better Vital signs stable Hospitalist Physical - Constitutional Vitals: Temp Pulse Resp BP Pulse Ox 97.9 F 93 H 16 153/73 94 02/10/22 03:50 02/10/22 03:50 02/10/22 03:50 02/10/22 03:50 02/10/22 03:50 General appearance: Present: no acute distress, well-nourished - EENT Eyes: Present: PERRL, EOM intact - Neck Neck: Present: supple, normal ROM - Respiratory Respiratory effort: normal Respiratory: bilateral: diminished, negative: rales, rhonchi, wheezing - Cardiovascular Rhythm: regular Heart Sounds: Present: S1 & S2 - Extremities Extremities: no ischemia, No edema - Abdominal General gastrointestinal: soft, non-tender, non-distended, normal bowel sounds - Integumentary Integumentary: Present: clear, warm - Psychiatric Psychiatric: appropriate mood/affect - Neurologic Neurologic: CNII-XII intact, gait normal HEART Score - HEART Score Troponin: Troponin T < 0.010 ng/mL (0.00-0.029) 02/06/22 21:56 Results - Labs CBC & Chem 7: 02/08/22 06:04 02/08/22 06:04 Labs: Laboratory Last Values WBC 5.0 K/mm3 (4.5-11.0) 02/08/22 06:04 RBC 4.61 M/mm3 (3.65-5.03) 02/08/22 06:04 Hgb 11.8 gm/dl (10.1-14.3) 02/08/22 06:04 Hct 37.0 % (30.3-42.9) 02/08/22 06:04 MCV 80 fl (79-97) 02/08/22 06:04 MCH 26 pg (28-32) L 02/08/22 06:04 MCHC 32 % (30-34) 02/08/22 06:04 RDW 18.5 % (13.2-15.2) H 02/08/22 06:04 Plt Count 199 K/mm3 (140-440) 02/08/22 06:04 Lymph % (Auto) 44.6 % (13.4-35.0) H 02/08/22 06:04 [place] % (Auto) 11.1 % (0.0-7.3) H 02/08/22 06:04 Eos % (Auto) 1.3 % (0.0-4.3) 02/08/22 06:04 Baso % (Auto) 0.3 % (0.0-1.8) 02/08/22 06:04 Lymph # (Auto) 2.2 K/mm3 (1.2-5.4) 02/08/22 06:04 [place] # (Auto) 0.6 K/mm3 (0.0-0.8) 02/08/22 06:04 Eos # (Auto) 0.1 K/mm3 (0.0-0.4) 02/08/22 06:04 Baso # (Auto) 0.0 K/mm3 (0.0-0.1) 02/08/22 06:04 Seg Neutrophils % 42.7 % (40.0-70.0) 02/08/22 06:04 Seg Neutrophils # 2.1 K/mm3 (1.8-7.7) 02/08/22 06:04 Sodium 133 mmol/L (137-145) L 02/08/22 06:04 Potassium 3.9 mmol/L (3.6-5.0) 02/08/22 06:04 Chloride 93.5 mmol/L (98-107) L 02/08/22 06:04 Carbon Dioxide 28 mmol/L (22-30) 02/08/22 06:04 Anion Gap 15 mmol/L 02/08/22 06:04 BUN 16 mg/dL (7-17) 02/08/22 06:04 Creatinine 0.8 mg/dL (0.6-1.2) 02/08/22 06:04 Estimated GFR > 60 ml/min 02/08/22 06:04 BUN/Creatinine Ratio 20 % 02/08/22 06:04 Glucose 96 mg/dL (65-100) 02/08/22 06:04 POC Glucose 139 mg/dL (70-105) H 02/09/22 16:10 Lactic Acid 1.30 mmol/L (0.7-2.0) 02/06/22 21:56 Calcium 8.8 mg/dL (8.4-10.2) 02/08/22 06:04 Total Bilirubin 0.30 mg/dL (0.1-1.2) 02/06/22 21:56 AST 25 units/L (5-40) 02/06/22 21:56 ALT 11 units/L (7-56) 02/06/22 21:56 Alkaline Phosphatase 73 units/L (35-129) 02/06/22 21:56 Total Creatine Kinase 42 units/L (30-135) 02/06/22 21:56 Troponin T < 0.010 ng/mL (0.00-0.029) 02/06/22 21:56 Total Protein 7.0 g/dL (6.3-8.2) 02/06/22 21:56 Albumin 4.3 g/dL (3.9-5) 02/06/22 21:56 Albumin/Globulin Ratio 1.6 % 02/06/22 21:56 Microbiology: Microbiology 02/08/22 14:19 Peripheral/Venous Blood Culture - Preliminary NO GROWTH AFTER 24 HOURS 02/08/22 14:19 Peripheral/Venous Blood Culture - Preliminary NO GROWTH AFTER 24 HOURS [place]/IV: Voiding Method External Female Catheter Active Medications - Current Medications Current Medications: Generic Name Dose Route Start Last Admin Trade Name Freq PRN Reason Stop Dose Admin Acetaminophen 650 mg 02/07/22 04:07 02/09/22 18:50 Acetaminophen 325 Mg Tab PO 650 mg Q4H PRN Administration Pain MILD(1-3)/Fever >100.5/MAYA Al Hydrox/Mg Hydrox/Simethicone 30 ml 02/08/22 21:53 02/08/22 22:08 Alum-Mag Hydroxide-Simethicone [id number]/5ml Oral Liqd 30 Ml PO 30 ml Q6HR PRN Administration Indigestion Albuterol 2.5 mg 02/07/22 04:07 Albuterol 2.5 Mg/3 Ml Nebu IH Q3HRT PRN Shortness Of Breath Albuterol/Ipratropium 1 ampul 02/08/22 08:00 02/09/22 20:59 Ipratropium/Albuterol Sulfate 3 Ml Ampul.Neb IH 1 ampul TIDRT LORNE Administration Amlodipine Besylate 5 mg 02/07/22 10:00 02/09/22 11:05 Amlodipine 5 Mg Tab PO 5 mg DAILY LORNE Administration Azithromycin 500 mg 02/07/22 10:00 02/09/22 11:04 Azithromycin 250 Mg Tab PO 02/11/22 10:01 500 mg QDAY LORNE Administration Protocol Dicyclomine HCl 20 mg 02/07/22 04:09 Dicyclomine 20 Mg Tab PO TID PRN BOWEL Famotidine 20 mg 02/07/22 10:00 02/09/22 21:18 Famotidine 20 Mg Tab PO 20 mg BID LORNE Administration Fluticasone Propionate 50 mcg 02/07/22 10:00 02/08/22 13:00 Fluticasone Propionate Nasal [place] 16 Gm NS Not Given QDAY LORNE Furosemide 20 mg 02/07/22 10:00 02/09/22 11:04 Furosemide 20 Mg Tab PO 20 mg QDAY LORNE Administration Gabapentin 600 mg 02/07/22 10:00 02/09/22 11:04 Gabapentin 300 Mg Cap PO 600 mg QDAY LORNE Administration Heparin Sodium (Porcine) 5,000 unit 02/07/22 10:00 02/09/22 21:18 Heparin 5,000 Unit/1 Ml Vial SUB-Q 5,000 unit Q12HR LORNE Administration Ceftriaxone Sodium 2 gm in 100 mls @ 200 mls/hr 02/07/22 10:00 02/09/22 11:05 Rocephin/Ns 2 Gm/100 Ml IV 02/11/22 10:29 200 mls/hr Q24HR LORNE Administration Protocol Morphine Sulfate 2 mg 02/07/22 04:07 Morphine 2 Mg/1 Ml Inj IV Q4H PRN Pain, Moderate (4-6) Morphine Sulfate 4 mg 02/07/22 04:07 Morphine 4 Mg/1 Ml Inj IV Q4H PRN Pain , Severe (7-10) Ondansetron HCl 4 mg 02/07/22 04:07 Ondansetron 4 Mg/2 Ml Inj IV Q8H PRN Nausea And Vomiting Paroxetine HCl 20 mg 02/07/22 10:00 02/09/22 11:04 Paroxetine 20 Mg Tab PO 20 mg QDAY LORNE Administration Quetiapine Fumarate 100 mg 02/07/22 22:00 02/09/22 21:18 Quetiapine 100 Mg Tab PO 100 mg QHS LORNE Administration Sodium Chloride 10 ml 02/07/22 10:00 02/09/22 21:19 Sodium Chloride 0.9% 10 Ml Flush Syringe IV 10 ml BID LORNE Administration Sodium Chloride 10 ml 02/07/22 04:07 Sodium Chloride 0.9% 10 Ml Flush Syringe IV PRN PRN LINE FLUSH
[2022-02-10] MEDS: AZITHROMYCIN 250 MG TAB PO SCH (09:33)
[2022-02-10] MEDS: FAMOTIDINE 20 MG TAB PO SCH (09:33)
[2022-02-10] MEDS: PARoxetine 20 MG TAB PO SCH (09:34)
[2022-02-10] MEDS: cefTRIAXone/NS 2 GM/100 ML 2 GM/100 ML BAG IV SCH (09:35)
[2022-02-10] MEDS: HEPARIN 5,000 UNIT/1 ML VIAL SUB-Q SCH (09:35)
[2022-02-10] MEDS: GABAPENTIN 300 MG CAP PO SCH (09:35)
[2022-02-10] MEDS: amLODIPine 5 MG TAB PO SCH (09:36)
[2022-02-10] MEDS: FUROSEMIDE 20 MG TAB PO SCH (09:36)
[2022-02-10] MEDS: FLUTICASONE PROPIONATE NASAL SPRAY 16 GM NS SCH (10:21)
[2022-02-10] MEDS: ALUM-MAG HYDROXIDE-SIMETHICONE 200-200-20MG/5ML ORAL LIQD 30 ML PO PRN (10:32)
[2022-02-10] MEDS: IPRATROPIUM/ALBUTEROL SULFATE 3 ML AMPUL.NEB IH SCH ×2 (10:34→15:18)
--- NOTE | 2022-02-10 12:14 | Discharge Summary ---
Providers - Providers Date of Admission: 02/07/22 04:07 Date of discharge: 02/10/22 Attending physician: MARIA FERNANDA GARCIA 02/09/22 11:45 Occupational Therapy Evaluate and Treat [CONS] Routine Comment: Reason For Exam: tia/cva 02/09/22 11:49 Physical Therapy Evaluation and Treat [CONS] Routine Comment: Reason For Exam: tia/cva Primary care physician: MARGARET LOPEZ Hospitalization Reason for admission: Fever generalized weakness Condition: Stable Pertinent studies: Chest x-ray mild residual patchy airspace opacities throughout the lungs which may represent residual infection process study on 02/07/2020 Cultures negative to date Hospital course: -76-year-old female patient with significant past medical history of pneumonia ,acute kidney injury and hypertension was admitted through emergency room with generalized weakness and fever temperature of 101 F patient i was vaccinated for COVID and the boosters initial work-up is consistent with possible gram- negative pneumonia admitted to the hospital managed with empiric antibiotics oxygen nebulizers patient's symptoms slowly but gradually improved today hemodynamically and clinically stable at discharge comfortable, no new complaints, vital signs stable, physical examination prior to discharge is unremarkable. Case management has assisted with discharge planning patient is being discharged to [facility] assisted today. Hemodynamically and clinically stable at discharge Discharge diagnosis: -possible gram-negative pneumonia Oxygen via nasal cannula 3 to permit. Rocephin 2 g IV daily. Zithromax 500 mg p.o. daily. Follow blood cultures, titrate O2 sats to more than 90% Supportive care --Fever; probably due to pneumonia Tylenol 650 mg p.o. every 6 hours as needed. Rocephin 2 g IV daily. Zithromax 500 mg p.o. daily. We will do the blood cultures sputum culture. Closely monitor --Hypertension Hydralazine 10 mg IV every 6 hours as needed. Amlodipine 5 mg p.o. daily. We continue the home medication -- AUNG (acute kidney injury) present on admission Due to vasomotor nephropathy Follow renal function, gentle hydration, avoid nephrotoxins, AUNG resolved --COPD (chronic obstructive pulmonary disease) chronic Oxygen via nasal cannula 3 to permit. DuoNeb by nebulizer every 4 hours. Albuterol via nebulizer every 4 hours as needed. Home oxygen evaluation prior to discharge --DVT prophylaxis Heparin 5000 units subcu every 12 hours for DVT prophylaxis. Pepcid 20 mg p.o. twice daily for GI prophylaxis. --full code status Closely monitor the patient and adjust management as needed DC planning per case management; possible SNF placement Follow-up PT OT evaluation recommendations PT evaluation noted and appreciated recommend subacute placement 02/09; pending placement patient is stable at discharge Discharge to SNF today. Case management to assist with the discharge Disposition: 03 [facility] Final Discharge Diagnosis (Prints w/discharge instructions): Possible gram- negative pneumonia. Fevers due to pneumonia. Hypertension. Acute kidney injury vasomotor nephropathy present on admission. COPD chronic. DVT prophylaxis Time spent for discharge: 35 minutes Core Measure Documentation - Palliative Care Palliative Care/ Comfort Measures: Not Applicable - Core Measures Any of the following diagnoses?: none Exam - Constitutional Vitals: Temp Pulse Resp BP Pulse Ox 98.0 F 91 H 16 117/66 93 02/10/22 08:09 02/10/22 08:09 02/10/22 03:50 02/10/22 08:09 02/10/22 08:09 General appearance: Present: no acute distress, well-nourished - EENT Eyes: Present: PERRL, EOM intact ENT: hearing intact - Neck Neck: Present: supple, normal ROM - Respiratory Respiratory: bilateral: CTA, rhonchi - Cardiovascular Rhythm: regular Heart Sounds: Present: S1 & S2 - Extremities Extremities: no ischemia, pulses intact - Abdominal General gastrointestinal: Present: soft, non-tender - Musculoskeletal Musculoskeletal: generalized weakness - Psychiatric Psychiatric: appropriate mood/affect - Neurologic Neurologic: moves all extremities Plan Activity: advance as tolerated, fall precautions Diet: other (Cardiac diet as tolerated) Additional Instructions: Fall precautions. Aspiration precautions. The patient has worsening symptoms contact MD or go to the nearest emergency room as needed. Strongly advised to comply with medications, diet, follow-up visits Follow up with: MARGARET LOPEZ MD [Primary Care Provider] - 3-5 Days Prescriptions: cefUROXime [Ceftin] 500 mg PO Q12HR 3 Days #6 tablet
[2022-02-10 15:50] VITALS: BP 104/53
== END 2022-02-10 18:18 | DRG 177 ==
LOC: ED 19:52 → 4A 02-07 04:07
PROVIDERS: ADMIT Hospitalist; ATTEND Internal Medicine
DX: J15.6 Pneumonia due to other Gram-negative bacteria (principal); N17.0 Acute kidney failure with tubular necrosis; Z20.822 Contact with and (suspected) exposure to COVID-19; J44.9 Chronic obstructive pulmonary disease, unspecified; Z88.8 Allergy status to other drugs, medicaments and biological substances; Z82.49 Family history of ischemic heart disease and other diseases of the circulatory system; Z90.49 Acquired absence of other specified parts of digestive tract
CPT/HCPCS: 36415; 71045; 80048; 80053; 82140; 82550; 82962; 84484; 85025; 87040; 93005; 94640; 94760; 99285; G0378; J0696; J1644; J7030; U0003